=== PATIENT | male | born 1935 | race Caucasian/White ===

== ENCOUNTER 2023-10-02 12:31 | Inpatient (IN) ==
--- NOTE | 2023-10-02 13:04 | Emergency Department Note ---
Impression & Plan Acute respiratory failure with hypoxia, Atrial fibrillation with rapid ventricular response, Acute exacerbation of CHF (congestive heart failure), Elevated brain natriuretic peptide (BNP) level, Atrial fibrillation, new onset ED Provider Note NAME: GALDINO ELMORE AGE: 88 SEX: M ARRIVES VIA: Ambulance INFORMANT: Patient ED PROVIDER(S): Aamir Franz MD CHIEF COMPLAINT: Shortness of breath. PLAN: Disposition: Admit MEDICAL DECISION MAKING: The patient is a pleasant 88 gentleman who presents to the emergency department via EMS from [facility] urgent care for symptoms shortness of breath with new onset atrial fibrillation with RVR in the 130s-150s. Patient ports he has had ongoing cough and congestion over the past couple weeks which has been productive. He has any fevers. He feels short of breath. He denies nausea, vomiting or diarrhea. The patient and his at bedside deny any recent falls. On my evaluation the patient is ill-appearing with labored breathing with wheezes and rhonchi of bilateral lung stewart with O2 saturation down to 88% on room air with respiratory rate in the upper 20s and heart rate ranging from the 110s-130s in atrial fibrillation with RVR. He appears hypervolemic with 1+ bilateral lower extremity pitting edema. He has mild anasarca. EKG demonstrates atrial fibrillation with RVR without overt ST elevation or depression. I did perform a limited bedside cardiac ultrasound which demonstrates suspected mild LV systolic dysfunction with apical hypokinesis/?Takotsubo. Diffuse B-lines of bilateral lung stewart present on ultrasound suggestive of pulmonary edema. I did review the patient's critical illness with the patient and his at the bedside. We discussed the patient's CODE STATUS and he does agree that he would not want CPR if his heart were to stop and would not want to be placed on a breathing machine. Given the patient's work of breathing with new onset atrial fibrillation and CHF with pulmonary edema patient was ordered for BiPAP. Given component of bronchospasm to exam he was ordered for Solu-Medrol and Xopenex neb x 1. Patient's respiratory status was significantly improved subsequently. WBC, hemoglobin and platelets within normal limits. VBG with pCO2 of 56 and pH of 7.35 consistent with component of bronchospasm on exam but no significant hypercapnia. Chemistry without metabolic acidosis. Electrolytes without significant abnormality. LFTs without significant abnormality. High- sensitivity troponin 10.5, within normal limits. BNP is elevated at 672 without prior for comparison but consistent with the patient's atrial fibrillation with RVR and suspicion for component of new CHF. Procalcitonin was undetectable. UA without convincing evidence of infection. Respiratory BioFire was negative. 20 mg of IV Lasix ordered for initiation of diuresis. Case was discussed Anthony Armendariz PAC, with Dr. Zaki Cruz hospitalist who will evaluate the patient for admission. Given the patient's new onset atrial fibrillation and [id number] score we agreed to proceed with initiation of anticoagulation with heparin drip without bolus. Initially, 5 mg of IV Lopressor administered for rate control. Further management per admitting team. Triage Nursing notes reviewed and agree them. Prior/external medical records reviewed Vital Signs: reviewed Differential diagnosis: Reactive airway disease, pneumonia, pneumothorax, COPD, CHF, infections, cardiac ischemia, pulmonary embolism, musculoskeletal, gastrointestinal, as well as other pathologies. ER treatment provided: See below. Diagnostics interpreted by me: ECG: Atrial fibrillation with RVR, 122 bpm, no ectopy, no overt ST elevation or depression, QTc 424, QRS 102. Cardiac Monitoring: An order for continuous cardiac monitoring was placed and demonstrated Atrial fibrillation with RVR, 122 bpm, no ectopy. Laboratory studies: See below Imaging studies: See below Consultation(s): Anthony Armendariz PAC, with Dr. Zaki Cruz hospitalist HPI: The patient is a pleasant 88 gentleman who presents to the emergency department via EMS from [facility] urgent care for symptoms shortness of breath with new onset atrial fibrillation with RVR in the 130s-150s. Patient ports he has had ongoing cough and congestion over the past couple weeks which has been productive. He has any fevers. He feels short of breath. He denies nausea, vomiting or diarrhea. The patient and his at bedside deny any recent falls. ROS: See above HPI for pertinent positives & negatives. A total of 10 systems reviewed and were otherwise negative. VITALS:See Below PHYSICAL EXAMINATION: GENERAL: Awake, alert, ill-appearing, moderate respiratory distress. HENT: Normocephalic, atraumatic. Oropharynx unremarkable. EYES: Normal conjunctiva. Sclera non-icteric. NECK: Supple. No nuchal rigidity. FROM. No JVD. RESPIRATORY: Labored breathing with wheezes and rhonchi of bilateral lung stewart CARDIAC: Tachycardic rate, irregular rhythm. Extremities warm and well perfused. Pulses equal. ABDOMEN: Soft, non-distended. No tenderness to palpation. No rebound or guarding. No masses. RECTAL: Deferred. MUSCULOSKELETAL: Chest examination reveals no tenderness. The back is symmetrical on inspection without obvious abnormality. There is no CVA tenderness to palpation. No joint edema. LOWER EXTREMITIES: Calves are equal size bilaterally and non-tender. 1+ BLE edema. No discoloration. NEURO: A&O x 4 at this time. No focal sensory or motor deficits noted. SKIN: No rash or jaundice noted. ED COURSE: Critical Care: I have personally spent greater than 65 minutes of critical care time in the direct management of this patient. This includes bedside care, interpretation of diagnostic studies, and testing, discussion with consultants, patient, and family members, and other required patient management activities. This 65 minutes is in excess of all separately billable procedures. Aamir Franz MD Past Med/Surg History Medical History Mitral valve insufficiency GERD (gastroesophageal reflux disease) Surgical History Hx of colonoscopy Hx of cataract extraction Family History Mother Cancer Sister Cancer Father Heart disease Social History Smoking Status: Never smoker Do You Dip or Chew Tobacco: No; Hx Alcohol Use: Yes Hx Substance Use: No Preferred Language: Danish Communication Ability: Effective Reserves Clerk Required: No Beliefs That Will Affect Care: None Current Living Situation: Spouse Other Information That Helps Us Care for You: No Feels Safe at Home: Yes Safety Concerns: Feels Safe At This Time Assistive Devices: Glasses Allergies Allergies Allergy/AdvReac Type Severity Reaction Status Date / Time No Known Allergies Allergy Unverified 10/02/23 13:10 Home Meds Home Medications Medication Instructions Recorded Confirmed aspirin 81 mg tablet,delayed 81 mg PO DAILY 10/02/23 10/02/23 release docusate sodium 100 mg capsule 100 mg PO DAILY 10/02/23 10/02/23 (Dulcolax Stool Softener (docusate)) Results & Data (ED) Vital Signs Vital Signs - 24 hr 10/02/23 12:42 10/02/23 12:44 10/02/23 12:45 Pulse Rate 127 H 118 H 119 H Pulse Rate [Right Finger] Pulse Rate from SpO2 Sensor 116 H Respiratory Rate 28 H 22 Respiratory Effort / Characteristics Spontaneous SOB on Exertion Respiratory Depth Normal Respiratory Pattern Blood Pressure 116/94 Blood Pressure Mean 101 Pulse Oximetry 93 91 Oxygen Delivery Method Room Air Fraction of Inspired Oxygen Sepsis Recent Fever Within 48 Hours No Sepsis New/Unexplained Change in Mental Status No Sepsis Action Taken by Nursing Physician Notified 10/02/23 12:48 10/02/23 12:48 10/02/23 12:53 Pulse Rate Pulse Rate [Right Finger] Pulse Rate from SpO2 Sensor Respiratory Rate Respiratory Effort / Characteristics Respiratory Depth Shallow Respiratory Pattern Rapid/Shallow Blood Pressure Blood Pressure Mean Pulse Oximetry 93 88 L Oxygen Delivery Method Room Air Room Air Fraction of Inspired Oxygen Sepsis Recent Fever Within 48 Hours Sepsis New/Unexplained Change in Mental Status Sepsis Action Taken by Nursing 10/02/23 13:00 10/02/23 13:05 10/02/23 13:06 Pulse Rate 128 H 123 H Pulse Rate [Right Finger] 123 H Pulse Rate from SpO2 Sensor 129 H Respiratory Rate 19 28 H 28 H Respiratory Effort / Characteristics Spontaneous Spontaneous Respiratory Depth Normal Respiratory Pattern Tachypnea Blood Pressure Blood Pressure Mean Pulse Oximetry 93 94 94 Oxygen Delivery Method BiPAP Fraction of Inspired Oxygen 30 30 Sepsis Recent Fever Within 48 Hours Sepsis New/Unexplained Change in Mental Status Sepsis Action Taken by Nursing 10/02/23 13:30 Pulse Rate 134 H Pulse Rate [Right Finger] Pulse Rate from SpO2 Sensor 137 H Respiratory Rate 18 Respiratory Effort / Characteristics Respiratory Depth Respiratory Pattern Blood Pressure Blood Pressure Mean Pulse Oximetry 96 Oxygen Delivery Method BiPAP Fraction of Inspired Oxygen Sepsis Recent Fever Within 48 Hours Sepsis New/Unexplained Change in Mental Status Sepsis Action Taken by Nursing Laboratory Data Attestation: I reviewed the patient's lab results. 10/02/23 12:45 10/02/23 12:45 Lab Results 10/02/23 10/02/23 10/02/23 Range/Units 12:45 13:00 13:09 WBC 8.77 (4.8-10.8) K/ul RBC 4.12 L (4.70-6.10) M/uL Hgb 14.4 (14.0-18.0) g/dl POC Hgb 13.9 L (14.0-18.0) g/dl Hct 40.3 L (42.0-52.0) % POC Hct 41 L (42-52) % MCV 97.8 (80.0-100.0) fL MCH 35.0 H (25.0-34.0) pg MCHC 35.7 (32.0-36.0) g/dL RDW Std Deviation 51.8 H (36.4-46.3) fL RDW Coeff of Gabbi 15.2 H (11.5-14.5) % Plt Count 278 (130-400) K/uL MPV 11.2 (9.4-12.4) fL Immature Gran % (Auto) 2.3 % Neut % (Auto) 76.7 % Lymph % (Auto) 11.9 % Zavala % (Auto) 7.4 % Eos % (Auto) 0.9 % Baso % (Auto) 0.8 % Neut # (Auto) 6.73 H (1.40-6.50) K/uL Lymph # (Auto) 1.04 L (1.20-3.40) K/uL Zavala # (Auto) 0.65 H (0.11-0.59) K/uL Eos # (Auto) 0.08 (0.00-0.50) K/uL Baso # (Auto) 0.07 (0.00-0.20) K/uL Immature Gran # (Auto) 0.20 (0.01-0.20) K/uL PT 12.9 H (9.0-12.0) Seconds INR 1.2 H (0.9-1.1) VBG pH 7.35 L (7.36-7.41) VBG pCO2 56 H (38-50) mmHg VBG pO2 22 mmHg VBG HCO3 31 mmol/L VBG O2 Saturation < 60.0 % VBG Base Excess 3.8 mEq/L POC Sodium 141 (135-144) mmol/L Sodium 140 (136-145) mmol/L POC Potassium 4.4 (3.3-5.0) mmol/L Potassium 4.7 (3.5-5.1) mmol/L POC Chloride 103 (101-112) mmol/L Chloride 104 (98-107) mmol/L Carbon Dioxide 31 (21-32) mmol/L POC Total CO2 28 (24-31) mmol/L Anion Gap 5 (3-11) POC Anion Gap 16.0 (16-25) mmol/L POC BUN 32 H (7-18) mg/dl BUN 35 H (6-23) mg/dl Creatinine 1.06 (0.6-1.4) mg/dl POC Creatinine 1.0 (0.6-1.3) mg/dl Est Cr Clr Drug Dosing 51.2 ml/min Est GFR ( Amer) 71.8 ml/min Est GFR (Non-Af Amer) 61.9 ml/min BUN/Creatinine Ratio 33.0 H (10-20) Glucose 131 H (70-99(Fasting)) mg/dl POC Glucose (other) 130 H (70-99) mg/dl Lactate 1.5 (0.4-2.0) mmol/L Calcium 9.4 (8.6-10.3) mg/dl POC Ioniz Calcium Lizzy 1.16 (1.12-1.32) mmol/l Magnesium 2.1 (1.7-2.4) mg/dl Total Bilirubin 1.1 H (0.2-1.0) mg/dl Direct Bilirubin 0.3 H (0-0.2) mg/dl AST 15 (13-39) U/L ALT 19 (7-52) U/L Alkaline Phosphatase 101 (34-104) U/L Troponin I High Sens 10.5 (0-20) pg/ml B-Natriuretic Peptide 672 H (0-100) pg/ml Total Protein 7.1 (6.0-8.3) gm/dl Albumin 4.1 (3.4-5.0) gm/dl Lipase 10 L (11-82) U/L Procalcitonin < 0.05 (0-0.5) ng/ml Urine Color Urine Appearance (Clear) Urine pH (4.5-7.5) Ur Specific [place] (1.000-1.030) Urine Protein (Negative) Urine Glucose (UA) (Negative) Urine Ketones (Negative) Urine Blood (Negative) Urine Nitrite (Negative) Urine Bilirubin (Negative) Urine Urobilinogen (Negative) Ur Leukocyte Esterase (Negative) Urine WBC (Auto) (0-5) /hpf Urine RBC (Auto) (0-4) /hpf U Hyaline Cast (Auto) (0-5) /lpf U Epithel Cells (Auto) (0-5) /lpf Urine Bacteria (Auto) (Negative) Adenovirus (PCR) Not Detected (NotDetected) B. pertussis DNA (PCR) Not Detected (NotDetected) B.parapertussis DNA PCR Not Detected (NotDetected) C. pneumoniae DNA (PCR) Not Detected (NotDetected) Coronavirus OC43 (PCR) Not Detected (NotDetected) Coronavirus HKU1 (PCR) Not Detected (NotDetected) Coronavirus 229E (PCR) Not Detected (NotDetected) SARS-CoV-2 (PCR) Not Detected (NotDetected) Coronavirus NL63 (PCR) Not Detected (NotDetected) Human Metapneumovir PCR Not Detected (NotDetected) Influenza Type A (PCR) Not Detected (NotDetected) Influenza Type B (PCR) Not Detected (NotDetected) M. pneumoniae (PCR) Not Detected (NotDetected) Parainfluenza 1 (PCR) Not Detected (NotDetected) Parainfluenza 2 (PCR) Not Detected (NotDetected) Parainfluenza 3 (PCR) Not Detected (NotDetected) Parainfluenza 4 (PCR) Not Detected (NotDetected) RSV (PCR) Not Detected (NotDetected) Entero/Rhino (PCR) Not Detected (NotDetected) 10/02/23 Range/Units 13:25 WBC (4.8-10.8) K/ul RBC (4.70-6.10) M/uL Hgb (14.0-18.0) g/dl POC Hgb (14.0-18.0) g/dl Hct (42.0-52.0) % POC Hct (42-52) % MCV (80.0-100.0) fL MCH (25.0-34.0) pg MCHC (32.0-36.0) g/dL RDW Std Deviation (36.4-46.3) fL RDW Coeff of Gabbi (11.5-14.5) % Plt Count (130-400) K/uL MPV (9.4-12.4) fL Immature Gran % (Auto) % Neut % (Auto) % Lymph % (Auto) % Zavala % (Auto) % Eos % (Auto) % Baso % (Auto) % Neut # (Auto) (1.40-6.50) K/uL Lymph # (Auto) (1.20-3.40) K/uL Zavala # (Auto) (0.11-0.59) K/uL Eos # (Auto) (0.00-0.50) K/uL Baso # (Auto) (0.00-0.20) K/uL Immature Gran # (Auto) (0.01-0.20) K/uL PT (9.0-12.0) Seconds INR (0.9-1.1) VBG pH (7.36-7.41) VBG pCO2 (38-50) mmHg VBG pO2 mmHg VBG HCO3 mmol/L VBG O2 Saturation % VBG Base Excess mEq/L POC Sodium (135-144) mmol/L Sodium (136-145) mmol/L POC Potassium (3.3-5.0) mmol/L Potassium (3.5-5.1) mmol/L POC Chloride (101-112) mmol/L Chloride (98-107) mmol/L Carbon Dioxide (21-32) mmol/L POC Total CO2 (24-31) mmol/L Anion Gap (3-11) POC Anion Gap (16-25) mmol/L POC BUN (7-18) mg/dl BUN (6-23) mg/dl Creatinine (0.6-1.4) mg/dl POC Creatinine (0.6-1.3) mg/dl Est Cr Clr Drug Dosing ml/min Est GFR ( Amer) ml/min Est GFR (Non-Af Amer) ml/min BUN/Creatinine Ratio (10-20) Glucose (70-99(Fasting)) mg/dl POC Glucose (other) (70-99) mg/dl Lactate (0.4-2.0) mmol/L Calcium (8.6-10.3) mg/dl POC Ioniz Calcium Lizzy (1.12-1.32) mmol/l Magnesium (1.7-2.4) mg/dl Total Bilirubin (0.2-1.0) mg/dl Direct Bilirubin (0-0.2) mg/dl AST (13-39) U/L ALT (7-52) U/L Alkaline Phosphatase (34-104) U/L Troponin I High Sens (0-20) pg/ml B-Natriuretic Peptide (0-100) pg/ml Total Protein (6.0-8.3) gm/dl Albumin (3.4-5.0) gm/dl Lipase (11-82) U/L Procalcitonin (0-0.5) ng/ml Urine Color Dark Yellow Urine Appearance Clear (Clear) Urine pH 5.0 (4.5-7.5) Ur Specific [place] 1.026 (1.000-1.030) Urine Protein Trace H (Negative) Urine Glucose (UA) Negative (Negative) Urine Ketones Trace H (Negative) Urine Blood Negative (Negative) Urine Nitrite Negative (Negative) Urine Bilirubin 1+ H (Negative) Urine Urobilinogen Negative (Negative) Ur Leukocyte Esterase Negative (Negative) Urine WBC (Auto) 1-5 (0-5) /hpf Urine RBC (Auto) 0-4 (0-4) /hpf U Hyaline Cast (Auto) 1-5 (0-5) /lpf U Epithel Cells (Auto) 10-20 H (0-5) /lpf Urine Bacteria (Auto) Negative (Negative) Adenovirus (PCR) (NotDetected) B. pertussis DNA (PCR) (NotDetected) B.parapertussis DNA PCR (NotDetected) C. pneumoniae DNA (PCR) (NotDetected) Coronavirus OC43 (PCR) (NotDetected) Coronavirus HKU1 (PCR) (NotDetected) Coronavirus 229E (PCR) (NotDetected) SARS-CoV-2 (PCR) (NotDetected) Coronavirus NL63 (PCR) (NotDetected) Human Metapneumovir PCR (NotDetected) Influenza Type A (PCR) (NotDetected) Influenza Type B (PCR) (NotDetected) M. pneumoniae (PCR) (NotDetected) Parainfluenza 1 (PCR) (NotDetected) Parainfluenza 2 (PCR) (NotDetected) Parainfluenza 3 (PCR) (NotDetected) Parainfluenza 4 (PCR) (NotDetected) RSV (PCR) (NotDetected) Entero/Rhino (PCR) (NotDetected) Administered Medications Heparin Sodium/Dextrose (Heparin Sodium/Dextrose) 25,000 units in 500 mls @ 28 mls/hr IV .[id number] DORIAN; Protocol Stop: 11/01/23 14:29 Last Titration: 10/02/23 18:52 Dose: 1,400 units/hr, 28 mls/hr Documented By: ADI Co-signed By: CAROLINE Admin: 10/02/23 14:32 Dose: 1,400 units/hr, 28 mls/hr Documented By: ABIMAEL Co-signed By: HEIDY Discontinued Medications Furosemide (Furosemide Inj 20 Mg/2 Ml Vial) 20 mg IV ONE ONE Stop: 10/02/23 13:46 Last Admin: 10/02/23 13:57 Dose: 20 mg Documented By: LARRY Co-signed By: HEIDY Heparin Sodium/Dextrose (Heparin Iv Adult Wt-Based Standard *No* Initial Bolus Protocol) 1 each IV ONE STA; Protocol Stop: 10/02/23 14:10 Last Admin: 10/02/23 14:33 Dose: 1 each Documented By: ABIMAEL Levalbuterol HCl (Levalbuterol Hcl 0.63 Mg/3 Ml Neb) 0.63 mg NEB NOW STA; Protocol Stop: 10/02/23 12:41 Last Admin: 10/02/23 13:05 Dose: 0.63 mg Documented By: HAKEEM Methylprednisolone (Methylprednisolone 125 Mg/2 Ml Vial) 125 mg IV NOW STA Stop: 10/02/23 12:41 Last Admin: 10/02/23 13:09 Dose: 125 mg Documented By: BRANDIE Metoprolol Tartrate (Metoprolol Tartrate 1 Mg/Ml Vial) 5 mg IV NOW STA Stop: 10/02/23 14:10 Last Admin: 10/02/23 14:33 Dose: 5 mg Documented By: ABIMAEL Metoprolol Tartrate (Metoprolol Tartrate 25 Mg Tab) 12.5 mg PO BID [facility] Stop: 11/01/23 14:59 Last Admin: 10/02/23 17:29 Dose: 12.5 mg Documented By: ASHLEY Imaging Data Radiologist's Impression: Chest X-Ray 10/02/23 12:37 XR chest 1V portable HISTORY: Sepsis COMPARISON: None. FINDINGS: No pneumothorax. The heart is enlarged. Trace bilateral pleural fusions and bibasilar linear densities. There is diffuse interstitial/vascular thickening consistent with mild congestive change. Calcifications within the aortic knob. No acute fractures identified. IMPRESSION: 1. Cardiomegaly with mild congestive change and trace bilateral pleural effusions. 2. Bibasilar linear densities are nonspecific but may represent atelectasis. A pneumonia could also have a similar appearance in the appropriate clinical setting. ACT 112: Negative or not required by law. Electronically signed by: Alon Shaikh M.D. 10/02/2023 1:23 PM Discharge Plan Visit Data Chief Complaint: Shortness of Breath/Dyspnea Stated Complaint: SOB ED Provider: Aamir Franz Discharge Problem: Acute respiratory failure with hypoxia, Atrial fibrillation with rapid ventricular response, Acute exacerbation of CHF (congestive heart failure), Elevated brain natriuretic peptide (BNP) level, Atrial fibrillation, new onset Patient Disposition: Admitted As Inpatient Discharge Instructions Interventions: ED Discharge Assessment Last Done: 10/02/23 17:55 Discharge Problem: Acute exacerbation of CHF (congestive heart failure) Qualifiers: Heart failure type: unspecified Qualified Code(s): I50.9 - Heart failure, unspecified
[2023-10-02] MEDS: LEVALBUTEROL HCL 0.63 MG/3 ML NEB NEB STA (13:05)
[2023-10-02] MEDS: methylPREDNISolone 125 MG/2 ML VIAL IV STA (13:09)
[2023-10-02 13:11] LABS: Base Excess VBG 3.8 mEq/L; HCO3 VBG 31 mmol/L; Oxygen Saturation VBG < 60.0 %; PCO2 VBG 56 mmHg (38-50); PO2 VBG 22 mmHg; pH VBG 7.35 (7.36-7.41)
[2023-10-02 13:22] LABS: iSTAT Hemoglobin 13.9 g/dl (14.0-18.0); iSTAT Ionized Calcium 1.16 mmol/l (1.12-1.32); iSTAT Potassium 4.4 mmol/L (3.3-5.0)
--- NOTE | 2023-10-02 13:24 | XRay Report ---
XR chest 1V portable HISTORY: Sepsis COMPARISON: None. FINDINGS: No pneumothorax. The heart is enlarged. Trace bilateral pleural fusions and bibasilar linea r densities. There is diffuse interstitial/vascular thickening consistent with mild congestive change . Calcifications within the aortic knob. No acute fractures identified. IMPRESSION: 1. Cardiomegaly with mild congestive change and trace bilateral pleural effusions. 2. Bibasilar linear densities are nonspecific but may represent atelectasis. A pneumonia could also h ave a similar appearance in the appropriate clinical setting. ACT 112: Negative or not required by law. Electronically signed by: Alon Shaikh M.D. 10/02/2023 1:23 PM
[2023-10-02 13:35] LABS: Albumin Level 4.1 gm/dl (3.4-5.0); Bilirubin Direct 0.3 mg/dl (0-0.2); Bilirubin,Total 1.1 mg/dl (0.2-1.0); Calcium 9.4 mg/dl (8.6-10.3); Creatinine Clr Calc Pharmacy 51.2 ml/min; Est GFR (African American) 71.8 ml/min; Est GFR (Non-African American) 61.9 ml/min; Magnesium 2.1 mg/dl (1.7-2.4); Potassium 4.7 mmol/L (3.5-5.1); Total Protein 7.1 gm/dl (6.0-8.3)
[2023-10-02 13:38] LABS: Basophils # (auto) 0.07 K/uL (0.00-0.20); Basophils % (auto) 0.8 %; Eosinophils # (auto) 0.08 K/uL (0.00-0.50); Eosinophils % (auto) 0.9 %; Hematocrit (blood only) 40.3 % (42.0-52.0); Hemoglobin 14.4 g/dl (14.0-18.0); Immature Granulocytes % (auto) 2.3 %; Lymphocytes # (auto) 1.04 K/uL (1.20-3.40); Lymphocytes % (auto) 11.9 %; Mean Corpuscular Hgb Conc 35.7 g/dL (32.0-36.0); Mean Corpuscular Volume 97.8 fL (80.0-100.0); Mean Platelet Volume 11.2 fL (9.4-12.4); Monocytes # (auto) 0.65 K/uL (0.11-0.59); Monocytes % (auto) 7.4 %; Neutrophils # (auto) 6.73 K/uL (1.40-6.50); Neutrophils % (auto) 76.7 %; Platelet Count 278 K/uL (130-400); RDW Coefficient of Variation 15.2 % (11.5-14.5); RDW Standard Deviation 51.8 fL (36.4-46.3); Red Blood Count 4.12 M/uL (4.70-6.10); White Blood Count 8.77 K/ul (4.8-10.8)
[2023-10-02 13:41] LABS: Troponin I High Sensitivity 10.5 pg/ml (0-20)
[2023-10-02 13:47] LABS: INR 1.2 (0.9-1.1); Prothrombin Time 12.9 Seconds (9.0-12.0)
[2023-10-02 13:54] LABS: Appearance Urine Clear (Clear); Bacteria Urine Automated Negative (Negative); Blood Urine Negative (Negative); Color Urine Dark Yellow; Glucose Urine UA Negative (Negative); Ketones Urine Trace (Negative); Leukocyte Esterase Urine Negative (Negative); Nitrite Urine Negative (Negative); Protein Urine Trace (Negative); RBC Urine Automated 0-4 /hpf (0-4); Specific Gravity Urine 1.026 (1.000-1.030); Urobilinogen Urine Negative (Negative)
[2023-10-02 13:55] LABS: Bilirubin Urine 1+ (Negative)
[2023-10-02] MEDS: FUROSEMIDE INJ 20 MG/2 ML VIAL IV ONE (13:57)
[2023-10-02 14:00] LABS: Adenovirus PCR Not Detected (NotDetected); Bordetella parapertussis PCR Not Detected (NotDetected); Bordetella pertussis PCR Not Detected (NotDetected); Chlamydia pneumoniae PCR Not Detected (NotDetected); Coronavirus 229E PCR Not Detected (NotDetected); Coronavirus CoV-2 (COVID19)PCR Not Detected (NotDetected); Coronavirus HKU1 PCR Not Detected (NotDetected); Coronavirus NL63 PCR Not Detected (NotDetected); Coronavirus OC43PCR Not Detected (NotDetected); Human Metapneumovirus PCR Not Detected (NotDetected); Influenza A PCR Not Detected (NotDetected); Influenza B PCR Not Detected (NotDetected); Mycoplasma pneumoniae PCR Not Detected (NotDetected); Parainfluenza Virus 1 PCR Not Detected (NotDetected); Parainfluenza Virus 2 PCR Not Detected (NotDetected); Parainfluenza Virus 3 PCR Not Detected (NotDetected); Parainfluenza Virus 4 PCR Not Detected (NotDetected); Respiratory Syncytial VirusPCR Not Detected (NotDetected); Rhinovirus/Enterovirus PCR Not Detected (NotDetected)
--- NOTE | 2023-10-02 14:11 | History & Physical Report ---
Date of Service October 02, 2023 Assessment & Plan (1) Acute respiratory failure with hypoxia: (2) Atrial fibrillation with rapid ventricular response: (3) Acute exacerbation of CHF (congestive heart failure): (4) GERD (gastroesophageal reflux disease): Plan: - Admit to PCU - Cardiology consulted for acute new onset CHF exacerbation with fluid overload, atrial fibrillation with RVR with HR in 130s, acute hypoxic resp failure with no previous O2 needs, likely exacerbated by viral illness which started a few weeks ago. - Pt on 3 L via NC s/p nebulizer tx and BIPAP for short time frame, wet cough, respiratory status significantly improved. VBG showing pH of 7.35, P CO2 56. - Lasix 20 mg IV given, vera cath inserted for diuresis, continue lasix IV pending urine outs - Obtain 2d echo - EKG reviewed personally with afib rvr with hr in 140s - Metoprolol 5 mg IV x 1 now - improved HR to high 90s-105, will start metoprolol 12.5 mg PO BID with first dose now - BNP is 672, inital troponin negative - Started on heparin gtt without bolus for CHADs Vasc score of 2 - Will start on dulcolax and miralax for hx of constipation, hx of hemorrhoid last summer and remote hx of c.diff - Pt initially received solumedrol 125 mg IV x 1, however no hx of smoking, negative RVP, no need to continue for now - will continue home baby aspirin DVT ppx: teds, scds, heparin gtt Lines: 2 PIV FEN/GI: HH diet, fluid restriction 1500 ml CODE: DNR/DNI Dispo: From home, likely to remain in the hospital x 1-2 days A total of 80 minutes were spent with greater than 50% of that time face to face with the patient, personally reviewing all current laboratories, imaging studies, past medication reconciliation, outpatient chart review, and discussion with specialists to collaborate care for the patient with attending. Please see attending documentation for corrections and/or additions. History of Present Illness Chief Complaint: Shortness of breath Primary Care Provider: Brett Agustin, This is an 88-year-old male with PMHx of GERD, history of basal cell carcinoma of scalp/skin of neck, mitral valve regurgitation, history of colonic polyp removal, presents to the hospital with acute onset of shortness of breath. He was sent over from urgent care visit to facility because of O2 sats reading in the high 80s low 90s.. Patient is found to be in what appears to be new onset heart failure and atrial fibrillation with heart rate of 120-130s upon presentation. He notes that he has had viral symptoms for a few weeks. Here his BNP is 672, heart rate in the 130s, BP is stable at 116/94, he was placed on DuoNeb treatment and BiPAP and his respiratory status significantly improved. VBG showing pH of 7.35, P CO2 56. The patient is present at bedside. Pt states that on Sep 17 pt went to a nurse visit for a cough, was given mucinex. He was working with a nurse and got a cough medication Desolin every 12 hrs. Pt still with a nonproductive cough. He has had dizziness, nausea and sometimes disoriented. Pt concerned that he wasn't breathing well, not getting enough O2. She has attempted to get in contact with provider since last due to his decline, but today was instructed to go to urgent care clinic. They referred him here. Pt notes he has never had heart issues before, denies swelling in the legs, but notes there is some puffiness compared to normal. He admits to increased shortness of breath on exertion, no orthopnea. He has never required previous hospitalization. notes that he has never experienced intermittent memory issues or timeframes of delirium prior to having these viral symptoms and issues he is currently experiencing. Allergies Allergy/AdvReac Type Severity Reaction Status Date / Time No Known Allergies Allergy Unverified 10/02/23 13:10 Home Medications Medication Instructions Recorded Confirmed Type aspirin 81 mg tablet,delayed 81 mg PO DAILY 10/02/23 10/02/23 History release docusate sodium 100 mg capsule 100 mg PO DAILY 10/02/23 10/02/23 History (Dulcolax Stool Softener (docusate)) Past Med/Surg History Medical History (Updated 10/02/23 @ 14:20 by Jessi Olivarez PA-C) GERD (gastroesophageal reflux disease) Surgical History (Updated 10/02/23 @ 14:17 by Jessi Olivarez PA-C) Hx of colonoscopy Hx of cataract extraction Family History (Updated 10/02/23 @ 14:18 by Jessi Olivarez PA-C) Mother Cancer Sister Cancer Father Heart disease Social History (Updated 10/02/23 @ 14:43 by Jessi Olivarez PA-C) Smoking Status: Never smoker Do You Dip or Chew Tobacco: No; Hx Alcohol Use: No Hx Substance Use: No Feels Safe at Home: Yes Review of Systems Review of Systems: Constitutional: No fever, sweats or chills Eyes: No diplopia, no worsening or blurred vision ENT: normal hearing, no trouble swallowing Respiratory: + nonproductive cough, no sputum, +dyspnea on exertion Cardiovascular: No chest pain, tightness or palpitations, denies orthopnea Abdomen: No pain, nausea, vomiting, diarrhea or constipation Musculoskeletal: No joint pain, calf pain, + lower extremity swelling Neurologic: No weakness, numbness/tingling, or balance problems Psychiatric: No anxiety or depression Skin: No rash or itch Physical Exam Physical Exam: General: awake, alert, no apparent distress, elderly white male Head: Normocephalic, atraumatic ENT: PERRL, EOMI, no pharyngeal exudate, mucous membranes moist Chest: Wet breath sounds, on 3 L via NC, wet cough is nonproductive Cardiac:+ atrial fibrillation with RVR, no murmur, no JVD, normal peripheral pulses, good capillary refill Abdominal: NABS x 4 quadrants, soft, nondistended, nontender to palpation, no rebound or guarding Extremities: Normal inspection, 2+ peripheral edema up to knees, dull erythema BLE, no signs of acute skin infection, calfs nontender to palpation Psych: Normal mood and affect Neuro: AAO x 3, strength intact bilaterally and rated 5/5, no motor deficits, speech is clear, no peripheral sensory deficits Results & Data Results & Data Vital Signs (Past 12 Hours) Vital Signs Pulse Pulse Resp BP Pulse Ox O2 Del Method FiO2 10/02/23 13:30 134 H 18 96 BiPAP 10/02/23 13:06 123 H 28 H 94 BiPAP 30 10/02/23 13:05 123 H 28 H 94 30 10/02/23 13:00 128 H 19 93 10/02/23 12:53 88 L Room Air 10/02/23 12:48 93 Room Air 10/02/23 12:45 119 H 02/06/24 12:44 118 H 22 91 10/02/23 12:42 127 H 28 H 116/94 93 Room Air Laboratory Results 10/02/23 12:54 Aerobic Blood Culture - Pending Blood Anaerobic Blood Culture - Pending 10/02/23 12:45 Aerobic Blood Culture - Pending Blood Anaerobic Blood Culture - Pending 10/02/23 10/02/23 10/02/23 13:25 13:09 13:00 WBC RBC Hgb POC Hgb 13.9 L Hct POC Hct 41 L MCV MCH MCHC RDW Std Deviation RDW Coeff of Gabbi Plt Count MPV Immature Gran % (Auto) Neut % (Auto) Lymph % (Auto) [place] % (Auto) Eos % (Auto) Baso % (Auto) Neut # (Auto) Lymph # (Auto) [place] # (Auto) Eos # (Auto) Baso # (Auto) Immature Gran # (Auto) PT INR VBG pH 7.35 L VBG pCO2 56 H VBG pO2 22 VBG HCO3 31 VBG O2 Saturation < 60.0 VBG Base Excess 3.8 POC Sodium 141 Sodium POC Potassium 4.4 Potassium POC Chloride 103 Chloride Carbon Dioxide POC Total CO2 28 Anion Gap POC Anion Gap 16.0 POC BUN 32 H BUN Creatinine POC Creatinine 1.0 Est Cr Clr Drug Dosing Est GFR ( Amer) Est GFR (Non-Af Amer) BUN/Creatinine Ratio Glucose POC Glucose (other) 130 H Lactate 1.5 Calcium POC Ioniz Calcium Lizzy 1.16 Magnesium Total Bilirubin Direct Bilirubin AST ALT Alkaline Phosphatase Troponin I High Sens B-Natriuretic Peptide Total Protein Albumin Lipase Procalcitonin Urine Color Dark Yellow Urine Appearance Clear Urine pH 5.0 Ur Specific [place] 1.026 Urine Protein Trace H Urine Glucose (UA) Negative Urine Ketones Trace H Urine Blood Negative Urine Nitrite Negative Urine Bilirubin 1+ H Urine Urobilinogen Negative Ur Leukocyte Esterase Negative Urine WBC (Auto) 1-5 Urine RBC (Auto) 0-4 U Hyaline Cast (Auto) 1-5 U Epithel Cells (Auto) 10-20 H Urine Bacteria (Auto) Negative Adenovirus (PCR) B. pertussis DNA (PCR) B.parapertussis DNA PCR C. pneumoniae DNA (PCR) Coronavirus OC43 (PCR) Coronavirus HKU1 (PCR) Coronavirus 229E (PCR) SARS-CoV-2 (PCR) Coronavirus NL63 (PCR) Human Metapneumovir PCR Influenza Type A (PCR) Influenza Type B (PCR) M. pneumoniae (PCR) Parainfluenza 1 (PCR) Parainfluenza 2 (PCR) Parainfluenza 3 (PCR) Parainfluenza 4 (PCR) RSV (PCR) Entero/Rhino (PCR) 10/02/23 12:45 WBC 8.77 RBC 4.12 L Hgb 14.4 POC Hgb Hct 40.3 L POC Hct MCV 97.8 MCH 35.0 H MCHC 35.7 RDW Std Deviation 51.8 H RDW Coeff of Gabbi 15.2 H Plt Count 278 MPV 11.2 Immature Gran % (Auto) 2.3 Neut % (Auto) 76.7 Lymph % (Auto) 11.9 [place] % (Auto) 7.4 Eos % (Auto) 0.9 Baso % (Auto) 0.8 Neut # (Auto) 6.73 H Lymph # (Auto) 1.04 L [place] # (Auto) 0.65 H Eos # (Auto) 0.08 Baso # (Auto) 0.07 Immature Gran # (Auto) 0.20 PT 12.9 H INR 1.2 H VBG pH VBG pCO2 VBG pO2 VBG HCO3 VBG O2 Saturation VBG Base Excess POC Sodium Sodium 140 POC Potassium Potassium 4.7 POC Chloride Chloride 104 Carbon Dioxide 31 POC Total CO2 Anion Gap 5 POC Anion Gap POC BUN BUN 35 H Creatinine 1.06 POC Creatinine Est Cr Clr Drug Dosing 51.2 Est GFR ( Amer) 71.8 Est GFR (Non-Af Amer) 61.9 BUN/Creatinine Ratio 33.0 H Glucose 131 H POC Glucose (other) Lactate Calcium 9.4 POC Ioniz Calcium Lizzy Magnesium 2.1 Total Bilirubin 1.1 H Direct Bilirubin 0.3 H AST 15 ALT 19 Alkaline Phosphatase 101 Troponin I High Sens 10.5 B-Natriuretic Peptide 672 H Total Protein 7.1 Albumin 4.1 Lipase 10 L Procalcitonin < 0.05 Urine Color Urine Appearance Urine pH Ur Specific [place] Urine Protein Urine Glucose (UA) Urine Ketones Urine Blood Urine Nitrite Urine Bilirubin Urine Urobilinogen Ur Leukocyte Esterase Urine WBC (Auto) Urine RBC (Auto) U Hyaline Cast (Auto) U Epithel Cells (Auto) Urine Bacteria (Auto) Adenovirus (PCR) Not Detected B. pertussis DNA (PCR) Not Detected B.parapertussis DNA PCR Not Detected C. pneumoniae DNA (PCR) Not Detected Coronavirus OC43 (PCR) Not Detected Coronavirus HKU1 (PCR) Not Detected Coronavirus 229E (PCR) Not Detected SARS-CoV-2 (PCR) Not Detected Coronavirus NL63 (PCR) Not Detected Human Metapneumovir PCR Not Detected Influenza Type A (PCR) Not Detected Influenza Type B (PCR) Not Detected M. pneumoniae (PCR) Not Detected Parainfluenza 1 (PCR) Not Detected Parainfluenza 2 (PCR) Not Detected Parainfluenza 3 (PCR) Not Detected Parainfluenza 4 (PCR) Not Detected RSV (PCR) Not Detected Entero/Rhino (PCR) Not Detected Diagnostic Findings Chest X-Ray 10/02/23 12:37 XR chest 1V portable HISTORY: Sepsis COMPARISON: None. FINDINGS: No pneumothorax. The heart is enlarged. Trace bilateral pleural fusions and bibasilar linear densities. There is diffuse interstitial/vascular thickening consistent with mild congestive change. Calcifications within the aortic knob. No acute fractures identified. IMPRESSION: 1. Cardiomegaly with mild congestive change and trace bilateral pleural effusions. 2. Bibasilar linear densities are nonspecific but may represent atelectasis. A pneumonia could also have a similar appearance in the appropriate clinical setting. ACT 112: Negative or not required by law. Electronically signed by: Alon Shaikh M.D. 10/02/2023 1:23 PM ECG Additional Comments: Atrial fibrillation with RVR Code Status & VTE Plan Code Status DNR/DNI - discussed with pt and at bedside Supervising Physician Co-Signing Physician Notes I have seen and discussed the case with the collaborating RACHELL. I agree with the above H&P. I have reviewed and confirmed the patients medical history, the findings on physical examination, and the patients diagnosis and treatment plan with Sher LOVETT and agree with the information documented. In short, Mr. Lopez is an 88 year old gentleman with history of mitral insufficiency, GERD, and constipation who is being admitted for management for a fib. He presented to [facility] on 10/02 with respiratory distress after attempting to manage cold like symptoms for over a week. Patient attempted over the counter medications with no success. CXR found to be congested c/w pulmonary edema. EKG a fib with RVR. s/p 20 lasix, 5mg metoprolol IV with good response. Physical exam with diffuse crackles/rhonchorous breath sounds, rapid rate and irregularly irregular CV exam, BLE 2+ up to knee. Vera placed 10/02 #New onset Atrial fibrillation with RVR #New onset heart failure likely iso recent viral illness -ECHO ordered -Furosemide IV -Start metoprolol 12.5mg q6h -Cards consult Rest of plan as above I have reviewed the advanced practitioner's documentation, and I agree with, and take responsibility for the plan of care
[2023-10-02] MEDS: HEPARIN SODIUM/DEXTROSE 25,000 UNITS/500 ML BAG IV SCH (14:32)
[2023-10-02] MEDS: METOPROLOL TARTRATE 1 MG/ML VIAL IV STA (14:33)
[2023-10-02] MEDS: Heparin IV Adult Wt-Based Standard *NO* INITIAL Bolus Protocol IV STA (14:33)
--- NOTE | 2023-10-02 14:37 | Electrocardiogram Report ---
Test Reason : Blood Pressure : / mmHG Vent. Rate : 122 BPM Atrial Rate : 000 BPM P-R Int : 000 ms QRS Dur : 102 ms QT Int : 298 ms P-R-T Axes : 000 -20 032 degrees QTc Int : 424 ms Atrial fibrillation with rapid ventricular response Abnormal ECG No previous ECGs available Confirmed by Tee Light ([id number]) on 10/02/2023 2:37:24 PM Referred By: REFERRED SELF Confirmed By:Tee Light
[2023-10-02] MEDS: METOPROLOL TARTRATE 25 MG TAB PO SCH ×2 (17:29→19:51)
[2023-10-02] MEDS ORDERED: ONDANSETRON INJ 2 MG/ML 2 ML VIAL IV PRN (18:16)
[2023-10-02] MEDS ORDERED: ACETAMINOPHEN 325 MG TAB PO PRN (18:16)
[2023-10-02] MEDS ORDERED: LEVALBUTEROL 1.25MG/0.5ML NEB NEB PRN (18:35)
[2023-10-02] MEDS ORDERED: LEVALBUTEROL 1.25MG/0.5ML NEB NEB SCH (18:45)
[2023-10-02] MEDS: LEVALBUTEROL 1.25MG/0.5ML NEB NEB SCH (19:44)
[2023-10-02] MEDS: bisacodyL 5 MG TABEC PO SCH (19:50)
[2023-10-02] MEDS: FAMOTIDINE 10 MG TABLET PO ONE (19:50)
[2023-10-02 20:50] LABS: ANTI-Xa, UFH(UnfractionatedHep 0.57 IU/ml (0.3-0.7)
--- OUTSIDE RECORDS SUMMARY | 2023-10-02 21:56 | External Medical Summary | Summary of Care ---
Author Name Unknown Organization [facility] Address [address] [place] [address] Phone [phone] Care Team Providers Care Supervisory It Specialist Name Role Phone Vamsi Brett Luna DO Primary Care Provider Reason for Visit * Reason Onset Date Comments Advice 06/18/2023 Encounter Details Date Type Department Care Team (Late st Contact Info) Description 06/18/2023 Telephone Family Practice [facility] [address] [place] [address] Aziza Silvestre CRNP [address] [place] [address] Advice Allergies No known active allergiesdocumented as of this encounter (statuses as of 09/17/2023) Medications Medication Sig Dispensed Refills Start Date End Date Status ASPIRIN 81 MG PO TABS 0 Act gala Docusate Sodium 50 MG Oral Capsule (Colace)Indications:Cons tipation, unspecified constipation type Take by mouth 2 times a day. 0 Active documented as of this encounter (statuses as of 09/17/2023) Active Problems Problem Noted Date Diagnosed Date Rectal pain 05/23/2023 Fall 05/23/2023 C. difficile colitis 05/09/2023 Hemorrhoids, external without complications 04/27 Acute diarrhea 05/04/2023 Mild dehydration 05/04/2023 Gastroesophageal reflux disease 03/09/2020 Obesity, Class I, BMI 30.0-34.9 (see actual BMI) 03/09/2020 Family history of colon cancer 07/01/2012 Overview: father 2+ mitral insufficiency 06/06/2010 ADVANCE DIRECTIVE INFORMATION 06/05/2007 Overview: Information offered-patient declined. 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 documented as of this encounter (statuses as of 09/17/2023) Resolved Problems Problem Noted Date Diagnosed Date Resolved Date Prediabetes 03/03/2019 06/08/2022 Overview: Per Prediabetes protocol documented as of this encounter (statuses as of 09/17/2023) Immunizations Name Administration Dates Next Due COVID-19 mRNA, LNP-s, No Pre serve, 2-Dose Series (Peek Kids) 06/01/2021,11/23/2020,10/28/2020 COVID-19, LNP-s, No Preserve , Joey-sucrose, Ages 12+ (Pfizer) 12/08/2021 COVID-19, MRNA-LNP, 23-24, P F, 30 MCG/0.3 mL, 12 YRS AND ABOVE, IM (PFIZER-Comirnaty) 06/18/2023 Covid-19, Mrna, Lnp-s, Pf, B ivalent, 30 Mcg, IM, 12 yrs and above (Pfizer) 05/22/2022 Pneumococcal Conjugate Vacc, 13 Valent (Prevnar) 08/28/2014 Pneumococcal Polysaccharide PPV23 (Pneumovax) 09/27/1999 Season Influenza, Quad, PF, Adjuvanted, 65+ Yrs, IM (FLUAD) 06/11/2020 Seasonal Influenza, PF, 6 M & above, IM , (FluLaval or Fluzone) 05/28/2021,05/17/2018 Seasonal Influenza, Quadriva lent Hd (Fluzone Hd) 05/23/2023,05/04/2022 Seasonal Influenza, Quadriva lent, No Preserve, IM 05/11/2017,08/31/2016,06/10/2015 Seasonal Influenza, Split, I IV3, With Preserve, Inj 06/26/2014,07/03/2013,07/01/2012,06/30,06/28/2010,04/29/2009,06/19/2008 ,06/05/2007,07/05/2006 TDAP (age 10 and older)(Boostrix) 05/04/2022,12/2011 Varicella Zoster Vaccine (Adult) 07/03/2013 Zoster Vaccine Recombinant (Shingrix) 05/29/2019 ,02/18/2019,12/16/2018 documented as of this encounter Social History Tobacco Use Types Packs/Day Years Used Date Smoking Tobacco: Never Smokeless Tobacco: Never Alcohol Use Standard Drinks/Week Comments Yes 0 (1 standard drink = 0.6 oz pur e alcohol) occ social PHQ-2 Answer Date Recorded PHQ Adult Total Score 0 09/17/2023 Hunger Vital Sign Answer Date Recorded Within the past 12 months, y ou worried that your food would run out before you got the money to buy more. Never true 09/17/19 24 Within the past 12 months, t he food you bought just didn't last and you didn't have money to get more. Never true 09/17/2023 Sex and Gender Information Value Date Recorded Sex Assigned at Male 03/09/2020 1:22 PM EDT Gender Identity Male 03/09/2020 1:22 PM EDT Sexual Orientation Straight 03/09/2020 1: 22 PM EDT Job Start Date Occupation Industry Not on file Not on file Not on file documented as of this encounter Miscellaneous Notes * Telephone Encounter - Brittny Agustin OSA - 06/27/2023 8:57 AM EDT I called and talked to , she was upset that she called 06-18 and never got a call back for anything till 06-25 when I cleft a VM for an appt. She states they figured everything out and no longer needs our help and he's going better but was upset on the time frame it took to get a call back for anything FYI * Telephone Encounter - Brittny Agustin OSA - 06/25/2023 8:00 AM EDT LM for pt/ to call back to offer an appt with any provider * Telephone Encounter - Aziza Silvestre CRNP - 06/22/2023 3:56 PM EDT Please schedule appt in person to re evaluate patient. * Telephone Encounter - Carly Camarillo OSA - 06/18/2023 9:19 AM EDT Patient's states patient fell @ 3 wks ago. Aziza suggested if he is not improving to call. declined appointment. Pt is still having pain in the leg when he walks. calling to speak with Aziza HONEYCUTT documented in this encounter Plan of Treatment Upcoming Encounters Date Type Department Care Team (Late st Contact Info) Description 02/06/2024 8:00 AM EDT Office Visit Family Practice [facility] [address] [place] [address] Brett Agustin, [address] [place] [id number] Health Maintenance Due Date Last Done Comments Depression Screening 09/17/2024 09/17/2023 DTaP,Tdap,and Td Vaccines (3 - Td or Tdap) 05/04/2032 05/04/2022, 07/01/2012, 05/08/2003 Pneumococcal Vaccine: 65+ Years Completed 08/28/2014, 05/08/2003, 09/27/1999 Zoster Vaccines Completed 05/29/2019, 01/26, 12/16/2018, Additional history exists Influenza Vaccine (FLU shot) Completed , 05/04/2022, 05/28/2021, Additional history exists COVID-19 Vaccine Completed 06/18/2023, , 12/08/2021, Additional history exists GARDASIL-HPV IMMUNIZATION SERIES Aged Out No longer eligible based on patient's age to complete this topic Hepatitis B Aged Out No longer eligi ble based on patient's age to complete this topic MENINGOCOCCAL (MENACTRA/MENVEO) Aged Out No longer eligible based on patient's age to complete this topic documented as of this encounter Medical Devices Not on filedocumented as of this encounter Care Teams Supervisory It Specialist Relationship Specialty Start Date End Date Brett Agustin DO [address] [place] [id number] PCP - General Family Medicine 03/09/20 documented as of this encounter
--- OUTSIDE RECORDS SUMMARY | 2023-10-02 21:56 | External Medical Summary | Summary of Care ---
Author Name Unknown Organization [facility] Address [address] [place] [address] Phone [phone] Care Team Providers Care Childcare Worker Name Role Phone Vamsi Brett Luna DO Primary Care Provider Reason for Visit * Reason Onset Date Comments Adult Annual Wellness Visit, Subsequent Visit Encounter Details Date Type Department Care Team (Late st Contact Info) Description 09/17/2023 11:00 AM EST Nurse Only Ancillary [facility] [address] [place] [address] [facility] Annual Wellness [facility] [address] [place] [address] Adult Annual Wellness Visit, Subsequent Visit Allergies No known active allergiesdocumented as of [...] mRNA, LNP-s, No Pre serve, 2-Dose Series ([employer]) 06/01/2021,11/23/2020,10/28/2020 COVID-19, LNP-s, No Preserve , Joey-sucrose, Ages 12+ (Pfizer) 12/08/2021 COVID-19, MRNA-LNP, 23-24, P F, 30 MCG/0.3 mL, 12 YRS AND ABOVE, IM (Xcerion-Comirnat) 06/18/2023 Covid-19, Mrna, Lnp-s, Pf, B ivalent, 30 Mcg, IM, 12 yrs and above (Pfizer) 05/22/2022 Pneumococcal Conjugate Vacc, 13 Valent (Prevnar) 08/28/2014 Pneumococcal Polysaccharide PPV23 (Pneumovax) 09/27/1999 RSV Vac., Recomb, Adjuvant, PF,0.5 Ml (Arexvy) 07/18/2023 Season Influenza, Quad, PF, Adjuvanted, 65+ Yrs, [...] Date Recorded PHQ Adult Total Score 0 07/25/2022 Hunger Vital Sign Answer Date Recorded Worried About Running Out of Food in the Last Ye ar Never true 03/09/2020 Ran Out of Food in the Last Year Never true 03/09/2020 Sex and Gender Information Value Date Recorded Sex Assigned at Male 03/09/2020 1:22 PM EDT Gender Identity Male 03/09/2020 1:22 PM EDT Sexual Orientation Straight 03/09/2020 1: 22 PM EDT Job Start Date Occupation Industry Not on file Not on file Not on file documented as of this encounter Last Filed Vital Signs Vital Sign Reading Time Taken Comments Blood Pressure 118/70 09/17/2023 10:39 AM EST Pulse 76 09/17/2023 10:39 AM EST Temperature 35.6 C (96 F) 09/17/2023 10: 39 AM EST Respiratory Rate - - Oxygen Saturation - - Inhaled Oxygen Concentration - - Weight 82.5 kg (181 lb 14.4 oz) 024 10:39 AM EST Height 160 cm (5' 3") 09/17/2023 10:39 AM EST Body Mass Index 32.22 09/17/2023 10:39 AM EST documented in this encounter Patient Instructions * Patient Instructions* Mirlande Lovelace RN - 09/17/2023 10:34 AM EST Hi Mr. Lopez, As your primary care physician, I know that regular visits with my patients who have several chronic conditions can go a long way in helping you stay healthy. Many times, the clinic team and I are in touch with you and/or other care team members between office visits to adjust medications, discuss any changes in your health, and review our care plan to make sure it is still meeting your needs. I am dedicated to helping you take a more active role in your overall care. It is important that there are resources available to you, so I created a personalized plan of care with a Health Calendar for you, which is included on the next page of this letter. Below is a list that summarizes your electronic health record: Health Maintenance Due: Health Maintenance Due Topic Date Due Influenza Vaccine (FLU shot) (1) 04/27/2023 Depression Screening 07/25/2023 Current Medication List: (as of Visit date not found (in office), Visit date not found (telemedicine) ) Current Outpatient Medications Medication Sig Dispense Refill ASPIRIN 81 MG PO TABS Docusate Sodium 50 MG Oral Capsule (Colace) Take by mouth 2 times a day. (Patient not taking: Reported on 05/23/2023) COVID-19 mRNA Vaccine 12 years and above [employer] 30 MCG/0.3 ML IM SUSP Inject into a large muscle as directed 0.3 mL 0 No current facility-administered medications for this visit. Current List of Allergies: (as of Visit date not found (in office), Visit date not found (telemedicine) ) Review of patient's allergies indicates: No Known Allergies Most Recent Lab Results: Results for orders placed or performed in visit on 05/04/23 CLOSTRIDIUM DIFFICILE, PCR Result Value Ref Range Stool Consistency Semi-liquid Clostridium difficile Result (A) Negative Positive for C. difficile toxin B gene DNA by PCR (Amplified Probe). Presumptive negative for C. difficile 027-[id number] strain by PCR (Amplified Probe). RESPIRATORY PATHOGEN PANEL, PCR Result Value Ref Range Adenovirus by PCR Negative Negative Coronavirus 229E by PCR Negative Negative Coronavirus HKU1 by PCR Negative Negative Coronavirus NL63 by PCR Negative Negative Coronavirus OC43 by PCR Negative Negative Coronavirus SARS-CoV-2 by PCR Negative Negative Human Metapneumovirus by PCR Negative Negative Rhinovirus/Enterovirus by PCR Negative Negative Influenza A Virus by PCR Negative Negative Influenza B Virus by PCR Negative Negative Parainfluenza Virus 1 by PCR Negative Negative Parainfluenza Virus 2 by PCR Negative Negative Parainfluenza Virus 3 by PCR Negative Negative Parainfluenza Virus 4 by PCR Negative Negative Respiratory Syncytial Virus by PCR Negative Negative Bordetella pertussis by PCR Negative Negative Chlamydia pneumoniae by PCR Negative Negative Mycoplasma pneumoniae by PCR Negative Negative Bordetella parapertussis by PCR Negative Negative GASTROINTESTINAL PATHOGEN PANEL PCR Result Value Ref Range Campylobacter group by PCR Negative Negative Salmonella species by PCR Negative Negative Shigella species by PCR Negative Negative Vibrio group by PCR Negative Negative Yersinia enterocolitica by PCR Negative Negative Shiga Toxin 1 Gene by PCR Negative Negative Shiga Toxin 2 Gene by PCR Negative Negative Norovirus by PCR Negative Negative Rotavirus by PCR Negative Negative GASTROINTESTINAL PATHOGEN PANEL CULTURE Result Value Ref Range Culture Growth No Aeromonas species or Plesiomonas species isolated. Sincerely, Brett Agustin, DO 09/17/2023 [facility] Calendar (as of Visit date not found (in office), Visit date not found (telemedicine) ) Care needs Care needs Last completed Due next Flu vaccine (recommended) (1) 05/04/2022 04/27/2023 Diphtheria, tetanus & pertussis vaccines (3 - Td or Tdap) 05/04/2022 05/04/2032 As you look over the recommended services, be sure to check with your insurance company to determine what's covered. [employer] is a great tool that helps you review your medical record online, including test results, doctor notes and your health summary. You can also schedule appointments with me and other members of your care team, request prescription refills and ask for advice related to your medical conditions at [email or web address]. Patient Instructions - Fall Prevention (This education is for all patients over 65 regardless of symptoms) Remember to take your current medications as prescribed. In order to prevent falls, you are encouraged to: Exercise Utilize assistive/adaptive devices Avoid multifocal lenses when walking Avoid hazards in home Maintain a regular toileting schedule Any questions please contact our office. Preventing Falls in the Home (This education is for all patients over 65 regardless of symptoms) As you get older, falls are more likely. Thats because your reaction time slows. Your muscles and joints may also get stiffer, making them less flexible. Illness, medications, and vision changes can also affect your balance. A fall could leave you unable to live on your own. To make your home safer, follow these tips: Floors Put nonskid pads under area rugs Remove throw rugs Replace worn floor coverings Tack carpets firmly to each step on carpeted stairs. Put nonskid strips on the edges of uncarpeted stairs Keep floors and stairs free of clutter and cords Arrange furniture so there are clear pathways Clean up any spills right away Bathrooms Install grab bars in the tub or shower Apply nonskid strips or put a nonskid rubber mat in the tub or shower Sit on a bath chair to bathe Use bathmats with nonskid backing Lighting Keep a flashlight in each room Put a nightlight along the pathway between the bedroom and the bathroom Suze Patient Education Copyright 2008 - 2010 [employer] except where otherwise noted documented in this encounter Progress Notes * Mirlande Lovelace RN - 09/17/2023 10:34 AM EST Adult Annual Wellness Visit: Phu Lopez is a 87 year old male who presents for an Adult Annual Wellness Visit. Depression Screening: Did the patient complete the screening questionnaire for Depression? Yes Is the patient's total score for Depression 15 or greater? No, no further intervention needed, unless requested by patient. Did the patient answer positively to the suicide question? No, no further intervention needed, unless requested by patient. In general, compared to other people your age, what would you say that your health is? Excellent Ht Readings from Last 1 Encounters: 09/17/23 1.6 m (5' 3") Wt Readings from Last 1 Encounters: 09/17/23 82.5 kg (181 lb 14.4 oz) Body Mass Index: BMI Greater than 30 Body mass index is 32.22 kg/m. 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 heart failure Eye Problems Grandmother (Paternal) Blind Cancer Sister leukemia age 32 Diabetes None Thyroid Disorder None Stroke None Eye Problems None patient denies HX AMD, glaucoma, retinal detachment Has patient ever had cancer? No Social History Tobacco Use Smoking status: Never Smokeless tobacco: Never Substance Use Topics Alcohol use: Yes Comment: occ social Vaping/E-Cigarette Use Vaping/E-Cigarette Use Never User Vaping/E-Cigarette Substances Vaping/E-Cigarette Devices Tobacco/Alcohol screening completed today? Yes Hospital Care: Admissions (within the last year): Not Applicable ER within 30 days: No Does the patient have an Advance Directives/Living Will? Yes Last Physical Exam: Last physical exam: 04/2023 Does patient see primary provider regularly? Yes Does patient see other providers? Yes, Specialist Patient Care Team updated? Yes Review of patient's allergies indicates: No Known Allergies Immunization History Administered Date(s) Administered COVID-19 mRNA, LNP-s, No Preserve, 2-Dose Series ([employer]) 10/28/2020, 11/23/2020, 06/01/2021 COVID-19, LNP-s, No Preserve, Joey-sucrose, Ages 12+ (Pfizer) 12/08/2021 COVID-19, MRNA-LNP, 23-24, PF, 30 MCG/0.3 mL, 12 YRS AND ABOVE, IM (PFIZER- Comirnaty) 06/18/2023 Covid-19, Mrna, Lnp-s, Pf, Bivalent, 30 Mcg, IM, 12 yrs and above (Pfizer) 05/22/2022 Pneumococcal Conjugate Vacc, 13 Valent (Prevnar) 08/28/2014 Pneumococcal Polysaccharide PPV23 (Pneumovax) 09/27/1999, 05/08/2003 RSV Vac., Recomb, Adjuvant, PF,0.5 Ml (Arexvy) 07/18/2023 Season Influenza, Quad, PF, Adjuvanted, 65+ Yrs, IM (FLUAD) 06/11/2020 Seasonal Influenza, PF, 6 M & above, IM , (FluLaval or Fluzone) 05/17/2018, 05/28/2021 Seasonal Influenza, Quadrivalent Hd (Fluzone Hd) 05/04/2022, 05/23/2023 Seasonal Influenza, Quadrivalent, No Preserve, IM 06/10/2015, 08/31/2016, 05/11/2017 Seasonal Influenza, Split, IIV3, With Preserve, Inj 07/05/2006, 06/05/2007, 06/19/2008, 04/29/2009,06/28/2010, 06/30/2011, 07/01/2012, 07/03/2013, 06/26/2014 TD - Tetanus/Diptheria (ADULT) 05/08/2003 TDAP (age 10 and older)(Boostrix) 07/01/2012, 05/04/2022 Varicella Zoster Vaccine (Adult) 07/03/2013 Zoster Vaccine Recombinant (Shingrix) 12/16/2018, 02/18/2019, 05/29/2019 Current Outpatient Medications Medication Sig Dispense Refill ASPIRIN 81 MG PO TABS Docusate Sodium 50 MG Oral Capsule (Colace) Take by mouth 2 times a day. No current facility-administered medications for this visit. Patient Active Problem List Diagnosis Code ADVANCE DIRECTIVE INFORMATION Impotence of organic origin N52.9 2+ mitral insufficiency I05.9 Family history of colon cancer Z80.0 Gastroesophageal reflux disease K21.9 Obesity, Class I, BMI 30.0-34.9 (see actual BMI) E66.9 Acute diarrhea R19.7 Mild dehydration E86.0 C. difficile colitis A04.72 Hemorrhoids, external without complications K64.4 Rectal pain K62.89 Fall W19.XXXA Medication Compliance: Patient is able to obtain all of his medications? Yes Patient takes medications as prescribed? Yes Patient manages own medications: Yes Patient uses a pill box? No Dental Exam: Yes: Every Year Eye Screening: Yes: Every 6 months Are you having trouble with hearing? Yes Do you use an assistive device to help your hearing? Yes Exercise Screening: daily exercise walking their collie Nutrition Assessment: Eats a balanced diet and Eats three meals a day Pain Screening: Are you having any pain? No Sleep Screening Tool 'STOP': Do you snore? No Do you feel fatigued during the day? No Do you wake up feeling like you haven't slept? No Have you been told you stop breathing at night? No Do you gasp for air or choke while sleeping? No Have you been told you have Sleep Apnea? No Do you have high blood pressure or are on medication(s) to control high blood pressure? No SCORE: If you check YES to two or more questions, make a referral for Obstructive Sleep Apnea Patient and Caregiver Support System: Patient lives with a spouse Means of Transportation: Drives. Concerns identified are: having trouble discerning when the car has stopped. He has turned over driving to his except in rare situations Patient lives in Two Story - How many stairs: approx 25 to the 2nd floor and basement with railings Community Resources: Not Applicable Functional Status and ADL Skills: Has patient ever had an amputation? No Functional Assessment: 100- Normal, no complaints, no evidence of disease Ambulation: Patient ambulates without assistive device. Independent Dressing: Gets clothes and dresses without any assistance: Independent Able to move freely in chair or bed including turning over: Independent Repositioning (bed or chair): Not applicable Transfers: Independent Toileting: Goes to bathroom, uses toilet, arranges clothes and returns without any assistance: Independent Toileting: continent of bladder and continent of bowel Feeding: Self Bathing: Self; walk in shower Requires none assistance with ADLs. Instrumental ADL's: Shopping: Independent Housekeeping: Independent Handling Finances: Independent DME Vendor Name: Not Applicable Fall Risk Assessment: Can the patient demonstrate that he can stand from a sitting position? Yes Has the patient had a fall within the last 6 months? Yes Does the patient have a problem with his gait or balance? Yes Does the patient take 4 or more prescription medicines? No Does the patient use sedatives or narcotics? No Fall Risk Factors Present: History of falls within the past 6 months Yes Cause of fall: Patient tripped and fell. Balance or gait disturbances Older than age 70 Qhu-Sa-nrr-Go Test: Time began at 1030. Patient stood from sitting position and walked approximately 10 feet, returned and sat down. Total time for ynw-hm-iiq-go test was 10 seconds. Leb-Uw-zxq-Go Test completed? Yes Gender Specific Preventative Plan: Health Maintenance Topic Date Due Depression Screening 09/17/2024 DTaP,Tdap,and Td Vaccines (3 - Td or Tdap) 05/04/2032 Influenza Vaccine (FLU shot) Completed Zoster Vaccines Completed Pneumococcal Vaccine: 65+ Years Completed COVID-19 Vaccine Completed Hepatitis B Aged Out MENINGOCOCCAL (MENACTRA/MENVEO) Aged Out GARDASIL-HPV IMMUNIZATION SERIES Aged Out Follow Up/ Referrals/Handouts: No further action needed Routine general medical examination at a health care facility (Primary) Risk and functional assessment AWV completed today Gastroesophageal reflux disease, unspecified whether esophagitis present -continue following with pcp Fall Fall precautions at home discussed. Pt has a Collie who is very active and sometimes gets underfootcausing falls 2+ mitral insufficiency -continue following with pcp Follow Up: Return in 1 year (on 09/17/2024) for 12 month Subsequent Adult Wellness Visit. | For: 12 month Subsequent Adult Wellness Visit | Check-out note: 12 month Subsequent Adult Wellness Visit Would patient like to schedule next AWV visit? Yes Mirlande Lovelace RN AD8 Dementia Screening Interview Person answering questions: patient Remember, "Yes, a change" indicates that there has been a change in the last several years caused by cognitive (thinking and memory) problems 1. Problems with judgement (eg: problems making decisions, bad financial decisions, problems with thinking). No (0) 2. Less interest in hobbies/activities. No (0) 3. Repeats the same things over and over (questions, stories, or statements). No (0) 4. Trouble learning how to use a tool, appliance, or gadget (eg: VCR, computer, microwave, remote control). No (0) 5. Forgets correct month or year. No (0) 6. Trouble handling complicated financial affairs (eg: balancing checkbook, income taxes, paying bills). No (0) 7. Trouble remembering appointments. No (0) 8. Daily problems with thinking and/or memory. No (0) TOTAL AD8: 0 - AD8 Dementia Screening Score The final score is a sum of the number items marked "Yes, A Change". 0 - 1: Normal cognition; 2 or greater: Cognitive impairments is likely to be present - further testing requiredFall Risk Plan of Care Documentation: - Current medications reconciled Patient encouraged to: - Exercise - Provide education materials for Core strengthening - Utilize assistive/adaptive devices - Provide education materials - Avoid multifocal lenses when walking - Avoid hazards in home - Provide education materials - Maintain a regular toileting schedule Mirlande Lovelace, RN 09/17/2023 documented in this encounter Plan of Treatment Upcoming Encounters Date Type Department Care Team (Late st Contact Info) Description 02/06/2024 8:00 AM EDT Office Visit [facility] [address] [place] [address] Brett Agustin, [address] [place] [address] Health Maintenance Due Date Last Done Comments [...] Not on filedocumented as of this encounter Visit Diagnoses Diagnosis Routine general medical examination at a health care facility- Primary Risk and functional assessment Screening for unspecified condition Gastroesophageal reflux disease, unspecified whether esophagitis present Fall Unspecified fall 2+ mitral insufficiency Mitral valve disorders documented in this encounter Care Teams Childcare Worker Relationship Specialty Start Date End Date Brett Agustin DO [address] [place] [address] PCP - General Family Medicine 03/09/20 documented as of this encounter
--- OUTSIDE RECORDS SUMMARY | 2023-10-02 21:56 | External Medical Summary | Summary of Care ---
Author Name Unknown Organization [facility] Address [address] [place] [address] Phone [phone] Care Team Providers Care C 40A Crew Chief Name Role Phone Brett Agustin DO Primary Care Provider Reason for Visit * Reason Onset Date Comments Advice 09/17/2023 Encounter Details Date Type Department Care Team (Late st Contact Info) Description 09/17/2023 Telephone Family Practice [facility] [address] [place] [id number] Brett Agustin DO [address] [place] [address] Advice Allergies No known active allergiesdocumented as of this encounter (statuses as of 09/19/2023) Medications Medication Sig Dispensed Refills Start Date End Date Status ASPIRIN 81 MG PO TABS 0 Act gala Docusate Sodium 50 MG Oral Capsule (Colace)Indications:Cons tipation, unspecified constipation type Take by mouth 2 times a day. 0 Active documented as of this encounter (statuses as of 09/19/2023) Active Problems Problem Noted Date Diagnosed Date [...] as of this encounter (statuses as of 09/19/2023) Resolved Problems Problem Noted Date Diagnosed Date Resolved Date Prediabetes 03/03/2019 06/08/2022 Overview: Per Prediabetes protocol documented as of this encounter (statuses as of 09/19/2023) Immunizations Name Administration Dates Next Due COVID-19 mRNA, LNP-s, No Pre serve, 2-Dose Series ([employer]) 06/01/2021,11/23/2020,10/28/2020 COVID-19, LNP-s, No Preserve , Joey-sucrose, [...] encounter Miscellaneous Notes * Telephone Encounter - Ny Urbano LPN - 09/19/2023 8:10 AM EST Called and spoke with patient. Notified of below. Advised to call the office if symptoms worsen or change. * Telephone Encounter - Brett Agustin DO - 09/17/2023 3:11 PM EST Agree with not driving Likely age related changes to balance And equilibrium * Telephone Encounter - Mirlande Lovelace RN - 09/17/2023 10:55 AM EST Provider to address: pt in for his AWV today. Reports recently he feels when riding in the car thatwhen it stops he feels like it is still moving. He is unsure if it is what he is seeing or if he still feels like his body is moving with the car. He had his last vision check a few months ago and reports it went well. This started after his last vision check. He has turned the majority of the driving over to his . Reason for Call: Advice Contact: In Clinic Contact Type: Advice Outcome: please see above Face to face time spent with Patient (minutes): 10 Total Time including non face to face (minutes): 10 documented in this encounter Plan of Treatment Upcoming Encounters Date Type Department Care Team (Late st Contact Info) Description 02/06/2024 8:00 AM EDT Office Visit Family [facility] [address] [place] [address] Brett Agustin, [address] [place] [address] Health Maintenance Due Date Last Done Comments [...] filedocumented as of this encounter Care Teams C 40A Crew Chief Relationship Specialty Start Date End Date Brett Agustin DO [address] [place] [address] PCP - General Family Medicine 03/09/20 documented as of this encounter
--- OUTSIDE RECORDS SUMMARY | 2023-10-02 21:57 | External Medical Summary ---
Author Name Unknown Address Unknown Organization [id number][place] [place] [address] [place] [id number] Laboratory Report Ordering Provider Test Date Status JOHN HOGAN 05/04/2023 10:56:46 Final Observation Date Value Abnormality Reference (Units) Status Bacteria identified in Specimen by Culture 05/04/2023 10:56:46 No Aeromonas species or Plesiomonas species isolated. Final Test: Gastrointestinal Patho gen Panel Culture
Specimen Source: Stool
Specimen Type: Stool
Specimen Date: 05/04/2023 10:56 AM
Result Date: 05/07/2023 10:43 AM
Result Status: Final result
Resulting Lab: [facility] [place]
[address]
[place] [id number]

CULTURE

No Aeromonas species or Plesiomonas species isolated.

null Performing Location [facility] [place] [address] [place] [id number]
--- OUTSIDE RECORDS SUMMARY | 2023-10-02 21:57 | External Medical Summary | Summary of Care ---
Author Name Unknown Organization [facility] Address [address] [place] [address] Phone [phone] Care Team Providers Care Beamster Name Role Phone Vamsi Brett Luna DO Primary Care Provider Reason for Visit * Reason Comments Acute Patient presents in office today for a re-check regarding his C.DIFF Encounter Details Date Type Department Care Team Description 05/09/2023 Office Visit Family Practice [facility] [address] [facility] [place] [address] Aziza Silvestre CRNP [address] [facility] [address] Bleeding external hemorrhoids*; C. difficile colitis Allergies No known active allergiesdocumented as of this encounter (statuses as of 05/09/2023) Medications Medication Sig Dispensed Refills Start Date End Date Status ASPIRIN 81 MG PO TABS 0 Active ibuprofen (MOTRIN) 800 MG TabletIndications: Wrist sprain, right, initial encounter Take 1 Tab by mouth 3 times a day. with food for pain 30 Tab 1 10/30/2018 Active Docusate Sodium 50 MG Oral Capsule (Colace)Indication s:Constipation, unspecified constipation type Take by mouth 2 times a day. 0 Active Hydrocortisone (Perianal) 2.5 % External Cream (Anusol-HC) Administer into the rectum 3 times a day. 28 g 1 05/09/2023 Active Dificid 200 MG Oral Tablet (Fidaxomicin) Take 1 Tablet by mouth in the morning and 1 Tablet before bedtime. 20 Tablet 0 05/09/2023 Active Dificid 200 MG Oral Tablet (Fidaxomicin) Take 1 Tablet by mouth in the morning and 1 Tablet before bedtime. Do all this for 10 days. 20 Tablet 0 05/04/2023 Discontinue d(Refill) documented as of this encounter (statuses as of 05/09/2023) Active Problems Problem Noted Date C. difficile colitis 05/09/2023 Hemorrhoids, external without complicati ons 05/09/2023 Acute diarrhea 05/04/2023 Mild dehydration 05/04/2023 Gastroesophageal reflux disease 03/09/20 20 Obesity, Class I, BMI 30.0-34.9 (see act ual BMI) 03/09/2020 Family history of colon cancer 2 Overview: father 2+ mitral insufficiency 06/06/2010 ADVANCE DIRECTIVE INFORMATION 06/05/2007 Overview: Information offered-patient declined. 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 documented as of this encounter (statuses as of 05/09/2023) Resolved Problems Problem Noted Date Resolved Date Prediabetes 03/03/2019 06/08/2022 Overview: Per Prediabetes protocol documented as of this encounter (statuses as of 05/09/2023) Immunizations Name Administration Dates Next Due COVID-19 mRNA, LNP-s, No Pre serve, 2-Dose Series (Move Loot) 06/01/2021,11/23/2020,10/28/2020 COVID-19, LNP-s, No Preserve , Joey-sucrose, Ages 12+ (Pfizer) 12/08/2021 Covid-19, Mrna, Lnp-s, Pf, B ivalent, 30 Mcg, IM, 12 yrs and above (Pfizer) 05/22/2022 Pneumococcal Conjugate Vacc, 13 Valent (Prevnar) 08/28/2014 Pneumococcal Polysaccharide PPV23 (Pneumovax) 09/27/1999 Season Influenza, Quad, PF, Adjuvanted, 65+ Yrs, IM (FLUAD) 06/11/2020 Seasonal Influenza, PF, 6 mo ns & Above, IM , (Flulaval) 05/28/2021,05/17/2018 Seasonal Influenza, Quadriva lent Hd (Fluzone Hd) 05/04/2022 Seasonal Influenza, Quadriva lent, No Preserve, IM [...] 0.6 oz pur e alcohol) occ social Food Insecurity Answer Date Recorded Within the past 12 months, y ou worried that your food would run out before you got money to buy more. Never true 03/09/2020 Within the past 12 months, t he food you bought just didn't last and you didn't have money to get more. Never true 03/09/2020 Sex Assigned at Date Recorded Male 03/09/2020 1:22 PM E DT Job Start Date Occupation Industry Not on file Not on file Not on file documented as of this encounter Last Filed Vital Signs Vital Sign Reading Time Taken Comments Blood Pressure 120/70 05/09/2023 3:17 PM EDT Pulse 63 05/09/2023 3:17 PM EDT Temperature - - Respiratory Rate 20 05/09/2023 3:17 PM EDT Oxygen Saturation 96% 05/09/2023 3:17 PM EDT Inhaled Oxygen Concentration - - Weight 77.1 kg (169 lb 14.4 oz) 05/09/2023 3:17 PM EDT Height 160 cm (5' 3") 05/09/2023 3:17 PM EDT Body Mass Index 30.1 05/09/2023 3:17 PM EDT documented in this encounter Progress Notes * YINKA Krause - 05/09/2023 3:30 PM EDT Images from the original note were not included. Follow up Family Medicine Visit CC: Chief Complaint Patient presents with Acute Patient presents in office today for a re-check regarding his C.DIFF History of Present Illness: Phu Lopez is a 87 year old male presenting for follow up of C diff with his today. He is having significantly less diarrhea. He is having 4-5 times of fecal incontience. Diarrhea stopped on 05/05/2023. He has mild gas pain. Denies nausea Reports blood with hemorrhoids. He is having rectal pain and itching. Denies fever or abdominal pain Social History Socioeconomic History Marital status: Spouse name: Not on file Number of children: Not on file Years of education: Not on file Highest education level: Not on file Occupational History Not on file Tobacco Use Smoking status: Never Smokeless tobacco: Never Vaping Use Vaping Use: Never used Substance and Sexual Activity Alcohol use: Yes Comment: occ social Drug use: No Sexual activity: Yes Partners: Female Other Topics Concern Not on file Social History Narrative Not on file Social Determinants of Health Financial Resource Strain: Not on file Food Insecurity: Not on file Transportation Needs: Not on file Physical Activity: Not on file Stress: Not on file Social Connections: Not on file Intimate Partner Violence: Not on file Housing Stability: Not on file PMH: Past Medical History: Diagnosis Date Basal cell [...] REMOVE CATARACT, INSERT LENS PROSTH 1995 [facility], [place] Outpatient Medications Marked as Taking for the 05/09/23 encounter (Office Visit) with YINKA Krause Medication Sig Dificid 200 MG Oral Tablet (Fidaxomicin) Take 1 Tablet by mouth in the morning and 1 Tablet before bedtime. Do all this for 10 days. Docusate Sodium 50 MG Oral Capsule (Colace) Take by mouth 2 times a day. ibuprofen (MOTRIN) 800 MG Tablet Take 1 Tab by mouth 3 times a day. with food for pain ASPIRIN 81 MG PO TABS Review of patient's allergies indicates: No Known Allergies Most Recent Immunizations Administered Date(s) Administered COVID-19 mRNA, LNP-s, No Preserve, 2-Dose Series (Move [employer]oot) 06/01/2021 COVID-19, LNP-s, No Preserve, Joey-sucrose, Ages 12+ (Move Loot) 12/08/2021 Covid-19, Mrna, Lnp-s, Pf, Bivalent, 30 Mcg, IM, 12 yrs and above (Pfizer) 05/22/2022 Pneumococcal Conjugate Vacc, 13 Valent (Prevnar) 08/28/2014 Pneumococcal Polysaccharide PPV23 (Pneumovax) 05/08/2003 Season Influenza, Quad, PF, Adjuvanted, 65+ Yrs, IM (FLUAD) 06/11/2020 Seasonal Influenza, PF, 6 mons & Above, IM , (Flulaval) 05/28/2021 Seasonal Influenza, Quadrivalent Hd (Fluzone Hd) 05/04/2022 Seasonal Influenza, Quadrivalent, No Preserve, IM 05/11/2017 Seasonal Influenza, Split, IIV3, With Preserve, Inj 06/26/2014 TD - Tetanus/Diptheria (ADULT) 05/08/2003 TDAP (age 10 and older)(Boostrix) 05/04/2022 Varicella Zoster Vaccine (Adult) 07/03/2013 Zoster Vaccine Recombinant (Shingrix) 05/29/2019 Review of Systems: Review of Systems Constitutional: Positive for fatigue. Negative for chills, diaphoresis and fever. Respiratory: Negative for shortness of breath. Cardiovascular: Negative for chest pain. Gastrointestinal: Positive for anal bleeding, diarrhea and rectal pain. Negative for abdominal pain. Physical Exam: BP 120/70 | Pulse 63 | Resp 20 | Ht 1.6 m (5' 3") | Wt 77.1 kg (169 lb 14.4 oz) | SpO2 96% | BMI 30.10 kg/m | BSA 1.85 m Physical Exam Exam conducted with a glass furnace operator present. HENT: Head: Normocephalic. Cardiovascular: Rate and Rhythm: Normal rate and regular rhythm. Pulmonary: Effort: Pulmonary effort is normal. Breath sounds: Normal breath sounds. Abdominal: General: Bowel sounds are normal. Palpations: Abdomen is soft. Tenderness: There is no abdominal tenderness. Genitourinary: Rectum: External hemorrhoid present. Comments: Erythematous, hemorrhoid- bleeding , tender. Cleansed with warm water. Applied a and d ointment with gauze Neurological: Mental Status: He is alert. Assessment and Plan: 1. Bleeding external hemorrhoids Secondary to excoriation from frequent c diff diarrhea Cleansed with warm water A and D ointment applied Recommend sitz bath tid Add topical hydrocortisone cream with A and D. 2. C. difficile colitis Improving diarrhea Still with some fecal incontinence Continue dificid for 10 days. I have advised the patient to call our office incase of any worsening or new symptoms. I spent a total of 40-54 minutes (exact time 40 mins) on the date of service in preparation, delivery, and documentation of the care provided to Phu Lopez excluding any time spent in the performance of separately billed services. Linda, TERRENCE, YINKA [facility] Medicine documented in this encounter Nursing Notes * NESTOR Lobo - 05/09/2023 3:16 PM EDT The patient has been properly identified by confirmation of name and date of . Chief Complaint Patient presents with Acute Patient presents in office today for a re-check regarding his C.DIFF documented in this encounter Plan of Treatment Upcoming Encounters Date Type Specialty Care Team Description 05/23/2023 Office Visit Family Aziza Prado CRNP [address] [place] [address] 02/06/2024 Office Visit Family Brett Hatfield DO [address] [place] [address] Health Maintenance Due Date Last Done Comments Influenza Vaccine (FLU shot) (#1) 2023 05/04/2022, 05/28/2021, 06/11/2020, Additional history exists Depression Screening 07/25/2023 07/25/2022 DTaP,Tdap,and Td Vaccines (3 - Td or Tdap) 05/04/2032 05/04/2022, 07/01/2012, 05/08/2003 Pneumococcal Vaccine: 65+ Years Completed 08/28/2014, 05/08/2003, 09/27/1999 Zoster Vaccines Completed 05/29/2019, 01/26, 12/16/2018, Additional history exists COVID-19 Vaccine Completed 05/22/2022, , 06/01/2021, Additional history exists GARDASIL-HPV IMMUNIZATION SERIES Aged [...] as of this encounter Visit Diagnoses Diagnosis Bleeding external hemorrhoids- Primary External hemorrhoids with other complication C. difficile colitis Intestinal infection due to clostridium difficile documented in this encounter Additional Health Concerns Infection Onset Date Last Indicated Resolved Time C. difficile 05/04/2023 05/04/2023 documented as of this encounter Care Teams Beamster Relationship Specialty Start Date End Date Brett Agustin DO [address] [place] [address] PCP - General Family Medicine 03/09/20 documented as of this encounter
--- OUTSIDE RECORDS SUMMARY | 2023-10-02 21:57 | External Medical Summary | Summary of Care ---
Author Name Unknown Organization [facility] Address [address] [place] [address] Phone [phone] Care Team Providers Care Business Education Teacher Name Role Phone Vamsi Brett Luna DO Primary Care Provider Reason for Visit * Reason Onset Date Comments Advice 05/04/2023 Update 05/04/2023 Encounter Details Date Type Department Care Team Description 05/04/2023 Telephone Family Practice [facility] [address] [place] [address] Aziza Silvestre CRNP [address] [place] [address] Advice; Update Allergies No known active allergiesdocumented as of this encounter (statuses as of 05/08/2023) Medications Medication Sig Dispensed Refills Start Date End Date Status ASPIRIN 81 MG PO TABS daily 0 Active ibuprofen (MOTRIN) 800 MG TabletIndications:W rist sprain, right, initial encounter Take 1 Tab by mouth 3 times a day. with food for pain 30 Tab 1 10/30/2018 Active Additional Information Patient not taking.Reported on 05/04/2023 Docusate Sodium 50 MG Oral Capsule (Colace)Indications :Constipation, unspecified constipation type Take by mouth 2 times a day . 0 Active Dificid 200 MG Oral Tablet (Fidaxomicin) Take 1 Tablet by mouth in the morning and 1 Tablet before bedtime. Do all this for 10 days. 20 Tablet 0 05/04/2023 05/14/2023 Active documented as of this encounter (statuses as of 05/08/2023) Active Problems Problem Noted Date Acute diarrhea 05/04/2023 Mild dehydration 05/04/2023 Gastroesophageal reflux disease 03/09/20 20 Obesity, Class I, BMI 30.0-34.9 (see act ual BMI) 03/09/2020 Family history of colon cancer 2 Overview: father 2+ mitral insufficiency 06/06/2010 ADVANCE DIRECTIVE INFORMATION 06/05/2007 Overview: Information offered-patient declined. 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 documented as of this encounter (statuses as of 05/08/2023) Resolved Problems Problem Noted Date Resolved Date Prediabetes 03/03/2019 06/08/2022 Overview: Per Prediabetes protocol documented as of this encounter (statuses as of 05/08/2023) Immunizations Name Administration Dates Next Due COVID-19 mRNA, LNP-s, No Pre serve, 2-Dose Series (Chrysallis) 06/01/2021,11/23/2020,10/28/2020 COVID-19, LNP-s, No Preserve , Joey-sucrose, Ages 12+ (Pfizer) 12/08/2021 Covid-19, Mrna, Lnp-s, Pf, B ivalent, 30 Mcg, IM, 12 yrs and above (Pfizer) 05/22/2022 Pneumococcal Conjugate Vacc, 13 Valent (Prevnar) 08/28/2014 Pneumococcal Polysaccharide PPV23 (Pneumovax) 05/08/2003,09/27/1999 Season Influenza, Quad, PF, Adjuvanted, 65+ Yrs, IM (FLUAD) 06/11/2020 Seasonal Influenza, PF, 6 mo ns & Above, IM , (Flulaval) 05/28/2021,05/17/2018 Seasonal Influenza, Quadriva lent Hd (Fluzone Hd) 05/04/2022 Seasonal Influenza, Quadriva lent, No Preserve, IM 05/11/2017,08/31/2016,06/10/2015 Seasonal Influenza, Split, I IV3, With Preserve, Inj 06/26/2014,07/03/2013,07/01/2012,06/30,06/28/2010,04/29/2009,06/19/2008 ,06/05/2007,07/05/2006 TD - Tetanus/Diptheria (ADULT) 05/08/2003 TDAP (age 10 and older)(Boostrix) 05/04/2022,12/2011 Varicella [...] Notes * Telephone Encounter - Brittny Agustin - 05/08/2023 10:17 AM EDT Appt scheduled with * Telephone Encounter - YINKA Krause - 05/08/2023 10:12 AM EDT Schedule in person visit- no phone appts available TERRENCE Mckeon, YINKA [facility] * Telephone Encounter - MARANDA Arriaza - 05/08/2023 9:51 AM EDT Patients is calling saying her is still having some . She says his diarrhea is gettingbetter but he still is having issues with mucus, She wanted him to be seen today and declined an opening for tomorrow. She wanted a phone appt which I explained we no longer do. She got angry she could have a phone appt today. Please advise * Telephone Encounter - NESTOR Lobo ASSIST - 05/04/2023 2:19 PM EDT Patients spouse made aware * Telephone Encounter - YINKA Krause - 05/04/2023 2:03 PM EDT Please notify patient and his - he is positive for C diff. Recommend start of dificid to treat. Viral testing was negative for covid or flu. Take with food. Follow instructions we discussed earlier. Linda, TERRENCE, YINKA [facility] documented in this encounter Plan of Treatment Upcoming Encounters Date Type Specialty Care Team Description 05/09/2023 Office Visit Family Aziza Prado CRNP [address] [place] [address] 02/06/2024 Office Visit Family Medicine Brett Agustin, [address] [place] [address] Health Maintenance Due Date Last Done Comments [...] Not on filedocumented as of this encounter Additional Health Concerns Infection Onset Date Last Indicated Resolved Time C. difficile Rule-Out 05/04/2023 05/04/20232022 1:38 PM EDT Gastrointestinal Rule-Out 05/04/2023 05/04/2023 9:52 AM EDT Respiratory Rule-Out 05/04/2023 05/04/2023 023 1:41 PM EDT C. difficile 05/04/2023 05/04/2023 documented as of this encounter Care Teams Business Education Teacher Relationship Specialty Start Date End Date Brett Agustin DO [address] [place] [address] PCP - General Family Medicine 03/09/20 documented as of this encounter
--- OUTSIDE RECORDS SUMMARY | 2023-10-02 21:57 | External Medical Summary | Summary of Care ---
Author Name Unknown Organization [facility] Address [address] [place] [address] Phone [phone] Care Team Providers Care Mailroom Clerk Name Role Phone Agustin Brett Luna DO Primary Care Provider Reason for Visit * Reason Comments Outpatient Testing Encounter Details Date Type Department Care Team Description 05/04/2023 Laboratory Laboratory, [facility] [address] [place] [address] [facility] [address] [place] [address] Arrived Allergies No known active allergiesdocumented as of this encounter (statuses as of 05/04/2023) Medications Medication Sig Dispensed Refills Start Date End Date Status ASPIRIN 81 MG PO TABS daily 0 Act gala ibuprofen (MOTRIN) 800 MG TabletIndications:Wri st sprain, right, initial encounter Take 1 Tab by mouth 3 times a day. with food for pain 30 Tab 1 10/30/2018 Active Additional Information Patient not taking.Reported on 05/04/2023 Docusate Sodium 50 MG Oral Capsule (Colace)Indications:C onstipation, unspecified constipation type Take by mouth 2 times a day . 0 Active documented as of this encounter (statuses as of 05/04/2023) Active Problems Problem Noted Date Acute diarrhea 05/04/2023 Mild dehydration 05/04/2023 Gastroesophageal reflux disease 03/09/20 20 Obesity, Class I, BMI 30.0-34.9 (see act ual BMI) 03/09/2020 Family history of colon cancer 2 Overview: father 2+ mitral insufficiency 06/06/2010 ADVANCE DIRECTIVE INFORMATION 06/05/2007 Overview: Information offered-patient declined. 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 documented as of this encounter (statuses as of 05/04/2023) Resolved Problems Problem Noted Date Resolved Date Prediabetes 03/03/2019 06/08/2022 Overview: Per Prediabetes protocol documented as of this encounter (statuses as of 05/04/2023) Immunizations Name Administration Dates Next Due COVID-19 mRNA, LNP-s, No Pre serve, 2-Dose Series (Pfizer) 06/01/2021,11/23/2020,10/28/2020 COVID-19, LNP-s, No Preserve , Joey-sucrose, [...] on file documented as of this encounter Plan of Treatment Upcoming Encounters Date Type Specialty Care Team Description 02/06/2024 Office Visit Family Medicine Brett Agustin, [address] [place] [address] Health Maintenance Due Date Last Done Comments [...] Indicated Resolved Time C. difficile Rule-Out 05/04/2023 05/04/2023 Gastrointestinal Rule-Out 05/04/2023 05/04/2023 Respiratory Rule-Out 05/04/2023 05/04/2023 documented as of this encounter Care Teams Mailroom Clerk Relationship Specialty Start Date End Date Brett Agustin DO [address] [place] [address] PCP - General Family Medicine 03/09/20 documented as of this encounter
--- OUTSIDE RECORDS SUMMARY | 2023-10-02 21:57 | External Medical Summary ---
Author Name Unknown Address Unknown Organization [id number]:[facility]ORY [facility] [place] - [address] [facility] [address] Laboratory Report Ordering Provider Test Date Status JOHN HOGAN 05/04/2023 10:56:46 Final Observation Date Value Abnormality Reference (Units ) Status Campylobacter sp DNA.diarrheagenic [Presence] in Stool by JADON with probe detection 05/04/2023 10:56:46 Negative Negative Final Salmonella sp rpoD gene [Presence] in Stool by JADON with probe detection 05/04/2023 10:56:46 Negative Negative Final Shigella species+EIEC invasion plasmid antigen H ipaH gene [Presence] in Stool by JADON with probe detection 05/04/2023 10:56:46 Negative Negative Final Vibrio sp DNA [Identifier] in Specimen by JADON with probe detection 05/04/2023 10:56:46 Negative Negative Final Yersinia enterocolitica recN gene [Presence] in Stool by JADON with probe detection 05/04/2023 10:56:46 Negative Negative Final Escherichia coli Stx1 toxin stx1 gene [Presence] in Stool by JADON with probe detection 05/04/2023 10:56:46 Negative Negative Final Escherichia coli Stx2 toxin stx2 gene [Presence] in Stool by JADON with probe detection 05/04/2023 10:56:46 Negative Negative Final Norovirus genogroups I and II RNA panel - Stool by JADON with probe detection 05/04/2023 10:56:46 Negative Negative Final Rotavirus A RNA [Presence] in Stool by JADON with probe detection 05/04/2023 10:56:46 Negative Negative Final Performing Location [facility] [place] - [address] [facility] [address]
--- OUTSIDE RECORDS SUMMARY | 2023-10-02 21:57 | External Medical Summary | Summary of Care ---
Author Name Unknown Organization [facility] Address [address] [place] [address] Phone [phone] Care Team Providers Care Hydrate Thickener Operator Name Role Phone Vamsi Brett Luna DO Primary Care Provider Reason for Visit * Reason Onset Date Comments Advice 05/04/2023 Update 05/04/2023 Encounter Details Date Type Department Care Team Description 05/04/2023 Telephone Family Practice [facility] [address] [place] [address] Aziza Silvestre CRNP [address] [place] [address] Advice; Update Allergies No known active allergiesdocumented [...] mRNA, LNP-s, No Pre serve, 2-Dose Series ([employer] [facility]) 06/01/2021,11/23/2020,10/28/2020 COVID-19, LNP-s, No Preserve , Joey-sucrose, [...] no phone appts available TERRENCE Mckeon, YINKA [facility] * Telephone Encounter - MARANDA Arriaza - [...] instructions we discussed earlier. Linda, TERRENCE, YINKA [facility] documented in this encounter Plan of Treatment Upcoming Encounters Date Type Specialty Care Team Description 05/09/2023 Office Visit Family Aziza Prado CRNP [address] [place] [address] 02/06/2024 Office Visit Family Medicine Brett Agustin, [address] [place] [address] Health Maintenance Due Date Last Done Comments [...] documented as of this encounter Care Teams Hydrate Thickener Operator Relationship Specialty Start Date End Date Brett Agustin DO [address] [place] [address] PCP - General Family Medicine 03/09/20 documented as of this encounter
--- OUTSIDE RECORDS SUMMARY | 2023-10-02 21:57 | External Medical Summary | Summary of Care ---
Author Name Unknown Organization [facility] Address [address] [place] [address] Phone [phone] Care Team Providers Care Real Estate Job Titles Name Role Phone Vamsi Brett Luna DO Primary Care Provider Reason for Visit * Reason Comments Follow Up Patient presents in office today for a 2 week follow-up visit -- feels a lot better. Encounter Details Date Type Department Care Team Description 05/23/2023 Office Visit Family Practice [facility] [address] [place] [address] Aziza Silvestre CRNP [address] [place] [address] Fall, initial encounter*; C. difficile colitis; Acute pain of right knee; Hemorrhoids, external without complications; Need for influenza vaccination Allergies No known active allergiesdocumented as of this encounter (statuses as of 05/23/2023) Medications Medication Sig Dispensed Refills Start Date End Date Status ASPIRIN 81 MG PO TABS 0 Active Docusate Sodium 50 MG Oral Capsule (Colace)Indication s:Constipation, unspecified constipation type Take by mouth 2 times a day. 0 Active ibuprofen (MOTRIN) 800 MG TabletIndications: Wrist sprain, right, initial encounter Take 1 Tab by mouth 3 times a day. with food for pain 30 Tab 1 10/30/2018 3 Discontinued Hydrocortisone (Perianal) 2.5 % External Cream (Anusol-HC) Administer into the rectum 3 times a day. 28 g 1 05/09/2023 3 Discontinued Dificid 200 MG Oral Tablet (Fidaxomicin) Take 1 Tablet by mouth in the morning and 1 Tablet before bedtime. 20 Tablet 0 05/09/2023 3 Discontinued documented as of this encounter (statuses as of 05/23/2023) Active Problems Problem Noted Date Rectal pain 05/23/2023 Fall 05/23/2023 C. [...] as of this encounter (statuses as of 05/23/2023) Resolved Problems Problem Noted Date Resolved Date Prediabetes 03/03/2019 06/08/2022 Overview: Per Prediabetes protocol documented as of this encounter (statuses as of 05/23/2023) Immunizations Name Administration Dates Next Due COVID-19 mRNA, LNP-s, No Pre serve, 2-Dose Series ([employer]) 06/01/2021,11/23/2020,10/28/2020 COVID-19, LNP-s, No Preserve , Joey-sucrose, [...] Sign Reading Time Taken Comments Blood Pressure 120/72 05/23/2023 2:48 PM EDT Pulse 76 05/23/2023 2:48 PM EDT Temperature - - Respiratory Rate 18 05/23/2023 2:48 PM EDT Oxygen Saturation 98% 05/23/2023 2:48 PM EDT Inhaled Oxygen Concentration - - Weight 76.9 kg (169 lb 9.6 oz) 05/23/2023 2:48 P M EDT Height 160 cm (5' 3") 05/23/2023 2:48 PM EDT Body Mass Index 30.04 05/23/2023 2:48 PM EDT documented in this encounter Progress Notes * Aziza Odalis Rhed, OFFICE MANAGER EXECUTIVE ASSISTANT - 05/23/2023 2:58 PM EDT Follow up Family Medicine Visit CC: Chief Complaint Patient presents with Follow Up Patient presents in office today for a 2 week follow-up visit -- feels a lot better. History of Present Illness: Phu Lopez is a 87 year old male presenting today for follow up c diff colitis. He no longer has diarrhea and abdominal pain. Denies fever. Rectal pain is improved. Denies new rectal bleeding. Fell on loose carpet on 05/12/2023. Impact to right upper leg. Feels ok now. Initially painful in knee but now resolved. Social History Socioeconomic History Marital status: Spouse [...] REMOVE CATARACT, INSERT LENS PROSTH 1995 [place], [place] Outpatient Medications Marked as Taking for the 05/23/23 encounter (Office Visit) with YINKA Krause Medication Sig Hydrocortisone (Perianal) 2.5 % External Cream (Anusol-HC) Administer into the rectum 3 times a day. ibuprofen (MOTRIN) 800 MG Tablet Take 1 Tab by mouth 3 times a day. with food for pain ASPIRIN 81 MG PO TABS Review of patient's allergies indicates: No Known Allergies Most Recent Immunizations Administered Date(s) Administered COVID-19 mRNA, LNP-s, No Preserve, 2-Dose Series (Pfizer) 06/01/2021 COVID-19, LNP-s, No Preserve, Joey-sucrose, Ages 12+ (Pfizer) 12/08/2021 Covid-19, Mrna, Lnp-s, Pf, Bivalent, 30 [...] Review of Systems: Review of Systems Constitutional: Negative for fatigue and fever. Respiratory: Negative for shortness of breath. Cardiovascular: Negative for chest pain. Gastrointestinal: Positive for rectal pain. Negative for abdominal pain, blood in stool, diarrhea, nausea and vomiting. Resolved rectal pain and hemorrhoid Musculoskeletal: Positive for arthralgias. Neurological: Negative for dizziness. Psychiatric/Behavioral: Negative for sleep disturbance. Physical Exam: BP 120/72 | Pulse 76 | Resp 18 | Ht 1.6 m (5' 3") | Wt 76.9 kg (169 lb 9.6 oz) | SpO2 98% | BMI 30.04 kg/m | BSA 1.85 m Physical Exam HENT: Head: Normocephalic. Cardiovascular: Rate and Rhythm: Normal rate. Pulmonary: Effort: Pulmonary effort is normal. Breath sounds: Normal breath sounds. Musculoskeletal: Right knee: No swelling or erythema. Normal range of motion. Neurological: General: No focal deficit present. Mental Status: He is alert and oriented to person, place, and time. Psychiatric: Mood and Affect: Mood normal. Behavior: Behavior normal. Thought Content: Thought content normal. Judgment: Judgment normal. Assessment and Plan: 1. Fall, initial encounter S/p fall where he slid off of rug on stairs Hit right upper leg but feels ok now 2. C. difficile colitis Resolved S/p dificid 3. Acute pain of right knee S/p fall Almost resolved Hold on x ray for now 4. Hemorrhoids, external without complications resolving 5. Need for influenza vaccination - INFLUENZA VACC, QUAD, HIGH DOSE (FLUZONE HD) I have advised the patient to call our office incase of any worsening or new symptoms. I spent a total of 40 min on the date of service in preparation, delivery, and documentation of thecare provided to Phu Lopez excluding any time spent in the performance of separately billed services. TERRENCE Mckeon, YINKA [facility] documented in this encounter Nursing Notes * NESTOR Lobo - 05/23/2023 2:47 PM EDT The patient has been properly identified by confirmation of name and date of . Chief Complaint Patient presents with Follow Up Patient presents in office today for a 2 week follow-up visit -- feels a lot better. documented in this encounter Plan of Treatment Upcoming Encounters Date Type Specialty Care Team Description 02/06/2024 Office Visit Family Medicine Brett Agustin DO [address] [place] [address] Health Maintenance Due Date Last Done Comments [...] as of this encounter Visit Diagnoses Diagnosis Fall, initial encounter- Primary C. difficile colitis Intestinal infection due to clostridium difficile Acute pain of right knee Hemorrhoids, external without complications External hemorrhoids without mention of complication Need for influenza vaccination Need for prophylactic vaccination and inoculation against influenza documented in this encounter Additional Health Concerns Infection Onset Date Last Indicated Resolved Time C. difficile 05/04/2023 05/04/2023 documented as of this encounter Care Teams Real Estate Job Titles Relationship Specialty Start Date End Date Brett Agustin, [address] [place] [address] PCP - General Family Medicine 03/09/20 documented as of this encounter
--- OUTSIDE RECORDS SUMMARY | 2023-10-02 21:57 | External Medical Summary | Summary of Care ---
Author Name Unknown Organization [facility] Address [address] [place] [address] Phone [phone] Care Team Providers Care Station Repairer Name Role Phone Vamsi Brett Adhikarijatinder DO Primary Care Provider Reason for Visit * Reason Comments Acute Encounter Details Date Type Department Care Team Description 04/07/2023 Office Visit Family Practice [facility] [address] [place] [address] Ty Leone MD [address] [place] [address] Pain in gums*; Swelling of gums Allergies No known active allergiesdocumented as of this encounter (statuses as of 04/07/2023) Medications Medication Sig Dispensed Refills Start Date End Date Status ASPIRIN 81 MG PO TABS daily 0 Active ibuprofen (MOTRIN) 800 MG TabletIndications:Wr ist sprain, right, initial encounter Take 1 Tab by mouth 3 times a day. with food for pain 30 Tab 1 10/30/2018 Active Docusate Sodium 50 MG Oral Capsule (Colace)Indications: Constipation, unspecified constipation type Take by mouth 2 times a day . 0 Active Clindamycin HCl 300 MG Oral Capsule Take 1 Capsule by mouth in the morning and 1 Capsule in the evening. Do all this for 7 days. 14 Capsule 0 04/07/2023 04/14/2023 Active documented as of this encounter (statuses as of 04/07/2023) Active Problems Problem Noted Date Gastroesophageal reflux disease 03/09/20 20 Obesity, Class I, BMI 30.0-34.9 (see act ual BMI) 03/09/2020 Family history of colon cancer 2 Overview: father 2+ mitral insufficiency 06/06/2010 ADVANCE DIRECTIVE INFORMATION 06/05/2007 Overview: Information offered-patient declined. 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 documented as of this encounter (statuses as of 04/07/2023) Resolved Problems Problem Noted Date Resolved Date Prediabetes 03/03/2019 06/08/2022 Overview: Per Prediabetes protocol documented as of this encounter (statuses as of 04/07/2023) Immunizations Name Administration Dates Next Due COVID-19 mRNA, LNP-s, No Pre serve, 2-Dose Series ([employer]) 06/01/2021,11/23/2020,10/28/2020 COVID-19, LNP-s, No Preserve , Joey-sucrose, Ages 12+ (Pfizer) 12/08/2021 Covid-19, Mrna, Lnp-s, Pf, B ivalent, 30 Mcg, IM, 12 yrs and above (Pfizer) 05/22/2022 Pneumococcal Conjugate Vacc, 13 Valent (Prevnar) 08/28/2014 Pneumococcal Polysaccharide PPV23 (Pneumovax) 09/27/1999 Seasonal Influenza, Quadriva lent Hd (Fluzone Hd) 05/04/2022 Seasonal Influenza, Quadriva lent, No Preserve, 6 Mons & Above, IM 05/28/2021,05/17/2018 Seasonal Influenza, Quadriva lent, No Preserve, Adjuvanted, 65+ Yrs, IM 06/11/2020 Seasonal Influenza, Quadriva lent, No Preserve, IM 05/11/2017,08/31/2016,06/10/2015 Seasonal Influenza, Split, I IV3, With Preserve, Inj 06/26/2014,07/03/2013,07/01/2012,06/30,06/28/2010,04/29/2009,06/19/2008 ,06/05/2007,07/05/2006 TDAP (age 10 and older)(Boostrix) 05/04/2022,12/2011 Varicella Zoster Vaccine (Adult) 07/03/2013 Zoster Vaccine Recombinant (Shingrix) 05/29/2019 ,02/18/2019,12/16/2018 documented as of this encounter Social History Tobacco Use Types Packs/Day Years Used Date Smoking Tobacco: Never Smokeless Tobacco: Never Tobacco Cessation:Counseling Given: Yes Alcohol Use Standard Drinks/Week Comments Yes 0 [...] Sign Reading Time Taken Comments Blood Pressure 118/60 04/07/2023 11:08 AM EDT Pulse 88 04/07/2023 11:08 AM EDT Temperature 36.4 C (97.5 F) 04/07/2023 1 1:08 AM EDT Respiratory Rate 14 04/07/2023 11:0 8 AM EDT Oxygen Saturation 96% 04/07/2023 11: 08 AM EDT Inhaled Oxygen Concentration - - Weight 78.4 kg (172 lb 12.8 oz) 023 11:08 AM EDT Height 160 cm (5' 3") 04/07/2023 11:08 AM EDT Body Mass Index 30.61 04/07/2023 11:08 AM EDT documented in this encounter Progress Notes * Ty Leone MD - 04/07/2023 11:37 AM EDT Images from the original note were not included. Subjective Phu Lopez is a 87 year old male. Chief Complaint Patient presents with Acute HPI: here for acute lower gum pain swelling , which started on jabari, until fri Showing small infection lesion on front lower gum No teeth pain and currently swelling pain is better too Had 6 mo routine dental check up a few month ago No known DM Normal kidney fx PMH: Patient Active Problem List Diagnosis Code ADVANCE DIRECTIVE INFORMATION Impotence of organic origin N52.9 2+ mitral insufficiency I05.9 Family history of colon cancer Z80.0 Gastroesophageal reflux disease K21.9 Obesity, Class I, BMI 30.0-34.9 (see actual BMI) E66.9 Current Outpatient Medications Medication Sig Dispense Refill ASPIRIN 81 MG PO TABS daily ibuprofen (MOTRIN) 800 MG Tablet Take 1 Tab by mouth 3 times a day. with food for pain 30 Tab 1 Docusate Sodium 50 MG Oral Capsule (Colace) Take by mouth 2 times a day . Clindamycin HCl 300 MG Oral Capsule Take 1 Capsule by mouth in the morning and 1 Capsule in theevening. Do all this for 7 days. 14 Capsule 0 No current facility-administered medications for this visit. Past Medical History: Diagnosis Date Basal cell [...] Y/O REMOVE CATARACT, INSERT LENS PROSTH 1996 , [place] Review of patient's allergies indicates: No Known Allergies Family History Problem Relation Age of Onset Cancer Mother liver Heart Disorder Father ? heart failure Eye Problems Grandmother (Paternal) Blind Cancer Sister leukemia age 32 Diabetes None Thyroid Disorder None Stroke None Eye Problems None patient denies HX AMD, glaucoma, retinal detachment Family Status Relation Status Mo (Not Specified) Fa (Not Specified) PGMA (Not Specified) Sis (Not Specified) NONE (Not Specified) NONE (Not Specified) NONE (Not Specified) NONE (Not Specified) Social History Socioeconomic History Marital status: Spouse [...] on file Housing Stability: Not on file Review of Systems Constitutional: Negative for activity change, appetite change, chills, diaphoresis, fatigue, fever and unexpected weight change. HENT: Positive for dental problem (lower gum pain swelling ). Negative for sore throat, trouble swallowing and voice change. Respiratory: Negative. Cardiovascular: Negative. Psychiatric/Behavioral: Negative for agitation and behavioral problems. Objective BP 118/60 | Pulse 88 | Temp 36.4 C (97.5 F) (Tympanic) | Resp 14 | Ht 1.6 m (5' 3") | Wt 78.4 kg (172 lb 12.8 oz) | SpO2 96% | BMI 30.61 kg/m | BSA 1.87 m Physical Exam Constitutional: General: He is not in acute distress. Appearance: Normal appearance. He is not ill-appearing, toxic-appearing or diaphoretic. HENT: Head: Normocephalic and atraumatic. Mouth/Throat: Neurological: General: No focal deficit present. Mental Status: He is alert and oriented to person, place, and time. ASSESSMENT/PLAN: Pain in gums (Primary) Swelling of gums Other orders - Clindamycin HCl 300 MG Oral Capsule; Take 1 Capsule by mouth in the morning and 1 Capsule in the evening. Do all this for 7 days. Clindamycin 7 days And f/u with dentist Ty Leone MD documented in this encounter Nursing Notes * Evette Rodriguez LPN - 04/07/2023 11:07 AM EDT States pm into Sunday he has had some swelling in his lower lip Took advil on or Sunday? documented in this encounter Plan of Treatment Upcoming Encounters Date Type Specialty Care Team Description 02/06/2024 Office Visit Family Medicine Brett Agustin DO [address] [place] [address] Health Maintenance Due Date Last Done Comments Influenza Vaccine (FLU shot) (#1) 2023 05/04/2022, 05/28/2021, 06/11/2020, Additional history exists Depression Screening, Annual for Pts 12 and Over 07/25/2023 07/25/2022 DTaP,Tdap,and Td Vaccines (3 - [...] as of this encounter Visit Diagnoses Diagnosis Pain in gums- Primary Unspecified gingival and periodontal disease Swelling of gums Swelling, mass, or lump in head and neck documented in this encounter Care Teams Station Repairer Relationship Specialty Start Date End Date Brett Agustin DO [address] [place] [address] PCP - General Family Medicine 03/09/20 documented as of this encounter
--- OUTSIDE RECORDS SUMMARY | 2023-10-02 21:57 | External Medical Summary ---
Author Name Unknown Address Unknown Organization [id number]:[facility] [place] [address] [facility] [address] Laboratory Report Ordering Provider Test Date Status JOHN HOGAN 05/04/2023 08:47:07 Final Observation Date Value Abnormality Reference (Units ) Status Adenovirus DNA [Presence] in Nasopharynx by JADON with non-probe detection 05/04/2023 08:47:07 Negative Negative Final Human coronavirus 229E RNA [Presence] in Nasopharynx by JADON with non-probe detection 05/04/2023 08:47:07 Negative Negative Final Human coronavirus HKU1 RNA [Presence] in Nasopharynx by JADON with non-probe detection 05/04/2023 08:47:07 Negative Negative Final Human coronavirus NL63 RNA [Presence] in Nasopharynx by JADON with non-probe detection 05/04/2023 08:47:07 Negative Negative Final Human coronavirus OC43 RNA [Presence] in Nasopharynx by JADON with non-probe detection 05/04/2023 08:47:07 Negative Negative Final SARS-CoV-2 (COVID-19) RNA [Presence] in Nasopharynx by JADON with non-probe detection 05/04/2023 08:47:07 Negative Negative Final Human metapneumovirus RNA [Presence] in Nasopharynx by JADON with non-probe detection 05/04/2023 08:47:07 Negative Negative Final Rhinovirus+Enterovirus RNA [Presence] in Nasopharynx by JADON with non-probe detection 05/04/2023 08:47:07 Negative Negative Final Influenza virus A RNA [Presence] in Nasopharynx by JADON with non-probe detection 05/04/2023 08:47:07 Negative Negative Final Influenza virus B RNA [Presence] in Nasopharynx by JADON with non-probe detection 05/04/2023 08:47:07 Negative Negative Final Parainfluenza virus 1 RNA [Presence] in Nasopharynx by JADON with non-probe detection 05/04/2023 08:47:07 Negative Negative Final Parainfluenza virus 2 RNA [Presence] in Nasopharynx by JADON with non-probe detection 05/04/2023 08:47:07 Negative Negative Final Parainfluenza virus 3 RNA [Presence] in Nasopharynx by JADON with non-probe detection 05/04/2023 08:47:07 Negative Negative Final Parainfluenza virus 4 RNA [Presence] in Nasopharynx by JADON with non-probe detection 05/04/2023 08:47:07 Negative Negative Final Respiratory syncytial virus RNA [Presence] in Nasopharynx by JADON with non-probe detection 05/04/2023 08:47:07 Negative Negative Final Bordetella pertussis.pertussis toxin promoter region [Presence] in Nasopharynx by JADON with non-probe detection 05/04/2023 08:47:07 Negative Negative Final Chlamydophila pneumoniae DNA [Presence] in Nasopharynx by JADON with non-probe detection 05/04/2023 08:47:07 Negative Negative Final Mycoplasma pneumoniae DNA [Presence] in Nasopharynx by JADON with non-probe detection 05/04/2023 08:47:07 Negative Negative Final Bordetella parapertussis [id number] DNA [Presence] in Nasopharynx by JADON with non-probe detection 05/04/2023 08:47:07 Negative Negative Final
The primers that detect Rhinovirus may cross react with some Enterorviruses. The validation of bronchial specimens, tracheal aspirates, and throats for this assay was developed and performance characteristics determined by [employer]. The validation of alternate specimen types has not been cleared or approved by the U.S. Food and Drug Administration (FDA). It has been determined that such clearance or approval is not necessary. Per[place] Location [facility] [place] [facility] [address] [address]
--- OUTSIDE RECORDS SUMMARY | 2023-10-02 21:57 | External Medical Summary | Summary of Care ---
Author Name Unknown Organization [facility] Address [address] [place] [address] Phone [phone] Care Team Providers Care Career Development Director Name Role Phone Amirah Agutsintriston Adhikarijatinder Primary Care Provider Encounter Details Date Type Department Care Team Description 05/28/2023 Orders Only Outcomes Research Department [address] [place] [address] Isaura Puri CHRA [facility] Other*[id number] Allergies No known active allergiesdocumented as of this encounter (statuses as of 05/28/2023) Medications Medication Sig Dispensed Refills Start Date End Date Status ASPIRIN 81 MG PO TABS 0 Act gala Docusate Sodium 50 MG Oral Capsule (Colace)Indications:Cons tipation, unspecified constipation type Take by mouth 2 times a day. 0 Active documented as of this encounter (statuses as of 05/28/2023) Active Problems Problem Noted Date Rectal pain [...] as of this encounter (statuses as of 05/28/2023) Resolved Problems Problem Noted Date Resolved Date Prediabetes 03/03/2019 06/08/2022 Overview: Per Prediabetes protocol documented as of this encounter (statuses as of 05/28/2023) Immunizations Name Administration Dates Next Due COVID-19 mRNA, LNP-s, No Pre serve, 2-Dose Series ([employer]) 06/01/2021,11/23/2020,10/28/2020 COVID-19, LNP-s, No Preserve , Joey-sucrose, Ages 12+ (Pfizer) 12/08/2021 Covid-19, Mrna, Lnp-s, Pf, B ivalent, 30 Mcg, IM, 12 yrs and above (Pfizer) 05/22/2022 Pneumococcal Conjugate Vacc, 13 Valent (Prevnar) 08/28/2014 Pneumococcal Polysaccharide PPV23 (Pneumovax) 09/27/1999 SEASONAL INFLUENZA, PF, 6 M & Above, IM , (FLULAVAL or FLUZONE) 05/28/2021,05/17/2018 Season Influenza, Quad, PF, Adjuvanted, 65+ Yrs, IM (FLUAD) 06/11/2020 Seasonal Influenza, Quadriva lent Hd (Fluzone Hd) [...] Brett Agustin, [address] [place] [address] Scheduled Orders Name Type Priority Associated Diagnoses Orde r Schedule MYCODE SUBSEQUENT ADULT Lab Routine [facility] Other*[id number] Every 6 Months for 2 Occurrences starting 05/28/2023 until 06/16/2024 Health Maintenance Due Date Last Done Comments [...] as of this encounter Visit Diagnoses Diagnosis [facility] Other*[id number] documented in this encounter Additional Health Concerns Infection Onset Date Last Indicated Resolved Time C. difficile 05/04/2023 05/04/2023 documented as of this encounter Care Teams Career Development Director Relationship Specialty Start Date End Date Brett Agustin DO [address] [place] [address] PCP - General Family Medicine 03/09/20 documented as of this encounter
--- OUTSIDE RECORDS SUMMARY | 2023-10-02 21:57 | External Medical Summary | Summary of Care ---
Author Name Unknown Organization [facility] Address [address] [place] [address] Phone [phone] Care Team Providers Care Attending Urologist Name Role Phone Brett Agustin DO Primary Care Provider Reason for Visit * Reason Onset Date Comments Appointment 05/03/2023 Encounter Details Date Type Department Care Team Description 05/03/2023 Telephone Family Practice [facility] [address] [place] [address] Brett Agustin DO [address] [place] [address] Appointment Allergies No known active allergiesdocumented as of this encounter (statuses as of 05/03/2023) Medications Medication Sig Dispensed Refills Start Date End Date Status ASPIRIN 81 MG PO TABS daily 0 Act gala ibuprofen (MOTRIN) 800 MG TabletIndications:Wrist sprain, right, initial encounter Take 1 Tab by mouth 3 times a day. with food for pain 30 Tab 1 10/30/2018 Active Docusate Sodium 50 MG Oral Capsule (Colace)Indications:Cons tipation, unspecified constipation type Take by mouth 2 times a day . 0 Active documented as of this encounter (statuses as of 05/03/2023) Active Problems Problem Noted Date Gastroesophageal reflux disease 03/09/20 20 Obesity, Class I, BMI 30.0-34.9 (see act ual BMI) 03/09/2020 Family history of colon cancer 2 Overview: father 2+ mitral insufficiency 06/06/2010 ADVANCE DIRECTIVE INFORMATION 06/05/2007 Overview: Information offered-patient declined. 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 Agustin. She has no further questions and will package pick up stool container today. * Telephone Encounter - Brett Agustin DO - 05/03/2023 10:07 AM EDT Immodium is a good medicine, we don't have anything better prescription Yes work on hydration over every thing else Advise c-diff testing (order placed) and f/u in clinic as scheduled Or ER if patient is worsening * Telephone Encounter - Jonathan Ramírez RN - 05/03/2023 9:55 AM EDT Called and spoke with patient's spouse Robert and informed her of Brittny's previous message. Sheverbalized understanding. She said she went to [facility] and got Immodium and gave the patient a dose. She is asking if there would be a better medication for diarrhea that the doctor could give him? Please advise. She said she also bought diapers because every time the patient moves he has diarrhea. She said thediarrhea started yesterday morning. She states patient is not eating much, and is trying to get himto drink. She said she is going to try to give him bananas and rice. She said she is going to try to give him tea, asking if there is anything else she should try to get him to drink? Please advise. She said she has been cleaning up diarrhea all morning and has not had time to get him anything to drink. Advised Luciaarely to take the patient to the ER for possible dehydration. She verbalized understanding and declined. She said she does not think this is an emergency situation. I then advised that she can take him to urgent care to be seen today. She verbalized understanding and declined urgent care as well. * Telephone Encounter - Brittny Agustin - 05/03/2023 9:38 AM EDT Nothing open today, please advise to pt/EC * Telephone Encounter - MARANDA Romo - 05/03/2023 8:24 AM EDT Patient needs to get an appointment for patient today. He has had diarrhea (uncontrolled) yesterday. She is really needs help. Please contact patient . Scheduled an appointment of tomorrow but she said she can't wait that long. MARANDA Romo documented in this encounter Plan of Treatment Upcoming Encounters Date Type Specialty Care Team Description 05/04/2023 Office Visit Family Medicine Aziza Silvestre CRNP [address] [place] [address] 02/06/2024 Office Visit Family Medicine Brett Agustin DO [address] [place] [address] Scheduled Orders Name Type Priority Associated Diagnoses Orde r Schedule CLOSTRIDIUM DIFFICILE, PCR Lab Routine Diarrhea of infectious origin Expected: 05/03/2023 (Approximate), Expires: 05/02/2024 Health Maintenance Due Date Last Done Comments [...] as of this encounter Visit Diagnoses Diagnosis Diarrhea of infectious origin- Primary Diarrhea of presumed infectious origin documented in this encounter Care Teams Attending Urologist Relationship Specialty Start Date End Date Brett Agustin DO [address] [place] [address] PCP - General Family Medicine 03/09/20 documented as of this encounter
--- OUTSIDE RECORDS SUMMARY | 2023-10-02 21:57 | External Medical Summary ---
Author Name Unknown Address Unknown Organization K01:[facility] [place] - [address] [facility] [address] Laboratory Report Ordering Provider Test Date Status JOHN HOGAN 05/04/2023 09:21:52 Final Observation Date Value Abnormality Reference (Units) Status Source 05/04/2023 09:21:52 Semi-liquid Final Clostridioides difficile toxin and BI-[id number] strain DNA panel - Stool by JADON with probe detection 05/04/2023 09:21:52 Positive for C. difficile toxin B gene DNA by PCR (Amplified Probe). Presumptive negative for C. difficile 027-NAP1-B1 strain by PCR (Amplified Probe). Abnormal Negative Final Performing Location LABORATORY [facility] - [address] [facility] [address]
--- OUTSIDE RECORDS SUMMARY | 2023-10-02 21:57 | External Medical Summary | Summary of Care ---
Author Name Unknown Organization [facility] Address [address] [place] [address] Phone [phone] Care Team Providers Care Personnel Training Officer Name Role Phone Brett Agustin DO Primary Care Provider Reason for Referral * Evaluate & Treat - Unlimited Visits (Within 30 days (routine)) - Authorized Specialty Diagnoses / Procedures Referred By Lindsey quezada Referred To Contact Podiatry Diagnoses Encounter for nail care Brett Agustin DO [address] [place] [address] Referral ID Status Reason Start Date Expiration Date Visits Requested Visits Authorized [id number] Authorized Specialty Services Required 09/17/2023 999 999 Question Answer Referral Priority Within 30 days (routine) Where should this appointment be scheduled? [facility] Which condition are you referring this patient for? Nail trimming Medicare Patient? Yes Can Patient perform routine footcare without assistance? No Does patient have a chronic condition? No Encounter Details Date Type Department Care Team (Late st Contact Info) Description 09/17/2023 Orders Only Family Practice [facility] [address] [place] [address] Brett Agustin DO [address] [place] [address] Encounter for nail care* Allergies No known active allergiesdocumented as of [...] mRNA, LNP-s, No Pre serve, 2-Dose Series (XIPWIRE) 06/01/2021,11/23/2020,10/28/2020 COVID-19, LNP-s, No Preserve , Joey-sucrose, Ages 12+ (Pfizer) 12/08/2021 COVID-19, MRNA-LNP, 23-24, P F, 30 MCG/0.3 mL, 12 YRS AND ABOVE, IM (Unomy-Comirnat) 06/18/2023 Covid-19, Mrna, Lnp-s, Pf, B ivalent, 30 Mcg, IM, 12 yrs and above (XIPWIRE) 05/22/2022 Pneumococcal Conjugate Vacc, 13 Valent (Prevnar) [...] 09/17/2023 11:00 AM EST Nurse Only Ancillary [facility] [address] [address] [address] [facility], Nurse Annual Wellness [facility] [address] [place] [address] Adult Annual Wellness Visit, Subsequent Visit 02/06/2024 8:00 AM EDT Office Visit Family Practice [facility] [address] [place] [address] Brett Agustin DO [address] [place] [address] Scheduled Referrals Name Type Priority Associated Diagnoses Orde r Schedule PODIATRY REFERRAL OP Referral Within 30 days (routine) Encounter for nail care Ordered: 09/17/2023 Health Maintenance Due Date Last Done Comments [...] and functional assessment Screening for unspecified condition Encounter for nail care- Primary documented in this encounter Care Teams Personnel Training Officer Relationship Specialty Start Date End Date Brett Agustin DO [address] [place] [address] PCP - General Family Medicine 03/09/20 documented as of this encounter
--- OUTSIDE RECORDS SUMMARY | 2023-10-02 21:57 | External Medical Summary | Summary of Care ---
Author Name Unknown Organization [facility] Address [address] [place] [address] Phone [phone] Care Team Providers Care Manufacturing Weaver Name Role Phone Vamsi Brett Luna DO Primary Care Provider Reason for Visit * Reason Comments Acute Patient presents in office today for ongoing complaints of diarrhea ongoing the past 2 days. Encounter Details Date Type Department Care Team Description 05/04/2023 Office Visit [facility] [address] [facility] [place] [address] [facility] [address] Mild dehydration*; Acute diarrhea Allergies No known active allergiesdocumented as of [...] mRNA, LNP-s, No Pre serve, 2-Dose Series (Trochet) 06/01/2021,11/23/2020,10/28/2020 COVID-19, LNP-s, No Preserve , Joey-sucrose, [...] Sign Reading Time Taken Comments Blood Pressure 122/66 05/04/2023 8:24 AM EDT Pulse 74 05/04/2023 8:24 AM EDT Temperature 36.4 C (97.5 F) 05/04/2023 8:24 AM ED T Respiratory Rate 20 05/04/2023 8:24 AM EDT Oxygen Saturation - - Inhaled Oxygen Concentration - - Weight 75.3 kg (166 lb) 05/04/2023 8:24 AM EDT Height 160 cm (5' 3") 05/04/2023 8:24 AM EDT Body Mass Index 29.41 05/04/2023 8:24 AM EDT documented in this encounter Progress Notes * YINKA Krause - 05/04/2023 8:25 AM EDT Acute Family Medicine Visit CC: Chief Complaint Patient presents with Acute Patient presents in office today for ongoing complaints of diarrhea ongoing the past 2 days. History of Present Illness: Phu Lopez is a 87 year old male presenting today with complaitns of diarrhea x 2 days. He ishaving explosive diarrhea, watery at least 4 times daily. He has no abdominal pain, nausea or vomiting. Denies fever or URI symptoms. He is tolerating fluids. Minimal food intake. Took clindamycin in March for gum infection. Finished on 04/17/2023. Social History Socioeconomic History Marital status: Spouse [...] REMOVE CATARACT, INSERT LENS PROSTH 1996 [place], [place] No outpatient medications have been marked as taking for the 05/04/23 encounter (Office Visit) with YINKA Krause. Review of patient's allergies indicates: No Known [...] Systems: Review of Systems Constitutional: Negative for chills and fever. Respiratory: Negative for shortness of breath. Cardiovascular: Negative for chest pain. Gastrointestinal: Positive for diarrhea. Negative for abdominal pain, nausea and vomiting. Neurological: Positive for dizziness and light-headedness. Negative for syncope. Psychiatric/Behavioral: Negative for sleep disturbance. Physical Exam: Filed Vitals: 05/04/23 0824 BP: 122/66 Pulse: 74 Resp: 20 Temp: 36.4 C (97.5 F) Weight: 75.3 kg (166 lb) Height: 1.6 m (5' 3") Physical Exam Vitals and nursing note reviewed. Constitutional: Appearance: Normal appearance. HENT: Head: Normocephalic. Eyes: Pupils: Pupils are equal, round, and reactive to light. Cardiovascular: Rate and Rhythm: Normal rate and regular rhythm. Pulmonary: Effort: Pulmonary effort is normal. Breath sounds: Normal breath sounds. Abdominal: General: Bowel sounds are normal. Palpations: Abdomen is soft. There is no mass. Tenderness: There is no abdominal tenderness. Musculoskeletal: General: Normal range of motion. Cervical back: Normal range of motion. Skin: General: Skin is warm and dry. Neurological: General: No focal deficit present. Mental Status: He is alert and oriented to person, place, and time. Psychiatric: Mood and Affect: Mood normal. Behavior: Behavior normal. Thought Content: Thought content normal. Judgment: Judgment normal. Assessment and Plan: 1. Mild dehydration No tachycardia, mild lightheadedness with movement. Increase fluids and can add zero sugar gatorade Reviewed signs and symptoms to watch for Low threshold to go to ED- patient's agrees 2. Acute diarrhea Suspected infectious etiology S/p clindamycin Do not take immodium at this time - CLOSTRIDIUM DIFFICILE, PCR - GASTROINTESTINAL PATHOGEN PANEL, STOOL I have advised the patient to call our office incase of any worsening or new symptoms. I spent a total of 40-54 minutes (exact time 40 mins) on the date of service in preparation, delivery, and documentation of the care provided to Phu Lopez excluding any time spent in the performance of separately billed services. Linda, MSN, TRANSIT PLANNING MANAGER [facility] documented in this encounter Nursing Notes * NESTOR Lobo - 05/04/2023 8:23 AM EDT The patient has been properly identified by confirmation of name and date of . Chief Complaint Patient presents with Acute Patient presents in office today for ongoing complaints of diarrhea ongoing the past 2 days. documented in this encounter Plan of Treatment Upcoming Encounters Date Type Specialty Care Team Description 02/06/2024 Office Visit Family Medicine Brett Agustin, [address] [place] [address] Pending Results Name Type Priority Associated Diagnoses Date /Time CLOSTRIDIUM DIFFICILE, PCR Lab STAT Acute diarrhea 05/04/2023 9:21 AM EDT RESPIRATORY PATHOGEN PANEL, PCR Lab Routine Acute diarrhea 05/04/2023 8:47 AM EDT Scheduled Orders Name Type Priority Associated Diagnoses Orde r Schedule GASTROINTESTINAL PATHOGEN PANEL, STOOL Lab STAT Acute diarrhea Ordered: 05/04/2023 RESPIRATORY PATHOGEN PANEL, PCR Lab Routine Acute diarrhea Expected: 05/04/2023 (Approximate), Expires: 05/03/2024 Health Maintenance Due Date Last Done Comments [...] as of this encounter Visit Diagnoses Diagnosis Mild dehydration- Primary Dehydration Acute diarrhea Diarrhea documented in this encounter Additional Health Concerns Infection Onset Date Last Indicated Resolved Time C. difficile Rule-Out 05/04/2023 05/04/2023 Gastrointestinal Rule-Out 05/04/2023 05/04/2023 Respiratory Rule-Out 05/04/2023 05/04/2023 documented as of this encounter Care Teams Manufacturing Weaver Relationship Specialty Start Date End Date Brett Agustin DO [address] [place] [address] PCP - General Family Medicine 03/09/20 documented as of this encounter
--- OUTSIDE RECORDS SUMMARY | 2023-10-02 21:57 | External Medical Summary | Summary of Care ---
Author Name Unknown Organization [facility] Address [address] [place] [address] Phone [phone] Care Team Providers Care Fitting Room Attendant Name Role Phone Agustin Brett Luna DO Primary Care Provider Reason for Visit * Reason Onset Date Comments Appointment 05/23/2023 Encounter Details Date Type Department Care Team Description 05/23/2023 Telephone Family Practice [facility] [address] [place] [address] Aziza Silvestre CRNP [address] [facility] [address] Appointment Allergies No known active allergiesdocumented as [...] encounter Miscellaneous Notes * Telephone Encounter - NESTOR Lobo - 05/23/2023 4:37 PM EDT Attempted to reach patient via home phone #. Left detailed message. Patient walked out without flu shot at today's appointment. If he would like one please assist withscheduling a nurse visit at his convenience, or he may go to a local pharmacy to have done if easier for him. documented in this encounter Plan of Treatment Upcoming Encounters Date Type Specialty Care Team Description 02/06/2024 Office Visit Family Medicine Brett Agustin, DO [address] [place] [address] Health Maintenance Due Date Last Done Comments [...] documented as of this encounter Care Teams Fitting Room Attendant Relationship Specialty Start Date End Date Brett Agustin DO [address] [place] [address] PCP - General Family Medicine 03/09/20 documented as of this encounter
--- OUTSIDE RECORDS SUMMARY | 2023-10-03 06:44 | External Medical Summary | Summary of Care ---
Author Name Unknown Organization [facility] Address [address] [place] [address] Phone [phone] Care Team Providers Care Alarm Field Technician Name Role Phone Brett Agustin DO Primary Care Provider Reason for Visit * Reason Onset Date Comments Advice 09/27/2023 Encounter Details Date Type Department Care Team (Late st Contact Info) Description 09/27/2023 Telephone Family Practice [facility] [address] [place] [address] Brett Agustin DO [address] [place] [address] Advice Allergies No known active allergiesdocumented as of this encounter (statuses as of 10/02/2023) Medications Medication Sig Dispensed Refills Start Date End Date Status ASPIRIN 81 MG PO TABS 0 Act gala Docusate Sodium 50 MG Oral Capsule (Colace)Indications:Cons tipation, unspecified constipation type Take by mouth 2 times a day. 0 Active documented as of this encounter (statuses as of 10/02/2023) Active Problems Problem Noted Date Diagnosed Date [...] as of this encounter (statuses as of 10/02/2023) Resolved Problems Problem Noted Date Diagnosed Date Resolved Date Prediabetes 03/03/2019 06/08/2022 Overview: Per Prediabetes protocol documented as of this encounter (statuses as of 10/02/2023) Immunizations Name Administration Dates Next Due COVID-19 mRNA, LNP-s, No Pre serve, 2-Dose Series (SageCloud) 06/01/2021,11/23/2020,10/28/2020 COVID-19, LNP-s, No Preserve , Joey-sucrose, [...] encounter Miscellaneous Notes * Telephone Encounter - Natalie Barr LPN - 10/02/2023 11:02 AM EST Called and spoke with pts who is agreeable to CC for evaluation. "States they will head there right now" Aware of message below * Telephone Encounter - Brett Agustin DO - 10/02/2023 10:44 AM EST Obviously very sorry that the triage took this long But at this point with him improving would advise continuing Conservative management - ok to take OTC mucinex if needed To help clear mucous - otherwise obviously we need an evaluation In person which would mean CC vs acute apt * Telephone Encounter - Ny Urbano LPN - 10/02/2023 9:32 AM EST Called patients to check on patient. was very angry that she has not gotten a response yet. I apologized and explained the turn around time for calls. Advised that if it is an emergency, the ER is always open. yelled and stated "Im not taking him to the ER its full of RSV. This is just ridiculous". I apologized again. I repeatedly asked how patient was feeling currently. She did state patient "seems better". He is "having trouble breathing"-reports breathing is shallow. Patient is awake and alert and talking. I explained that if patient is short of breath, he needed to go to the ER for evaluation. stated no "he's better then . I couldn't get anyone on the phone. ,The pharmacist wouldn't give me advise on cold medicine. What am I supposed to do if I need help". I advised again, ER for emergencies and Urgent care. stated "I didn't think of taking him to urgent care". I asked if they had a pulse oximeter to check patients oxygen level. stated "No we don't. Thank you for the call". disconnected the call at this time. was extremely hard to talk to. Continued to talk over staff and raise her voice. Please advise-nothing acute open today or tomorrow. Should patient go to UC or ER?? * Telephone Encounter - Yaneli Galdamez OSA - 10/01/2023 9:27 AM EST Pt calling back in still waiting a call back [facility] call back number [phone] * Telephone Encounter - Kati Chapman OSA - 09/28/2023 7:56 AM EST Patient calling in to check on the status of previous message. Patient Called within 48 hour timeframe. Reminded patient of 48 hour turn-around time. * Telephone Encounter - Gary Greco OSA - 09/27/2023 2:49 PM EST Pt calling stating pt still has nausea, coughing with mucus, and fatigue for the past week. Pt has no fever. Pt is not eating much. Pt has had these symptoms for the past week. Pt was advised to take Delsym by triage nurse on 09/23. Pt's asking if something else can be prescribed. Pt uses [facility] in [place]. Please advise pts at [phone]. documented in this encounter Plan of Treatment Upcoming Encounters Date Type Department Care Team (Late st Contact Info) Description 10/02/2023 11:50 AM EST Convenient Care Visit [facility] [address] [place] [address] Natalie Andres PA-C [address] [facility] [place] [address] 02/06/2024 8:00 AM EDT Office Visit Family Practice [facility] [address] [address] Brett Agustin DO [address] [place] [address] Health Maintenance Due Date Last Done Comments [...] filedocumented as of this encounter Care Teams Alarm Field Technician Relationship Specialty Start Date End Date Brett Agustin DO [address] [place] [address] PCP - General Family Medicine 03/09/20 documented as of this encounter
--- OUTSIDE RECORDS SUMMARY | 2023-10-03 06:44 | External Medical Summary | Summary of Care ---
Author Name Unknown Organization [facility] Address [address] [place] [address] Phone [phone] Care Team Providers Care Windows Server Architect Name Role Phone Vamsi Brett Luna DO Primary Care Provider Reason for Visit * Reason Comments Congestion Sinus Problem Cough Short of Breath Encounter Details Date Type Department Care Team (Latest Contact Info) Description 10/02/2023 11:50 AM [facility] Convenient Care Visit [facility] [address] [place] [address] Natalie Andres PA-C [address] [place] [address] SOB (shortness of breath)*; Upper respiratory tract infection, unspecified type; Altered mental status, unspecified altered mental status type Allergies No known active allergiesdocumented as of [...] mRNA, LNP-s, No Pre serve, 2-Dose Series (APX) 06/01/2021,11/23/2020,10/28/2020 COVID-19, LNP-s, No Preserve , Joey-sucrose, Ages 12+ (Pfizer) 12/08/2021 COVID-19, MRNA-LNP, 23-24, P F, 30 MCG/0.3 mL, 12 YRS AND ABOVE, IM ([facility] 06/18/2023 Covid-19, Mrna, Lnp-s, Pf, B ivalent, 30 Mcg, IM, 12 yrs and above (APX) 05/22/2022 Pneumococcal Conjugate Vacc, 13 Valent (Prevnar) [...] Never Smokeless Tobacco: Never Tobacco Cessation:Counseling Given: No Alcohol Use Standard Drinks/Week Comments Yes 0 [...] Sign Reading Time Taken Comments Blood Pressure 154/108 10/02/2023 11:37 AM EST Pulse 135 10/02/2023 11:37 AM EST Temperature 35.7 C (96.3 F) 10/02/2023 11:[address] Respiratory Rate 20 10/02/2023 11:37 AM EST Oxygen Saturation 93% 10/02/2023 11:37 AM EST Inhaled Oxygen Concentration - - Weight 80.7 kg (178 lb) 10/02/2023 11:37 AM EST Height - - Body Mass Index 31.53 09/17/2023 10:39 AM EST documented in this encounter Progress Notes * Natalie Andres PA-C - 10/02/2023 11:52 AM EST Phu Lopez is a 88 year old male. who presents with upper/lower respiratory symptoms for 16 day(s) Patient was accompanied by Spouse. HPI Signs and Symptoms include: congestion, cough, sob, change in mental status, wheezing Severity of Symptoms: Moderate Timing (how often does it occur): Constant Modifying Factors (what was done since onset of symptoms): sahil kathleen Patient came to clinic in acute respiratory distress. Patient was brought back for acute vitals. Patient's HR found to be irregular. Spouse notes worsening SOB with illness. Also notes that patient has had episodes of confusion and loss of orientation to place and time. She notes that he has no history of arrythmia or afib, and has never needed O2. No MARANDA. Constitutional: + fevers, chills, sweats, fatigue Recent illnesses in household: no ROS All others negative other than those noted in HPI HISTORY Patient Active Problem List Diagnosis Code ADVANCE DIRECTIVE INFORMATION Impotence of organic origin N52.9 2+ mitral insufficiency I05.9 Family history of colon cancer Z80.0 Gastroesophageal reflux disease K21.9 Obesity, Class I, BMI 30.0-34.9 (see actual BMI) E66.9 Acute diarrhea R19.7 Mild dehydration E86.0 C. difficile colitis A04.72 Hemorrhoids, external without complications K64.4 Rectal pain K62.89 Fall W19.XXXA Current Outpatient Medications Medication Sig Dispense Refill [...] REMOVE CATARACT, INSERT LENS PROSTH 1996 , [place] Review of patient's allergies indicates: No Known [...] Resource Strain: Not on file Food Insecurity: No Food Insecurity (09/17/2023) Hunger Vital Sign Worried About Running Out of Food in the Last Year: Never true Ran Out of Food in the Last Year: Never true Transportation Needs: Not on file Physical Activity: Not on file Stress: Not on file Social Connections: Not on file Intimate Partner Violence: Not on file Housing Stability: Not on file OBJECTIVE BP 154/108 | Pulse 135 | Temp 35.7 C (96.3 F) (Tympanic) | Resp 20 | Wt 80.7 kg (178 lb) | [id number]% | BMI 31.53 kg/m | BSA 1.89 m Physical Exam: General Appearance: awake, alert, in acute distress. Left side of face with mouth droop but patientsymmetrical when smiles. also notes that patient's face looks normal for him. HEENT: perrl and eomi Tm right: clear, normal light reflex, no erythema Tm left: clear, normal light reflex, no erythema oral pharynx clear, mucus membranes moist + red and irritated pharynx no sinus tenderness or facial pain to percussion + turbinate engorgement and discharge Neck: normal, supple, + adenopathy Respiratory: + rhonchi, + wheezes and + left base crackles Heart: tachycardia with irregular pulse, no murmurs , no rubs and no gallops Skin: skin color, texture, turgor are normal, no rashes or significant lesions ASSESSMENT AND PLAN SOB (shortness of breath) (Primary) - EKG; Future; Expected date: 10/02/2023 - EKG Upper respiratory tract infection, unspecified type - EKG; Future; Expected date: 10/02/2023 - EKG Altered mental status, unspecified altered mental status type Patient was given 2L of O2 and found improved to 100% SpO2. Patient was able to get seated EKG which showed atrial fibrillation with RVR. Due to new Afib and change in mental status and current respiratory distress, it was determined that patient required a higher level of care. EMS was contacted and patient went out via ambulance. ED triage nurse contacted and patient presented for continuity of care. Care instructions given. Additional instructions per patient instructions attached. Patient agrees with the plan and demonstrates verbal understanding. Patient stable at the time of discharge. Patient goals for plan of care were discussed. Natalie Andres PA-C [address] [address] documented in this encounter Nursing Notes * Christiane Berry PBT - 10/02/2023 11:38 AM EST Phu Lopez is a 88 year old male who presents to walk-in clinic today complaining of Chief Complaint Patient presents with Congestion Sinus Problem Cough Short of Breath Main Symptoms:Increased SOB, non productive cough, wheezing. Cause: Unknown How long: Onset 09/17/23 Tried: Delsym, no relief Mucinex, no relief Pt accompanied by: Self/Spouse documented in this encounter Plan of Treatment Upcoming Encounters Date Type Department Care Team (Late st Contact Info) Description 02/06/2024 8:00 AM EDT Office Visit [facility] [address] [place] [id number] Brett Agustin DO [address] [place] [address] Scheduled Orders Name Type Priority Associated Diagnoses Orde r Schedule EKG EKG Routine SOB (shortness of breath) Upper respiratory tract infection, unspecified type Expected: 10/02/2023, Expires: 10/30/2024 Health Maintenance Due Date Last Done Comments [...] as of this encounter Visit Diagnoses Diagnosis SOB (shortness of breath)- Primary Shortness of breath Upper respiratory tract infection, unspecified type Altered mental status, unspecified altered mental status type documented in this encounter Care Teams Windows Server Architect Relationship Specialty Start Date End Date Brett Agustin DO [address] [place] [address] PCP - General Family Medicine 03/09/20 documented as of this encounter"
[2023-10-03 07:19] LABS: Hematocrit (blood only) 37.5 % (42.0-52.0); Hemoglobin 12.7 g/dl (14.0-18.0); Mean Corpuscular Hemoglobin 32.6 pg (25.0-34.0); Mean Corpuscular Hgb Conc 33.9 g/dL (32.0-36.0); Mean Corpuscular Volume 96.4 fL (80.0-100.0); Mean Platelet Volume 11.6 fL (9.4-12.4); Platelet Count 226 K/uL (130-400); RDW Standard Deviation 51.5 fL (36.4-46.3); Red Blood Count 3.89 M/uL (4.70-6.10); White Blood Count 7.03 K/ul (4.8-10.8)
[2023-10-03 07:39] LABS: BUN Creatinine Ratio 35.6 (10-20); Calcium 8.6 mg/dl (8.6-10.3); Creatinine Clr Calc Pharmacy 46.6 ml/min; Est GFR (African American) 73.4 ml/min; Est GFR (Non-African American) 63.4 ml/min; Magnesium 2.1 mg/dl (1.7-2.4); Potassium 4.6 mmol/L (3.5-5.1)
[2023-10-03 07:54] LABS: ANTI-Xa, UFH(UnfractionatedHep 1.02 IU/ml (0.3-0.7)
[2023-10-03] MEDS: POLYETHYLENE (MIRALAX) 17 GM PACK PO SCH (08:08)
[2023-10-03] MEDS: FUROSEMIDE INJ 20 MG/2 ML VIAL IV SCH (08:08)
--- NOTE | 2023-10-03 12:41 | Cardiology Consultation ---
Date of Consultation October 03, 2023 Assessment & Plan (1) Acute respiratory failure with hypoxia: (2) Atrial fibrillation with rapid ventricular response: (3) Acute heart failure with reduced ejection fraction and diastolic dysfunction: Plan Patient admitted for signs/symptoms of possible respiratory virus x2 weeks with cough/SOB, however viral panel has been negative. Symptoms now associated with SOB, edema and small b/l pleural effusions, suggesting symptoms are likely due to acute CHF exacerbation. Echo completed since admission with moderately reduced LVEF at 35-40%. EKG without ischemic changes. HS troponin negative. Likely old MA based on echo findings. Medical management recommended. No symptoms to suggest angina. Continue ASA. Continue low dose furosemide 20 mg IV BP hypotensive and limiting guideline directed medications for CHF. Continue low dose beta marilee as BP allow. Monitor I+O's Daily weight, standing scale. In regards to afib RVR, patient started on metoprolol 12.5 mg q 6 hours, however dose has been held multiple times due to hypotension. Give digoxin 125 mcg x1 dose IV now Monitor on telemetry. continue metoprolol tartrate 12.5 mg q 6 with holding parameters. Continue IV heparin for now. Stroke risks discussed with patient/ - [id number] score of 3 (age, CHF) and may benefit from custodial anticoagulation. No history of frequent falls, typically fairly active. No history of anemia or bleeding. Will follow. Case discussed with Dr. Up I spent a total of 60 minutes on the date of service in preparation, delivery, and documentation of the care provided to this patient, excluding any time spent in the performance of separately billed services. Marion Sky PA-C Department of Cardiology, [facility] This chart was completed in part utilizing Speech Voice Recognition Software. Grammatical errors, random word insertions, pronoun errors, and incomplete sentences are an occasional consequence of this system due to software limitations, ambient noise, and hardware issues. Any formal questions or concerns about the content, text, or information contained within the body of this dictation should be directly addressed to the provider for clarification. Supervising Physician Co-Signing Physician Notes Attending attestation: Case reviewed with the advanced practitioner. I have personally performed a history and physical examination on the patient. I have reviewed the advanced practitioner's documentation on the date of service referenced in note, and I agree with, and take responsibility for the plan of care. Subjective: Patient without acute symptoms at the time my assessment. Rate controlled atrial fibrillation present. Exam: Cardiovascular: Irregular rhythm, II/ systolic murmur, 12+ lower extremity ed carl Data: EKG performed 10/02/2023 and interpret independently: Atrial fibrillation with rapid ventricular sponsor at 122 bpm, poor R wave progression noted in the precordial leads Impression/ Plan: Atrial fibrillation with rapid ventricular response Acute heart failure with reduced ejection fraction Hypotension in the setting of chronically low blood pressure * Echocardiogram suggests possible age-indeterminate inferoseptal, inferior MA that has taken place since the prior study performed in 2016 * Plan for initiation of digoxin for additional heart rate control * Continue low-dose metoprolol with holds as necessary for hypotension, change dose to metoprolol tartrate 12.5 mg twice daily with hold for heart rate less than 60 systolic blood pressure less than 100 mmHg * Continue unfractioned heparin, at present I am not convinced he has a candidate for chronic anticoagulation. * Conservative management for presumed underlying coronary heart disease I spent a total of 20 minutes coordinating, documenting, and providing care for this patient excluding time spent in the performance of separately billed services or time spent by another provider. Dong Up, History of Present Illness Reason for Consultation: Atrial fibrillation, new onset Requesting Physician: Ms. Sher PA-C Attending Physician: Dr. Up History of Present Illness Patient is an 88 year old male with no significant past medical history, who takes no prescription medications, only ASA 81mg daily. Over the last 2 weeks patient developed worsening cough, SOB, LE edema. He contacted PCP/nursing staff for advice and was told supportive care and use Mucinex and Delsym. Yesterday due to persistent cough, SOB, he went to urgent care clinic. He was found to have afib RVR and symptoms suggesting acute CHF exacerbation with LE edema, cough, SOB. on arrival to ER, EKG demonstrated afib RVR. Started on low dose metoprolol tartrate 12.5 mg q 6 but patient has only had two doses given hypotension with systolic blood pressure in the 90's. He was also started on IV furosemide 20 mg daily. He was started on IV heparin for stroke prophylaxis. Since admission good urine output with IV lasix. at bedside. Patient reports feeling better since admission. Still with cough, but improving. Edema improving. No dizziness. Historically patient does have low BP. No chest pain. reports he looks much better than yesterday. Allergies Allergy/AdvReac Type Severity Reaction Status Date / Time No Known Allergies Allergy Unverified 10/02/23 13:10 Home Medications Medication Instructions Recorded Confirmed Type aspirin 81 mg tablet,delayed 81 mg PO DAILY 10/02/23 10/02/23 History release docusate sodium 100 mg capsule 100 mg PO DAILY 10/02/23 10/02/23 History (Dulcolax Stool Softener (docusate)) Patient History Medical History Mitral valve insufficiency GERD (gastroesophageal reflux disease) Surgical History Hx of colonoscopy Hx of cataract extraction Family History Mother Cancer Sister Cancer Father Heart disease Social History Smoking Status: Never smoker Do You Dip or Chew Tobacco: No; Hx Alcohol Use: Yes Hx Substance Use: No Preferred Language: Malian Communication Ability: Effective Overhead Cleaner Maintainer Required: No Beliefs That Will Affect Care: None Current Living Situation: Spouse Other Information That Helps Us Care for You: No Feels Safe at Home: Yes Safety Concerns: Feels Safe At This Time Assistive Devices: None Review of Systems Review of Systems: All systems reviewed & are unremarkable except as noted in HPI & below Physical Exam Constitutional: WD/WN, vitals as above + ill appearing; no acute distress Respiratory: no respiratory distress and no labored breathing Auscultation: + crackles and + rhonchi Cardiovascular: Rate/Rhythm: + tachycardic and + irregularly irregular Vessels: + JVD Extremities: + edema (1-2+ b/l) Gastrointestinal (Abdomen): normal bowel sounds, soft, nontender, no hepatosplenomegaly Neurologic: PERRL, EOMI, accommodation nl, no face palsy, no dysarthria Results & Data Vital Signs (Past 12 Hours) Vital Signs Temp Pulse Pulse Resp BP Pulse Ox O2 Del Method 10/03/23 11:31 36.4 C L 96 H 18 91/59 L 98 Room Air 10/03/23 08:04 36.3 C L 98 H 112 H 20 108/64 98 Nasal Cannula 10/03/23 08:00 Room Air 10/03/23 04:00 36.8 C 104 H 16 92/71 L 90 Nasal Cannula O2 Flow Rate 10/03/23 11:31 10/03/23 08:04 2 10/03/23 08:00 10/03/23 04:00 2 Laboratory Results Cardiac Enzymes 10/02/23 Range/Units 12:45 AST 15 (13-39) U/L Troponin I High Sens 10.5 (0-20) pg/ml B-Natriuretic Peptide 672 H (0-100) pg/ml Coagulation 10/02/23 Range/Units 12:45 PT 12.9 H (9.0-12.0) Seconds B-Natriuretic Peptide 672 H (0-100) pg/ml CBC 10/02/23 10/03/23 Range/Units 12:45 06:35 WBC 8.77 7.03 (4.8-10.8) K/ul RBC 4.12 L 3.89 L (4.70-6.10) M/uL Hgb 14.4 12.7 L (14.0-18.0) g/dl Hct 40.3 L 37.5 L (42.0-52.0) % Plt Count 278 226 (130-400) K/uL Neut # (Auto) 6.73 H (1.40-6.50) K/uL Lymph # (Auto) 1.04 L (1.20-3.40) K/uL [place] # (Auto) 0.65 H (0.11-0.59) K/uL Eos # (Auto) 0.08 (0.00-0.50) K/uL Baso # (Auto) 0.07 (0.00-0.20) K/uL Comprehensive Metabolic Panel 10/02/23 10/03/23 Range/Units 12:45 06:35 Sodium 140 139 (136-145) mmol/L Potassium 4.7 4.6 (3.5-5.1) mmol/L Chloride 104 104 (98-107) mmol/L Carbon Dioxide 31 29 (21-32) mmol/L BUN 35 H 37 H (6-23) mg/dl Creatinine 1.06 1.04 (0.6-1.4) mg/dl Glucose 131 H 159 H (70-99(Fasting)) mg/dl Calcium 9.4 8.6 (8.6-10.3) mg/dl Direct Bilirubin 0.3 H (0-0.2) mg/dl AST 15 (13-39) U/L ALT 19 (7-52) U/L Alkaline Phosphatase 101 (34-104) U/L Total Protein 7.1 (6.0-8.3) gm/dl Albumin 4.1 (3.4-5.0) gm/dl Intake and Output 10/02/23 10/03/23 10/03/23 22:59 06:59 14:59 Intake Total 121.333 / 121.333 366.701 / 366.701 Output Total 1000 / 1100 Balance 121.333 / -978.667 -1000 / -978.667 366.701 / 366.701 Intake: IV 121.333 / 121.333 366.701 / 366.701 Heparin Sodium/Dextrose 25,000 121.333 / 121.333 366.701 / 366.701 units In 500 ml @ 1,400 UNITS/ HR 28 mls/hr IV .[id number] [facility] Rx #:[id number] Output: Urine Amount (Catheter) 1000 / 1100 Tapia/Indwelling 1000 / 1100 Other: Weight 79.4 kg 78.4 kg Weight Measurement Method Built in [facility] Diagnostic Findings Telemetry reviewed: Atrial fibrillation with rates ranging 110-120's echocardiogram completed and reviewed: Afib with mildly elevated rates mild concentric LVH Moderate diffuse LV hypokinesis with more focal hypokinesis to akinesis encompassing the septal and inferior wallace. LV systolic function is moderately reduced with ejection fraction 35-40%. Aortic valve sclerosis moderate without significant aortic valvular stenosis. Moderate MR. Compared with prior outpatient study in 2016, there has been interval decline in LV systolic function. EKG reviewed from 10/02/23; Atrial fibrillation with rapid ventricular response Left axis deviation no acute ischemic changes noted Chest xray reviewed from admission: IMPRESSION: 1. Cardiomegaly with mild congestive change and trace bilateral pleural effusions. 2. Bibasilar linear densities are nonspecific but may represent atelectasis. A pneumonia could also have a similar appearance in the appropriate clinical setting. Medications Administered Current Inpatient Medications Acetaminophen (Acetaminophen 325 Mg Tab) 650 mg PO Q4H PRN PRN Reason: Moderate Pain (Scale 4, 5, 6) Stop: 11/01/23 18:15 Bisacodyl (Bisacodyl 5 Mg Tabec) 10 mg PO DAILY [facility] Stop: 11/01/23 18:15 Last Admin: 10/03/23 08:08 Dose: 10 mg Furosemide (Furosemide Inj 20 Mg/2 Ml Vial) 20 mg IV DAILY [facility] Stop: 11/02/23 08:59 Last Admin: 10/03/23 08:08 Dose: 20 mg Heparin Sodium/Dextrose (Heparin Sodium/Dextrose) 25,000 units in 500 mls @ 22 mls/hr IV .[id number] [facility]; Protocol Stop: 11/01/23 14:29 Last Admin: 10/03/23 14:04 Dose: Not Given Levalbuterol HCl (Levalbuterol 1.25mg/0.5ml Neb) 1.25 mg NEB Q2H PRN; Protocol PRN Reason: Shortness Of Breath Stop: 11/01/23 18:34 Metoprolol Tartrate (Metoprolol Tartrate 25 Mg Tab) 12.5 mg PO Q6 [facility] Stop: 11/01/23 18:44 Last Admin: 10/03/23 11:30 Dose: Not Given Ondansetron HCl (Ondansetron Inj 2 Mg/Ml 2 Ml Vial) 4 mg IV Q4H PRN PRN Reason: Nausea And Vomiting Stop: 11/01/23 18:15
[2023-10-03] MEDS: DIGOXIN 125 MCG in SYRINGE 9.5 ML IV ONE (14:42)
[2023-10-03 15:22] LABS: ANTI-Xa, UFH(UnfractionatedHep 0.69 IU/ml (0.3-0.7)
[2023-10-03 17:00] LABS: A calco-baum cmplx NotReported Not Detected (NotDetected); Bact fragilis Not Reported Not Detected (NotDetected); Blood Culture Id Panel See PCR Comment (NotDetected); C auris Not Reported Not Detected (NotDetected); Calbicans Not Reported Not Detected (NotDetected); Candida glabrata Not Reported Not Detected (NotDetected); Candida krusei Not Reported Not Detected (NotDetected); Cneoformans/gatti Not Reported Not Detected (NotDetected); Cparapsilosis Not Reported Not Detected (NotDetected); E cloacae compx Not Reported Not Detected (NotDetected); Efaecalis Not Reported Not Detected (NotDetected); Efaecium Not Reported Not Detected (NotDetected); Enterobacterales Not Reported Not Detected (NotDetected); Escherichia coli Not Reported Not Detected (NotDetected); H influenzae Not Reported Not Detected (NotDetected); K aerogenes Not Reported Not Detected (NotDetected); Koxytoca Not Reported Not Detected (NotDetected); Kpneumoniae grp Not Reported Not Detected (NotDetected); Lmonocyt Not Reported Not Detected (NotDetected); N meningitidis Not Reported Not Detected (NotDetected); P aeruginosa Not Reported Not Detected (NotDetected); Proteus spp Not Reported Not Detected (NotDetected); Salmonella spp Not Reported Not Detected (NotDetected); Smarcescens Not Reported Not Detected (NotDetected); Staph lugdunensis Not Reported Not Detected (NotDetected); Staph spp. Not Reported DETECTED (NotDetected); Staphaureus Not Reported Not Detected (NotDetected); Staphepi Not Reported DETECTED (NotDetected); Stenmaltophilia Not Reported Not Detected (NotDetected); Strep agal(GrpB) Not Reported Not Detected (NotDetected); Strep pneum Not Reported Not Detected (NotDetected); Strep pyog (GrpA) Not Reported Not Detected (NotDetected); Strep spp Not Reported Not Detected (NotDetected); mecAC Resistant Gene Not Detected (NotDetected)
[2023-10-03 17:15] LABS: Staphylococcus epidermidis DETECTED (NotDetected); Staphylococcus spp. DETECTED (NotDetected)
[2023-10-03] MEDS: METOPROLOL TARTRATE 25 MG TAB PO SCH (19:54)
--- NOTE | 2023-10-03 22:28 | Hospitalist Progress Note ---
Date of Service October 03, 2023 Assessment & Plan (1) Atrial fibrillation, new onset: (2) Acute respiratory failure with hypoxia: (3) Atrial fibrillation with rapid ventricular response: (4) Acute HFrEF (heart failure with reduced ejection fraction): Plan Pt is an 88-year-old male with PMHx significant for GERD, 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 Acute hypoxic Respiratory Failure Pt presented with oxygen saturation in the 80s, new oxygen requirement VBG pH 7.35, pCO2 of 56, was reportedly on bipap at one point Biofire negative Chest XRAY with cardiomegaly with mild congestive change and trace bilateral pleural effusions. Symptoms likely in setting of a fib with RVR, acute HFrEF (see below) Oxygen supplementation as needed, wean as tolerated Atrial Fibrillation with RVR HR in 130s on presentation EKG with a fib with rvr with HR 122 Was started on po metoprolol tartrate 25mg q6h on admission for rate control, however was held for multiple doses due to low BP Cardiology previously consulted- pt received dose of IV digoxin 125mcg, transitioned to met tart 25mg BID On heparin drip for anticoagulation, continue Continue to monitor on telemetry Acute HFrEF BNP 672 EKG with a fib with rvr with HR 122, trop wnl Echo with EF 35-40%, mild LVH, moderate L ventricle hypokinesis, moderate mitral regurgitation Continue IV Lasix 20mg [place] for accurate I and O, daily weights Monitor BP with diuresis and heart rate control noted above Constipation Was started on miralax and dulcolax Pt with reported diarrhea per nursing, discontinued DVT ppx: heparin gtt currently FEN/GI: HH diet/fluid restriction 1500 ml/low sodium CODE: DNR/DNI Dispo: PT recommending rehab Admission and Anticipated Discharge Date Admission Date: October 02, 2023 Subjective Pt stated that he was a bit confused as to what was going on. AAOx2. Stated that he felt "great". Asking for his . Review of Systems Review of Systems: All systems reviewed & are unremarkable except as noted in Subjective Physical Exam Physical Exam: General: Alert. No acute distress Skin: No noted rashes or bruises Psych: Appropriate mood and affect Neuro:Difficulty with movements in the bed HEENT: NC/AT Chest: Nontender to palpation. CV: Irregular Resp: Breath sounds clear bilaterally, no increased effort of breathing. Abdomen: Soft, nontender Extremities: edema in lower extremities bilaterally. Results & Data Results & Data Vital Signs (Past 12 Hours) Vital Signs Temp Pulse Pulse Resp BP Pulse Ox O2 Del Method 10/03/23 11:31 36.4 C L 96 H 18 91/59 L 98 Room Air 10/03/23 08:04 36.3 C L 98 H 112 H 20 108/64 98 Nasal Cannula 10/03/23 08:00 Room Air 10/03/23 04:00 36.8 C 104 H 16 92/71 L 90 Nasal Cannula O2 Flow Rate 10/03/23 11:31 10/03/23 08:04 2 10/03/23 08:00 10/03/23 04:00 2
[2023-10-04 06:08] LABS: Basophils # (auto) 0.04 K/uL (0.00-0.20); Basophils % (auto) 0.4 %; Hematocrit (blood only) 37.3 % (42.0-52.0); Hemoglobin 12.5 g/dl (14.0-18.0); Immature Granulocytes # (auto) 0.11 K/uL (0.01-0.20); Immature Granulocytes % (auto) 1.1 %; Lymphocytes # (auto) 1.28 K/uL (1.20-3.40); Lymphocytes % (auto) 13.2 %; Mean Corpuscular Hemoglobin 30.9 pg (25.0-34.0); Mean Corpuscular Hgb Conc 33.5 g/dL (32.0-36.0); Mean Corpuscular Volume 92.3 fL (80.0-100.0); Mean Platelet Volume 11.4 fL (9.4-12.4); Monocytes # (auto) 0.93 K/uL (0.11-0.59); Monocytes % (auto) 9.6 %; Neutrophils # (auto) 7.27 K/uL (1.40-6.50); Neutrophils % (auto) 74.7 %; Platelet Count 247 K/uL (130-400); RDW Coefficient of Variation 14.9 % (11.5-14.5); RDW Standard Deviation 49.9 fL (36.4-46.3); Red Blood Count 4.04 M/uL (4.70-6.10); White Blood Count 9.73 K/ul (4.8-10.8)
[2023-10-04 06:36] LABS: Albumin Globulin Ratio 1.3 (0.9-2); Albumin Level 3.2 gm/dl (3.4-5.0); BUN Creatinine Ratio 33.6 (10-20); Bilirubin,Total 0.7 mg/dl (0.2-1.0); Calcium 8.4 mg/dl (8.6-10.3); Creatinine Clr Calc Pharmacy 39.7 ml/min; Est GFR (African American) 60.5 ml/min; Est GFR (Non-African American) 52.2 ml/min; Globulin 2.4 gm/dl (2.5-4.0); Phosphorus 3.4 mg/dl (2.5-4.9); Potassium 4.5 mmol/L (3.5-5.1); Total Protein 5.6 gm/dl (6.0-8.3)
[2023-10-04 16:01] LABS: ANTI-Xa, UFH(UnfractionatedHep 0.41 IU/ml (0.3-0.7)
--- NOTE | 2023-10-04 16:19 | Cardiology Progress Note ---
Date of Service October 04, 2023 Assessment & Plan (1) Acute respiratory failure with hypoxia: (2) Atrial fibrillation with rapid ventricular response: (3) Acute heart failure with reduced ejection fraction and diastolic dysfunction: Plan Patient admitted for signs/symptoms of possible respiratory virus x2 weeks with cough/SOB, however viral panel has been negative. Symptoms now associated with SOB, edema and small b/l pleural effusions, suggesting symptoms are likely due to acute CHF exacerbation. Echo completed since admission with moderately reduced LVEF at 35-40%. EKG without ischemic changes. HS troponin negative. Likely old [place] based on echo findings. Medical management recommended. No symptoms to suggest angina. Continue ASA. Continue low dose furosemide 20 mg IV BP hypotensive and limiting guideline directed medications for CHF. Continue low dose beta marilee as BP allow. Monitor I+O's Daily weight, standing scale. In regards to afib RVR, patient started on metoprolol 12.5 mg q 6 hours, however dose has been held multiple times due to hypotension. Give digoxin 125 mcg x1 dose IV now Monitor on telemetry. continue metoprolol tartrate 12.5 mg q 6 with holding parameters. Continue IV heparin for now. 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 No history of frequent falls, typically fairly active. No history of anemia or bleeding. 10/04/23: HR trending down but remains borderline elevated. Beta marilee limited due to hypotension Received dose of digoxin yesterday and repeat IV digoxin today. Possibly transition to oral dose tomorrow Continue low dose metoprolol 12.5 mg BID. Continue IV furosemide. Received one dose of 20 mg IV this morning. Repeat one dose 20 mg x1 now. Will hold diuretics in AM and review labs/BP. Repeat chest xray in AM. Continue unfractionated heparin for now, local intermodal truck driver anticoagulation will need to be discussed. CHADSVASC score of 3 Conservative management for presumed underlying coronary heart disease Continue ASA. Will follow. Case discussed with Dr. Schulz I spent a total of 35 minutes on the date of service in preparation, delivery, and documentation of the care provided to this patient, excluding any time spent in the performance of separately billed services. Marion Sky PA-C Department of Cardiology, [facility] This chart was completed in part utilizing Speech Voice Recognition Software. Grammatical errors, random word insertions, pronoun errors, and incomplete sentences are an occasional consequence of this system due to software limitations, ambient noise, and hardware issues. Any formal questions or concerns about the content, text, or information contained within the body of this dictation should be directly addressed to the provider for clarification. Admission and Anticipated Discharge Date Admission Date: October 02, 2023 Supervising Physician Co-Signing Physician Notes Attending attestation: I have reviewed the advanced practitioner's documentation on the date of service referenced in note, and I agree with, and take responsibility for the plan of care. Subjective: Patient without acute symptoms at the time my assessment. Telemetry reveals AF with HR 100-110 bpm. Denies CP or SOB. Exam: Cardiovascular: Irregular rhythm, II/ systolic murmur, 12+ lower extremity edema, Data: A/P: 88 y/o male with acute heart failure with reduced ejection fraction, atrial fibrillation with rapid ventricular response, and chronic hypotension. Continue digoxin load, low metoprolol and IV diuresis. Monitor daily weight, GFR, and electrolytes. I spent a total of 20 minutes coordinating, documenting, and providing care for this patient excluding time spent in the performance of separately billed services or time spent by another provider. Subjective Patient resting in chair comfortably. Ongoing cough and dyspnea reported. No chest pain. Tolerating meds. approx 2 L output since yesterday with low dose lasix. meds limited due to hypotension. Review of Systems Review of Systems: All systems reviewed & are unremarkable except as noted in HPI & below Physical Exam Constitutional: WD/WN, vitals as above + ill appearing; no acute distress Respiratory: no respiratory distress and no labored breathing Auscultation: + crackles and + rhonchi Cardiovascular: Rate/Rhythm: + tachycardic and + irregularly irregular Vessels: + JVD Extremities: + edema (1-2+ b/l) Gastrointestinal (Abdomen): normal bowel sounds, soft, nontender, no hepatosplenomegaly Neurologic: PERRL, EOMI, accommodation nl, no face palsy, no dysarthria Results & Data Vital Signs (Past 12 Hours) Vital Signs Temp Pulse Pulse Resp BP Pulse Ox O2 Del Method 10/04/23 15:12 100 H 10/04/23 15:02 36.3 C L 96 H 22 103/96 92 Room Air 10/04/23 11:58 36.6 C 104 H 18 94/62 L 96 Room Air 10/04/23 08:18 36.5 C 111 H 18 113/73 96 Nasal Cannula 10/04/23 08:15 105 H 10/04/23 08:00 Nasal Cannula O2 Flow Rate 10/04/23 15:12 10/04/23 15:02 10/04/23 11:58 10/04/23 08:18 2 10/04/23 08:15 10/04/23 08:00 2 Laboratory Results Cardiac Enzymes 10/04/23 Range/Units 05:43 AST 11 L (13-39) U/L CBC 10/04/23 Range/Units 05:43 WBC 9.73 (4.8-10.8) K/ul RBC 4.04 L (4.70-6.10) M/uL Hgb 12.5 L (14.0-18.0) g/dl Hct 37.3 L (42.0-52.0) % Plt Count 247 (130-400) K/uL Neut # (Auto) 7.27 H (1.40-6.50) K/uL Lymph # (Auto) 1.28 (1.20-3.40) K/uL [place] # (Auto) 0.93 H (0.11-0.59) K/uL Eos # (Auto) 0.10 (0.00-0.50) K/uL Baso # (Auto) 0.04 (0.00-0.20) K/uL Comprehensive Metabolic Panel 10/04/23 Range/Units 05:43 Sodium 138 (136-145) mmol/L Potassium 4.5 (3.5-5.1) mmol/L Chloride 103 (98-107) mmol/L Carbon Dioxide 30 (21-32) mmol/L BUN 41 H (6-23) mg/dl Creatinine 1.22 (0.6-1.4) mg/dl Glucose 110 H (70-99(Fasting)) mg/dl Calcium 8.4 L (8.6-10.3) mg/dl AST 11 L (13-39) U/L ALT 13 (7-52) U/L Alkaline Phosphatase 73 (34-104) U/L Total Protein 5.6 L D (6.0-8.3) gm/dl Albumin 3.2 L (3.4-5.0) gm/dl Intake and Output 10/04/23 10/04/23 10/04/23 06:59 14:59 22:59 Intake Total 750.600 / 750.600 Output Total 300 / 455 1150 / 1150 Balance -300 / 1210.801 -399.400 / -399.400 Intake: IV 270.600 / 270.600 Heparin Sodium/Dextrose 25,000 270.600 / 270.600 units In 500 ml @ 950 UNITS/HR 19 mls/hr IV .Q24H [facility] Rx#: [id number] Oral 480 / 480 Output: Urine Amount (Catheter) 300 / 450 1150 / 1150 Tapia/Indwelling 300 / 450 1150 / 1150 Other: Weight 78.2 kg Weight Measurement Method Built in [facility] Diagnostic Findings Telemetry reviewed: Afib ranging 100-110 Echo completed yesterday reviewed Afib with mildly elevated rates noted during study Mild concentric LVH Moderate diffuse LV hypokinesis with akinesis within septal/inferior wallace. LVEF 35-40% Moderate MR Medications Administered Current Inpatient Medications Acetaminophen (Acetaminophen 325 Mg Tab) 650 mg PO Q4H PRN PRN Reason: Moderate Pain (Scale 4, 5, 6) Stop: 11/01/23 18:15 Furosemide (Furosemide Inj 20 Mg/2 Ml Vial) 20 mg IV DAILY [facility] Stop: 11/02/23 08:59 Last Admin: 10/04/23 08:55 Dose: 20 mg Furosemide (Furosemide Inj 20 Mg/2 Ml Vial) 20 mg IV NOW STA Stop: 10/04/23 16:19 Heparin Sodium/Dextrose (Heparin Sodium/Dextrose) 25,000 units in 500 mls @ 19 mls/hr IV .Q24H [facility]; Protocol Stop: 11/01/23 14:29 Last Titration: 10/04/23 08:43 Dose: 950 units/hr, 19 mls/hr Levalbuterol HCl (Levalbuterol 1.25mg/0.5ml Neb) 1.25 mg NEB Q2H PRN; Protocol PRN Reason: Shortness Of Breath Stop: 11/01/23 18:34 Metoprolol Tartrate (Metoprolol Tartrate 25 Mg Tab) 12.5 mg PO BID [facility] Stop: 11/02/23 20:59 Last Admin: 10/04/23 08:55 Dose: 12.5 mg Ondansetron HCl (Ondansetron Inj 2 Mg/Ml 2 Ml Vial) 4 mg IV Q4H PRN PRN Reason: Nausea And Vomiting Stop: 11/01/23 18:15
[2023-10-04] MEDS: DIGOXIN 125 MCG in SYRINGE 9.5 ML IV ONE (16:40)
[2023-10-04] MEDS: FUROSEMIDE INJ 20 MG/2 ML VIAL IV STA (16:40)
--- NOTE | 2023-10-05 06:32 | Hospitalist Progress Note ---
Date of Service October 04, 2023 Assessment & Plan (1) Atrial fibrillation, new onset: (2) Acute respiratory failure with hypoxia: (3) Atrial fibrillation with rapid ventricular response: (4) Acute HFrEF (heart failure with reduced ejection fraction): Plan Pt is an 88-year-old male with PMHx significant for GERD, 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 Acute hypoxic Respiratory Failure Pt presented with oxygen saturation in the 80s, new oxygen requirement VBG pH 7.35, pCO2 of 56, was reportedly on bipap at one point Biofire negative Chest XRAY with cardiomegaly with mild congestive change and trace bilateral pleural effusions. Symptoms likely in setting of a fib with RVR, acute HFrEF (see below) Oxygen supplementation as needed, wean as tolerated Currently on RA Atrial Fibrillation with RVR HR in 130s on presentation EKG with a fib with rvr with HR 122 Was started on po metoprolol tartrate 25mg q6h on admission for rate control, however was held for multiple doses due to low BP Cardiology previously consulted- pt received dose of IV digoxin 125mcg, transitioned to met tart 12.5mg BID On heparin drip for anticoagulation, continue Continue to monitor on telemetry Acute HFrEF BNP 672 EKG with a fib with rvr with HR 122, trop wnl Echo with EF 35-40%, mild LVH, moderate L ventricle hypokinesis, moderate mitral regurgitation Continue IV Lasix 20mg Tapia for accurate I and O, daily weights Monitor BP with diuresis and heart rate control noted above Constipation Was started on miralax and dulcolax Pt with reported diarrhea per nursing, discontinued DVT ppx: heparin gtt currently FEN/GI: HH diet/fluid restriction 1500 ml/low sodium CODE: DNR/DNI Dispo: PT recommending rehab Admission and Anticipated Discharge Date Admission Date: October 02, 2023 Subjective Pt seen sitting in chair at bedside. Denied acute issues. Extensive discussion with present about dispo needs and current course. would like to discuss further with CM. Review of Systems Review of Systems: All systems reviewed & are unremarkable except as noted in Subjective Physical Exam Physical Exam: General: Alert. No acute distress Skin: No noted rashes or bruises Psych: Appropriate mood and affect Neuro:Difficulty with movements HEENT: NC/AT Chest: Nontender to palpation. CV: Irregular Resp: Breath sounds clear bilaterally, no increased effort of breathing. Abdomen: Soft, nontender Extremities: edema in lower extremities bilaterally. Results & Data Results & Data Vital Signs (Past 12 Hours) Vital Signs Temp Pulse Pulse Resp BP Pulse Ox O2 Del Method 10/04/23 11:58 36.6 C 104 H 18 94/62 L 96 Room Air 10/04/23 08:18 36.5 C 111 H 18 113/73 96 Nasal Cannula 10/04/23 08:15 105 H 10/04/23 08:00 Nasal Cannula 10/04/23 03:46 36.4 C L 104 H 16 92/66 L 98 Nasal Cannula O2 Flow Rate 10/04/23 11:58 10/04/23 08:18 2 10/04/23 08:15 10/04/23 08:00 2 10/04/23 03:46 2
[2023-10-05 06:44] LABS: Hematocrit (blood only) 35.2 % (42.0-52.0); Hemoglobin 12.6 g/dl (14.0-18.0); Mean Corpuscular Hemoglobin 34.4 pg (25.0-34.0); Mean Corpuscular Hgb Conc 35.8 g/dL (32.0-36.0); Mean Corpuscular Volume 96.2 fL (80.0-100.0); Mean Platelet Volume 11.4 fL (9.4-12.4); Platelet Count 229 K/uL (130-400); RDW Coefficient of Variation 15.5 % (11.5-14.5); Red Blood Count 3.66 M/uL (4.70-6.10); White Blood Count 10.27 K/ul (4.8-10.8)
[2023-10-05 07:03] LABS: Albumin Globulin Ratio 1.3 (0.9-2); Albumin Level 3.2 gm/dl (3.4-5.0); BUN Creatinine Ratio 32.5 (10-20); Bilirubin,Total 0.9 mg/dl (0.2-1.0); Calcium 8.5 mg/dl (8.6-10.3); Creatinine Clr Calc Pharmacy 39.4 ml/min; Est GFR (Non-African American) 51.7 ml/min; Globulin 2.4 gm/dl (2.5-4.0); Total Protein 5.6 gm/dl (6.0-8.3)
[2023-10-05 07:10] LABS: ANTI-Xa, UFH(UnfractionatedHep 0.39 IU/ml (0.3-0.7)
--- NOTE | 2023-10-05 07:26 | XRay Report ---
XR chest 1V portable HISTORY: 88 years-old Male CHF acute shortness of breath with congestive heart failure COMPARISON: 10/02/2023 TECHNIQUE: AP view of the chest FINDINGS: Cardiomegaly with unchanged pulmonary edema. No pneumothorax. Layering pleural effusions with mildly progressive bibasilar opacities. Degenerative changes of the shoulders and spine. IMPRESSION: 1. Cardiomegaly with persistent pulmonary edema. 2. Layering pleural effusions with bibasilar consolidation which has mildly progressed. ACT 112: Negative or not required by law. The above report was generated using voice recognition software. It may contain grammatical, syntax o r spelling errors. Electronically signed by: Donis Fuller M.D. 10/05/2023 7:25 AM
[2023-10-05] MEDS: FUROSEMIDE INJ 20 MG/2 ML VIAL IV SCH (10:05)
[2023-10-05] MEDS: DIGOXIN 0.125 MG TAB PO SCH (10:05)
--- NOTE | 2023-10-05 10:44 | Cardiology Progress Note ---
Date of Service October 05, 2023 Assessment & Plan (1) Acute respiratory failure with hypoxia: (2) Atrial fibrillation with rapid ventricular response: (3) Acute heart failure with reduced ejection fraction and diastolic dysfunction: Plan Patient admitted for signs/symptoms of possible respiratory virus x2 weeks with cough/SOB, however viral panel has been negative. Symptoms now associated with SOB, edema and small b/l pleural effusions, suggesting symptoms are likely due to acute CHF exacerbation. Echo completed since admission with moderately reduced LVEF at 35-40%. EKG without ischemic changes. HS troponin negative. Likely old [place] based on echo findings. Medical management recommended. No symptoms to suggest angina. Continue ASA. Continue low dose furosemide 20 mg IV BP hypotensive and limiting guideline directed medications for CHF. Continue low dose beta marilee as BP allow. Monitor I+O's Daily weight, standing scale. In regards to afib RVR, patient started on metoprolol 12.5 mg q 6 hours, however dose has been held multiple times due to hypotension. Give digoxin 125 mcg x1 dose IV now Monitor on telemetry. continue metoprolol tartrate 12.5 mg q 6 with holding parameters. Continue IV heparin for now. Stroke risks discussed with patient/ - [id number] score of 3 (age, CHF) and may benefit from roasterman anticoagulation. No history of frequent falls, typically fairly active. No history of anemia or bleeding. 10/04/23: HR trending down but remains borderline elevated. Beta marilee limited due to hypotension Received dose of digoxin yesterday and repeat IV digoxin today. Possibly transition to oral dose tomorrow Continue low dose metoprolol 12.5 mg BID. Continue IV furosemide. Received one dose of 20 mg IV this morning. Repeat one dose 20 mg x1 now. Will hold diuretics in AM and review labs/BP. Repeat chest xray in AM. Continue unfractionated heparin for now, roasterman anticoagulation will need to be discussed. CHADSVASC score of 3 Conservative management for presumed underlying coronary heart disease Continue ASA. 10/05/23: Patient with persistent cough, pulm edema on xray with b/l pleural effusions. Increase furosemide to 20 mg IV BID today. Dose limited due to hypotension Monitor I+O's. Monitor renal function, electrolytes. Afib rates have improved with several doses of IV digoxin, now transitioning to oral digoxin 125 mcg - 1 tab daily Continue metoprolol 12.5 mg BID. Dose limited by hypotension CHADSVASC score of 3 - continue IV heparin for now. 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 No history of bleeding complications. No recent falls. But patient is elderly and frail. Not able to add other GDMT for cardiomyopathy given hypotension. No ARNEL/ARB or Entresto. Conservative therapies recommended for underlying CAD. Currently on heparin. Add ASA on discharge if not initiating anticoagulation Case discussed with Dr. Schulz I spent a total of 35 minutes on the date of service in preparation, delivery, and documentation of the care provided to this patient, excluding any time spent in the performance of separately billed services. Marion Sky PA-C Department of Cardiology, [facility] This chart was completed in part utilizing Speech Voice Recognition Software. Grammatical errors, random word insertions, pronoun errors, and incomplete sentences are an occasional consequence of this system due to software limitations, ambient noise, and hardware issues. Any formal questions or concerns about the content, text, or information contained within the body of this dictation should be directly addressed to the provider for clarification. Admission and Anticipated Discharge Date Admission Date: October 02, 2023 Supervising Physician Co-Signing Physician Notes I have reviewed the advance practitioner's documentation, and I agree with, and take responsibility for the plan of care. Subjective: Patient without acute symptoms at the time my assessment. Telemetry reveals AF with HR 90-100 bpm. Denies CP or SOB. Poor historian. Exam: Cardiovascular: Irregular rhythm, II/ systolic murmur, 12+ lower extremity edema. Pulm: Diminished breath sounds at the bases bilateral. Data: A/P: 88 y/o male with acute heart failure with reduced ejection fraction, atrial fibrillation with rapid ventricular response, and chronic hypotension. Heart rate control improving over the past 24 hours. Continue rate control strategy with digoxin, and low dose metoprolol. Titrate furosemide to 20 mg IV twice daily. Add potassium supplementation, KCl 20 mEq daily. Monitor fluid balance, daily weight, GFR, and electrolytes. I spent a total of 20 minutes coordinating, documenting, and providing care for this patient excluding time spent in the performance of separately billed services or time spent by another provider. Subjective Patient resting in bed this morning. Reports feeling "better". Still has loose cough. Still with edema, but improved from yesterday. No SOB at rest. No chest pain. No dizziness. Tolerating medications. Review of Systems Review of Systems: All systems reviewed & are unremarkable except as noted in HPI & below Physical Exam Constitutional: WD/WN, vitals as above + ill appearing; no acute distress Respiratory: no respiratory distress and no labored breathing Auscultation: + crackles and + rhonchi Cardiovascular: Rate/Rhythm: + tachycardic and + irregularly irregular Vessels: + JVD Extremities: + edema (1-2+ b/l) Gastrointestinal (Abdomen): normal bowel sounds, soft, nontender, no hepatosplenomegaly Neurologic: PERRL, EOMI, accommodation nl, no face palsy, no dysarthria Results & Data Vital Signs (Past 12 Hours) Vital Signs Temp Pulse Pulse Resp BP Pulse Ox O2 Del Method 10/05/23 10:05 97 H 10/05/23 08:31 36.5 C 103 H 18 118/73 92 Room Air 10/05/23 08:00 Room Air 10/05/23 08:00 97 H 10/05/23 03:05 36.5 C 103 H 18 111/78 93 Room Air Laboratory Results Cardiac Enzymes 10/05/23 Range/Units 06:02 AST 11 L (13-39) U/L CBC 10/05/23 Range/Units 06:02 WBC 10.27 (4.8-10.8) K/ul RBC 3.66 L (4.70-6.10) M/uL Hgb 12.6 L (14.0-18.0) g/dl Hct 35.2 L (42.0-52.0) % Plt Count 229 (130-400) K/uL Comprehensive Metabolic Panel 10/05/23 Range/Units 06:02 Sodium 137 (136-145) mmol/L Potassium 4.0 (3.5-5.1) mmol/L Chloride 101 (98-107) mmol/L Carbon Dioxide 30 (21-32) mmol/L BUN 40 H (6-23) mg/dl Creatinine 1.23 (0.6-1.4) mg/dl Glucose 119 H (70-99(Fasting)) mg/dl Calcium 8.5 L (8.6-10.3) mg/dl AST 11 L (13-39) U/L ALT 12 (7-52) U/L Alkaline Phosphatase 75 (34-104) U/L Total Protein 5.6 L (6.0-8.3) gm/dl Albumin 3.2 L (3.4-5.0) gm/dl Intake and Output 10/04/23 10/05/23 10/05/23 22:59 06:59 14:59 Intake Total 428.450 / 428.450 Output Total 1450 / 3050 450 / 3050 Balance -1450 / -2299.400 -450 / -2299.400 428.450 / 428.450 Intake: IV 428.450 / 428.450 Heparin Sodium/Dextrose 25,000 428.450 / 428.450 units In 500 ml @ 950 UNITS/HR 19 mls/hr IV .Q24H [facility] Rx#: [id number] Output: Urine Amount (Catheter) 1450 / 3050 450 / 3050 Tapia/Indwelling 1450 / 3050 450 / 3050 Diagnostic Findings Telemetry reviewed: AFib in the 90-110 bmp range. Chest xray reviewed from today: IMPRESSION: 1. Cardiomegaly with persistent pulmonary edema. 2. Layering pleural effusions with bibasilar consolidation which has mildly progressed. Medications Administered Current Inpatient Medications Acetaminophen (Acetaminophen 325 Mg Tab) 650 mg PO Q4H PRN PRN Reason: Moderate Pain (Scale 4, 5, 6) Stop: 11/01/23 18:15 Digoxin (Digoxin 0.125 Mg Tab) 0.125 mg PO QAM [facility] Stop: 11/04/23 08:59 Last Admin: 10/05/23 10:05 Dose: 0.125 mg Furosemide (Furosemide Inj 20 Mg/2 Ml Vial) 20 mg IV BID [facility] Stop: 11/04/23 08:59 Last Admin: 10/05/23 10:05 Dose: 20 mg Heparin Sodium/Dextrose (Heparin Sodium/Dextrose) 25,000 units in 500 mls @ 19 mls/hr IV .Q24H [facility]; Protocol Stop: 11/01/23 14:29 Last Admin: 10/05/23 07:17 Dose: Not Given Levalbuterol HCl (Levalbuterol 1.25mg/0.5ml Neb) 1.25 mg NEB Q2H PRN; Protocol PRN Reason: Shortness Of Breath Stop: 11/01/23 18:34 Metoprolol Tartrate (Metoprolol Tartrate 25 Mg Tab) 12.5 mg PO BID [facility] Stop: 11/02/23 20:59 Last Admin: 10/05/23 08:28 Dose: 12.5 mg Ondansetron HCl (Ondansetron Inj 2 Mg/Ml 2 Ml Vial) 4 mg IV Q4H PRN PRN Reason: Nausea And Vomiting Stop: 11/01/23 18:15
--- NOTE | 2023-10-05 17:45 | Hospitalist Progress Note ---
Date of Service October 05, 2023 Assessment & Plan (1) Atrial fibrillation, new onset: (2) Acute respiratory failure with hypoxia: (3) Atrial fibrillation with rapid ventricular response: (4) Acute HFrEF (heart failure with reduced ejection fraction): Plan Pt is an 88-year-old male with PMHx significant for GERD, 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 Acute hypoxic Respiratory Failure Pt presented with oxygen saturation in the 80s, new oxygen requirement On admission, VBG pH 7.35, pCO2 of 56, was on bipap at one point Biofire negative Chest XRAY with cardiomegaly with mild congestive change and trace bilateral pleural effusions. Symptoms likely in setting of a fib with RVR, acute HFrEF (see below) Oxygen supplementation as needed, wean as tolerated Atrial Fibrillation with RVR HR in 130s on presentation EKG with a fib with rvr with HR 122 Was started on po metoprolol tartrate 25mg q6h on admission for rate control, however was held for multiple doses due to low BP Cardiology on board, appreciate recs -Digoxin and low dose metoprolol for rate control, monitoring BP as pt on hypotensive side -Continue IV heparin at this time for anticoagulation Continue to monitor on telemetry Acute HFrEF BNP 672 EKG with a fib with rvr with HR 122, trop wnl Echo with EF 35-40%, mild LVH, moderate L ventricle hypokinesis, moderate mitral regurgitation Continue IV Lasix 20mg, increased to BID dosing Vera for accurate I and O, daily weights Monitor BP with diuresis and heart rate control noted above Holding off on ARNEL/ARB, Entresto due to hypotension Constipation Was started on miralax and dulcolax Pt with reported diarrhea per nursing, discontinued Last BM on 10/03/22 DVT ppx: heparin gtt currently FEN/GI: HH diet/fluid restriction 1500 ml/low sodium CODE: DNR/DNI Dispo: PT recommending rehab Admission and Anticipated Discharge Date Admission Date: October 02, 2023 Subjective Pt was seen with at bedside. Questions answered and reassured. Concern about vera being and how long. Pt states that he feels good. Would like to go home. Review of Systems Review of Systems: All systems reviewed & are unremarkable except as noted in Subjective Physical Exam Physical Exam: General: Alert. No acute distress Skin: No noted rashes or bruises Psych: Appropriate mood and affect Neuro:Difficulty with movements HEENT: NC/AT Chest: Nontender to palpation. CV: Irregular Resp: Breath sounds coarse, coughing, no increased effort of breathing. Abdomen: Soft, nontender Extremities: edema in lower extremities bilaterally. Results & Data Results & Data Vital Signs (Past 12 Hours) Vital Signs Temp Pulse Pulse Resp BP Pulse Ox O2 Del Method 10/05/23 16:34 98 H 10/05/23 15:12 36.6 C 100 H 16 107/78 96 Room Air 10/05/23 11:29 35.7 C L 87 16 97/68 L 97 Room Air 10/05/23 10:05 97 H 10/05/23 08:31 36.5 C 103 H 18 118/73 92 Room Air 10/05/23 08:00 Room Air 10/05/23 08:00 97 H
[2023-10-06 07:08] LABS: Hematocrit (blood only) 37.1 % (42.0-52.0); Hemoglobin 13.2 g/dl (14.0-18.0); Mean Corpuscular Hemoglobin 32.7 pg (25.0-34.0); Mean Corpuscular Hgb Conc 35.6 g/dL (32.0-36.0); Mean Corpuscular Volume 91.8 fL (80.0-100.0); Platelet Count 200 K/uL (130-400); RDW Coefficient of Variation 14.6 % (11.5-14.5); RDW Standard Deviation 46.5 fL (36.4-46.3); Red Blood Count 4.04 M/uL (4.70-6.10); White Blood Count 8.97 K/ul (4.8-10.8)
[2023-10-06 07:59] LABS: Albumin Globulin Ratio 1.3 (0.9-2); Albumin Level 3.1 gm/dl (3.4-5.0); BUN Creatinine Ratio 31.7 (10-20); Bilirubin,Total 1.1 mg/dl (0.2-1.0); Calcium 8.5 mg/dl (8.6-10.3); Est GFR (African American) 76.1 ml/min; Est GFR (Non-African American) 65.6 ml/min; Globulin 2.4 gm/dl (2.5-4.0); Magnesium 1.9 mg/dl (1.7-2.4); Phosphorus 2.9 mg/dl (2.5-4.9); Potassium 3.7 mmol/L (3.5-5.1); Total Protein 5.5 gm/dl (6.0-8.3)
--- NOTE | 2023-10-06 09:11 | Hospitalist Progress Note ---
Date of Service October 06, 2023 Assessment & Plan (1) Atrial fibrillation, new onset: (2) Acute respiratory failure with hypoxia: (3) Atrial fibrillation with rapid ventricular response: (4) Acute HFrEF (heart failure with reduced ejection fraction): Plan Pt is an 88-year-old male with PMHx significant for GERD, 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 Acute hypoxic Respiratory Failure Pt presented with oxygen saturation in the 80s, new oxygen requirement On admission, VBG pH 7.35, pCO2 of 56, was on bipap at one point Biofire negative Chest XRAY with cardiomegaly with mild congestive change and trace bilateral pleural effusions. Symptoms likely in setting of a fib with RVR, acute HFrEF (see below) Oxygen supplementation as needed, wean as tolerated Atrial Fibrillation with RVR HR in 130s on presentation EKG with a fib with rvr with HR 122 Was started on po metoprolol tartrate 25mg q6h on admission for rate control, however was held for multiple doses due to low BP Cardiology on board, appreciate recs -Digoxin and low dose metoprolol for rate control, monitoring BP as pt on hypotensive side -Continue IV heparin at this time for anticoagulation Continue to monitor on telemetry Acute HFrEF BNP 672 EKG with a fib with rvr with HR 122, trop wnl Echo with EF 35-40%, mild LVH, moderate L ventricle hypokinesis, moderate mitral regurgitation Per cardiology, continue IV Lasix 20mg BID. Low dose spironolactone added on 10/06, chest xray from 10/05 showing progressing layering pleural effusions. Willie for accurate I and O, daily weights Monitor BP with diuresis and heart rate control noted above Holding off on ARNEL/ARB, Entresto due to hypotension Appreciate Cardiology recs Constipation Was started on miralax and dulcolax Pt with reported diarrhea per nursing, discontinued Last BM on 10/03/22 DVT ppx: heparin gtt currently FEN/GI: HH diet/fluid restriction 1500 ml/low sodium CODE: DNR/DNI Dispo: PT recommending rehab Admission and Anticipated Discharge Date Admission Date: October 02, 2023 Subjective Pt was seen sitting in bed eating breakfast. Stated he was doing well but asking for his . Slightly confused this AM. Review of Systems Review of Systems: All systems reviewed & are unremarkable except as noted in Subjective Physical Exam Physical Exam: General: Alert. No acute distress Skin: No noted rashes or bruises Psych: Appropriate mood and affect Neuro:Difficulty with movements HEENT: NC/AT Chest: Nontender to palpation. CV: Irregular Resp: Breath sounds decreased, no increased effort of breathing. Abdomen: Soft, nontender Extremities: edema in lower extremities bilaterally. Results & Data Results & Data Vital Signs (Past 12 Hours) Vital Signs Temp Pulse Pulse Resp BP Pulse Ox O2 Del Method 10/06/23 08:02 88 20 99/67 L 94 Nasal Cannula 10/06/23 04:04 36.6 C 85 20 98/66 L 95 Nasal Cannula 10/05/23 23:59 102/64 91 Nasal Cannula 10/05/23 23:43 36.5 C 89 20 102/64 89 L Nasal Cannula 10/05/23 22:00 94 H O2 Flow Rate 10/06/23 08:02 10/06/23 04:04 2 10/05/23 23:59 2 10/05/23 23:43 2 10/05/23 22:00
--- NOTE | 2023-10-06 09:40 | Cardiology Progress Note ---
Date of Service October 06, 2023 Assessment & Plan (1) Heart failure, systolic, with acute decompensation: (2) Atrial fibrillation with rapid ventricular response: (3) Acute respiratory failure with hypoxia: Plan 88 year old male patient initially admitted with cough and shortness of breath attributed to a URI and acute decompensated systolic and diastolic congestive heart failure with small bilateral pleural effusions and atrial fibrillation with a rapid ventricular response. Acute decompensated systolic and diastolic congestive heart failure. LVEF 35 to 40%. Narrow QRS duration. EKG without acute change. High-sensitivity troponin negative. Echo with an old [place]. Patient without overt angina. Volume status improving though patient remains mildly hypervolemic. Continue IV furosemide. Supplement potassium. Add low-dose spironolactone. Continue medical ma nagement. Hypotension limiting appropriate guideline directed medical therapy. No ARNEL/ARB/Entresto at this point. Atrial fibrillation with a rapid ventricular response. Ventricular rates acceptably controlled present on metoprolol tartrate 12.5 mg twice per day and oral digoxin 125 mcg/day. Switch to metoprolol succinate in AM. Continue low- dose oral digoxin. [id number] score 3 points. Risks and benefits of anticoagulation discussed with patient and . notes personally having atrial fibrillation, on Eliquis, followed by Dr. Berry. Continue heparin for now, transitioning to Eliquis anticoagulation, 5 mg twice per day. Discontinue aspirin. Admission and Anticipated Discharge Date Admission Date: October 02, 2023 Supervising Physician Co-Signing Physician Notes I have reviewed the advance practitioner's documentation, and I agree with, and take responsibility for the plan of care. Subjective: Patient without acute symptoms at the time my assessment. Telemetry reveals AF with HR 80-90 bpm. Denies CP or SOB. Poor historian. Exam: Cardiovascular: Irregular rhythm, II/ systolic murmur, 12+ lower extremity edema. Pulm: Diminished breath sounds at the bases bilateral. Data: A/P: 88 y/o male with acute heart failure with reduced ejection fraction, atrial fibrillation, and chronic hypotension. Heart rate controlled over the past 24 hours. Continue rate control strategy with digoxin, and low dose metoprolol. IV anticoagulation with heparin currently. Transition to Eliquis prior to discharge. Continue furosemide to 20 mg IV twice daily with potassium supplementation, KCl 20 mEq daily. Monitor fluid balance, daily weight, GFR, and electrolytes. Cautious addition of low-dose spironolactone today. I spent a total of 30 minutes coordinating, documenting, and providing care for this patient excluding time spent in the performance of separately billed services or time spent by another provider. Subjective Patient seen and examined. Chart, medications, and telemetry reviewed. at bedside. Feeling better. Ongoing cough, chest congestion. Peripheral edema has improved but not resolved. Tapia catheter in place. I's/O's -3402 mL overall. Telemetry: Atrial fibrillation with a controlled ventricular response over the last 12 hours. Resting echocardiography on October 03, 2023: A-fib with mildly elevated rate. Mild concentric LVH. Moderate diffuse LV hypokinesis with more focal hypokinesis to akinesis encompassing the septal and inferior wallace. LV systolic function moderately reduced, EF 35 to 40%. Moderate aortic valve sclerosis, without significant aortic valve stenosis. Moderate mitral regurgitation. Review of Systems Review of Systems: Complete review of systems is otherwise as stated above, negative, or noncontributory. Physical Exam Physical Exam: General: A&Ox3. NAD. HENT: Normocephalic. Atraumatic. Eyes: PER. Conjunctiva pink, sclera clear. Neck: JVD. Heart: Irregularly irregular at 90 bpm. No murmur appreciated. No rub. Lungs: Bibasilar crackles. No wheeze. Abdomen: +BS. Soft. Nontender. No masses or organomegaly. Tapia catheter in place Extremities: Trace to 1+ pretibial edema. No clubbing. No cyanosis Limited neurological examination is without focal deficits. Pulses: radial=2/4, posterior tibial=1/4. Results & Data Vital Signs (Past 12 Hours) Vital Signs Temp Pulse Pulse Resp BP Pulse Ox O2 Del Method 10/06/23 08:02 88 20 99/67 L 94 Nasal Cannula 10/06/23 04:04 36.6 C 85 20 98/66 L 95 Nasal Cannula 10/05/23 23:59 102/64 91 Nasal Cannula 10/05/23 23:43 36.5 C 89 20 102/64 89 L Nasal Cannula 10/05/23 22:00 94 H O2 Flow Rate 10/06/23 08:02 10/06/23 04:04 2 10/05/23 23:59 2 10/05/23 23:43 2 10/05/23 22:00 Laboratory Results Cardiac Enzymes 10/06/23 Range/Units 06:20 AST 11 L (13-39) U/L CBC 10/06/23 Range/Units 06:20 WBC 8.97 (4.8-10.8) K/ul RBC 4.04 L (4.70-6.10) M/uL Hgb 13.2 L (14.0-18.0) g/dl Hct 37.1 L (42.0-52.0) % Plt Count 200 (130-400) K/uL Comprehensive Metabolic Panel 10/06/23 Range/Units 06:20 Sodium 139 (136-145) mmol/L Potassium 3.7 (3.5-5.1) mmol/L Chloride 100 (98-107) mmol/L Carbon Dioxide 35 H (21-32) mmol/L BUN 32 H (6-23) mg/dl Creatinine 1.01 (0.6-1.4) mg/dl Glucose 104 H (70-99(Fasting)) mg/dl Calcium 8.5 L (8.6-10.3) mg/dl AST 11 L (13-39) U/L ALT 10 (7-52) U/L Alkaline Phosphatase 71 (34-104) U/L Total Protein 5.5 L (6.0-8.3) gm/dl Albumin 3.1 L (3.4-5.0) gm/dl Intake and Output 10/05/23 10/06/23 10/06/23 22:59 06:59 14:59 Intake Total 560 / 1415.250 355.617 / 1415.250 Output Total 800 / 2750 750 / 2750 Balance -240 / -1334.750 -394.383 / -1334.750 Intake: IV 355.617 / 855.250 Heparin Sodium/Dextrose 25,000 355.617 / 855.250 units In 500 ml @ 950 UNITS/HR 19 mls/hr IV .Q24H [facility] Rx#: [id number] Oral 560 / 560 Output: Urine Amount (Catheter) 800 / 2750 750 / 2750 Tapia/Indwelling 800 / 2750 750 / 2750 Diagnostic Findings Cardiac Enzymes 10/06/23 Range/Units 06:20 AST 11 L (13-39) U/L CBC 10/06/23 Range/Units 06:20 WBC 8.97 (4.8-10.8) K/ul RBC 4.04 L (4.70-6.10) M/uL Hgb 13.2 L (14.0-18.0) g/dl Hct 37.1 L (42.0-52.0) % Plt Count 200 (130-400) K/uL Comprehensive Metabolic Panel 10/06/23 Range/Units 06:20 Sodium 139 (136-145) mmol/L Potassium 3.7 (3.5-5.1) mmol/L Chloride 100 (98-107) mmol/L Carbon Dioxide 35 H (21-32) mmol/L BUN 32 H (6-23) mg/dl Creatinine 1.01 (0.6-1.4) mg/dl Glucose 104 H (70-99(Fasting)) mg/dl Calcium 8.5 L (8.6-10.3) mg/dl AST 11 L (13-39) U/L ALT 10 (7-52) U/L Alkaline Phosphatase 71 (34-104) U/L Total Protein 5.5 L (6.0-8.3) gm/dl Albumin 3.1 L (3.4-5.0) gm/dl Intake and Output 10/05/23 10/06/23 10/06/23 22:59 06:59 14:59 Intake Total 560 / 1415.250 355.617 / 1415.250 Output Total 800 / 2750 750 / 2750 Balance -240 / -1334.750 -394.383 / -1334.750 Intake: IV 355.617 / 855.250 Heparin Sodium/Dextrose 25,000 355.617 / 855.250 units In 500 ml @ 950 UNITS/HR 19 mls/hr IV .Q24H [facility] Rx#: [id number] Oral 560 / 560 Output: Urine Amount (Catheter) 800 / 2750 750 / 2750 Tapia/Indwelling 800 / 2750 750 / 2750
[2023-10-06] MEDS: POTASSIUM CHLORIDE CRTAB 20 MEQ TABCR PO ONE (10:24)
[2023-10-06] MEDS: POTASSIUM CHLORIDE CRTAB 20 MEQ TABCR PO SCH (10:25)
[2023-10-06] MEDS: SPIRONOLACTONE 12.5 MG TAB PO SCH (10:25)
[2023-10-06] MEDS: DOCUSATE SODIUM 100 MG CAP PO SCH (13:45)
[2023-10-07 04:54] LABS: Hematocrit (blood only) 36.6 % (42.0-52.0); Hemoglobin 12.9 g/dl (14.0-18.0); Mean Corpuscular Hemoglobin 33.2 pg (25.0-34.0); Mean Corpuscular Hgb Conc 35.2 g/dL (32.0-36.0); Mean Corpuscular Volume 94.1 fL (80.0-100.0); Mean Platelet Volume 11.1 fL (9.4-12.4); Platelet Count 215 K/uL (130-400); RDW Coefficient of Variation 14.7 % (11.5-14.5); Red Blood Count 3.89 M/uL (4.70-6.10); White Blood Count 8.35 K/ul (4.8-10.8)
[2023-10-07 05:15] LABS: ANTI-Xa, UFH(UnfractionatedHep 0.37 IU/ml (0.3-0.7)
[2023-10-07 05:20] LABS: Albumin Globulin Ratio 1.1 (0.9-2); BUN Creatinine Ratio 31.2 (10-20); Calcium 8.4 mg/dl (8.6-10.3); Creatinine Clr Calc Pharmacy 52.1 ml/min; Est GFR (African American) 84.1 ml/min; Est GFR (Non-African American) 72.5 ml/min; Globulin 2.7 gm/dl (2.5-4.0); Magnesium 1.9 mg/dl (1.7-2.4); Phosphorus 2.7 mg/dl (2.5-4.9); Potassium 3.8 mmol/L (3.5-5.1); Total Protein 5.7 gm/dl (6.0-8.3)
[2023-10-07] MEDS: METOPROLOL SUCC 25MG EXT REL TAB PO SCH (09:31)
--- NOTE | 2023-10-07 10:02 | Cardiology Progress Note ---
Date of Service October 07, 2023 Assessment & Plan (1) Heart failure, systolic, with acute decompensation: (2) Atrial fibrillation with rapid ventricular response: (3) Acute respiratory failure with hypoxia: Plan 88 year old male patient admitted with cough and shortness of breath, URI and acute decompensated systolic and diastolic congestive heart failure with small bilateral pleural effusions and atrial fibrillation with a rapid ventricular response. Acute decompensated systolic and diastolic congestive heart failure. LVEF 35 to 40%. Narrow QRS duration. EKG without acute change. High-sensitivity troponin negative. Echo with an old MD. Patient without overt angina. Volume status improving though remains hypervolemic. Continue IV furosemide. Supplement potassium today. Low-dose spironolactone added on October 06, 2023; continue. Continue medical management. Borderline blood pressures have limited guideline directed medical therapy. No ARNEL/ARB/Entresto at this point. Atrial fibrillation with a rapid ventricular response. Ventricular rates acc eptably controlled. Lopressor transitioned to Toprol-XL 25 mg/day on October 07, 2023. Continue low-dose digoxin. Check digoxin level. [id number] score 3 points. Risks and benefits of anticoagulation discussed with patient and on October 06, 2023. noted personally having atrial fibrillation, on Eliquis, followed by Dr. Berry. Plan is to transition from heparin to Eliquis anticoagulation, discontinuing aspirin. Admission and Anticipated Discharge Date Admission Date: October 02, 2023 Supervising Physician Co-Signing Physician Notes I have reviewed the advance practitioner's documentation, and I agree with, and take responsibility for the plan of care. Subjective: Patient without acute symptoms at the time my assessment. Telemetry reveals AF with HR 80-90 bpm. Denies CP or SOB. Poor historian. Negative fluid balance since admission. Weight loss recorded. Renal function remained stable. Exam: Cardiovascular: Irregular rhythm, II/ systolic murmur, 12+ lower extremity edema. Pulm: Diminished breath sounds at the bases bilateral. Data: A/P: 88 y/o male with acute heart failure with reduced ejection fraction, atrial fibrillation, and chronic hypotension. Heart rate controlled over the past 24 hours. Continue rate control strategy with digoxin, and low dose metoprolol. IV anticoagulation with heparin currently. Transition to Eliquis prior to discharge. Discontinue aspirin. Continue furosemide to 20 mg IV twice daily with potassium supplementation, KCl 20 mEq daily. Monitor fluid balance, daily weight, GFR, and electrolytes. Continue low-dose spironolactone (added 10/06/2023). Subjective Patient seen and examined. Chart, medications, and telemetry reviewed. Ongoing cough productive of phlegm, chest congestion. No chest pain. No pal pitations. Tapia catheter in place. I's/O's -4311 mL overall Creatinine stable. Telemetry: Atrial fibrillation with heart rates predominantly in the 70s to 90s. No significant bradycardia. No periods of sinus. Resting echocardiography on October 03, 2023: A-fib with mildly elevated rate. Mild concentric LVH. Moderate diffuse LV hypokinesis with more focal hypokinesis to akinesis encompassing the septal and inferior wallace. LV systolic function moderately reduced, EF 35 to 40%. Moderate aortic valve sclerosis, without significant aortic valve stenosis. Moderate mitral regurgitation. Review of Systems Review of Systems: Complete review of systems is otherwise as stated above, negative, or noncontributory. Physical Exam Physical Exam: General: Alert to person and place but not to time. NAD. HENT: Normocephalic. Atraumatic. Eyes: PER. Conjunctiva pink, sclera clear. Neck: JVD. Heart: Irregularly irregular at 80 bpm. No murmur appreciated. No rub. Lungs: Bibasilar crackles. Scattered rhonchi Abdomen: +BS. Soft. Nontender. No masses or organomegaly. Tapia catheter in place Extremities: Trace to 1+ pretibial edema. No clubbing. No cyanosis Limited neurological examination is without focal deficits. Pulses: radial=2/4, posterior tibial=1/4. Results & Data Vital Signs (Past 12 Hours) Vital Signs Temp Pulse Pulse Resp BP Pulse Ox O2 Del Method 10/07/23 09:00 36.5 C 99 H 110/71 91 Room Air 10/07/23 02:21 36.6 C 82 18 113/68 91 Room Air 10/06/23 23:17 36.4 C L 87 18 103/76 93 Room Air 10/06/23 22:59 88 Laboratory Results Cardiac Enzymes 10/07/23 Range/Units 04:24 AST 13 (13-39) U/L CBC 10/07/23 Range/Units 04:24 WBC 8.35 (4.8-10.8) K/ul RBC 3.89 L (4.70-6.10) M/uL Hgb 12.9 L (14.0-18.0) g/dl Hct 36.6 L (42.0-52.0) % Plt Count 215 (130-400) K/uL Comprehensive Metabolic Panel 10/07/23 Range/Units 04:24 Sodium 137 (136-145) mmol/L Potassium 3.8 (3.5-5.1) mmol/L Chloride 98 (98-107) mmol/L Carbon Dioxide 33 H (21-32) mmol/L BUN 29 H (6-23) mg/dl Creatinine 0.93 (0.6-1.4) mg/dl Glucose 113 H (70-99(Fasting)) mg/dl Calcium 8.4 L (8.6-10.3) mg/dl AST 13 (13-39) U/L ALT 12 (7-52) U/L Alkaline Phosphatase 66 (34-104) U/L Total Protein 5.7 L (6.0-8.3) gm/dl Albumin 3.0 L (3.4-5.0) gm/dl Intake and Output 10/06/23 10/07/23 10/07/23 22:59 06:59 14:59 Intake Total 347.217 / 1066.001 229.267 / 1066.001 Output Total 1974 Balance -602.783 / -908.999 -95.733 / -908.999 Intake: IV 97.217 / 456.001 229.267 / 456.001 Heparin Sodium/Dextrose 25,000 97.217 / 456.001 229.267 / 456.001 units In 500 ml @ 950 UNITS/HR 19 mls/hr IV .Q24H [facility] Rx#: [id number] Oral 250 / 610 Output: Urine Amount (Catheter) 1974 Tapia/Indwelling 1974 Other: Weight 76.3 kg Weight Measurement Method Built in [facility]
[2023-10-07] MEDS: POTASSIUM CHLORIDE 10 MEQ TABCR PO ONE (11:41)
--- NOTE | 2023-10-07 14:25 | Hospitalist Progress Note ---
Date of Service October 07, 2023 Assessment & Plan (1) Atrial fibrillation, new onset: (2) Acute respiratory failure with hypoxia: (3) Atrial fibrillation with rapid ventricular response: (4) Acute HFrEF (heart failure with reduced ejection fraction): Plan Pt is an 88-year-old male with PMHx significant for GERD, 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 Acute hypoxic Respiratory Failure Pt presented with oxygen saturation in the 80s, new oxygen requirement On admission, VBG pH 7.35, pCO2 of 56, was on bipap at one point Biofire negative Chest XRAY with cardiomegaly with mild congestive change and trace bilateral pleural effusions. Symptoms likely in setting of a fib with RVR, acute HFrEF (see below) Oxygen supplementation as needed, wean as tolerated Atrial Fibrillation with RVR HR in 130s on presentation EKG with a fib with rvr with HR 122 Was started on po metoprolol tartrate 25mg q6h on admission for rate control, however was held for multiple doses due to low BP Cardiology on board, appreciate recs -Digoxin and low dose metoprolol for rate control, monitoring BP as pt on hypotensive side -Continue IV heparin at this time for anticoagulation, plan to transition to Eliquis Continue to monitor on telemetry Acute HFrEF BNP 672 EKG with a fib with rvr with HR 122, trop wnl Echo with EF 35-40%, mild LVH, moderate L ventricle hypokinesis, moderate mitral regurgitation Per cardiology, continue IV Lasix 20mg BID. Low dose spironolactone added on 10/06, chest xray from 10/05 showing progressing layering pleural effusions. Vera for accurate I and O, daily weights Monitor BP with diuresis and heart rate control noted above Holding off on ARNEL/ARB, Entresto due to hypotension Appreciate Cardiology recs Dysuria Pt noted burning with vera in place on 10/07. UA ordered. Follow and treat as needed Constipation Was started on miralax and dulcolax Pt with reported diarrhea per nursing, discontinued Last BM on 10/03/22 DVT ppx: heparin gtt currently FEN/GI: HH diet/fluid restriction 1500 ml/low sodium CODE: DNR/DNI Dispo: PT recommending rehab Admission and Anticipated Discharge Date Admission Date: October 02, 2023 Subjective pt was seen with at bedside. States that he is having some discomfort with the vera and asking about having it out. Review of Systems Review of Systems: All systems reviewed & are unremarkable except as noted in Subjective Physical Exam Physical Exam: General: Alert. No acute distress Skin: No noted rashes or bruises Psych: Appropriate mood and affect Neuro:Difficulty with movements HEENT: NC/AT Chest: Nontender to palpation. CV: Irregular Resp: Breath sounds decreased, no increased effort of breathing. Abdomen: Soft, nontender Extremities: edema in lower extremities bilaterally. Results & Data Results & Data Vital Signs (Past 12 Hours) Vital Signs Temp Pulse Resp BP Pulse Ox O2 Del Method 10/07/23 11:03 36.4 C L 88 20 93/60 L 93 Room Air 10/07/23 09:00 36.5 C 99 H 110/71 91 Room Air 10/07/23 02:21 36.6 C 82 18 113/68 91 Room Air
[2023-10-08 04:57] LABS: Basophils # (auto) 0.03 K/uL (0.00-0.20); Basophils % (auto) 0.3 %; Eosinophils # (auto) 0.08 K/uL (0.00-0.50); Eosinophils % (auto) 0.7 %; Hematocrit (blood only) 38.2 % (42.0-52.0); Hemoglobin 13.2 g/dl (14.0-18.0); Immature Granulocytes % (auto) 0.9 %; Lymphocytes # (auto) 0.99 K/uL (1.20-3.40); Lymphocytes % (auto) 8.6 %; Mean Corpuscular Hgb Conc 34.6 g/dL (32.0-36.0); Mean Corpuscular Volume 92.5 fL (80.0-100.0); Mean Platelet Volume 11.3 fL (9.4-12.4); Monocytes # (auto) 0.88 K/uL (0.11-0.59); Monocytes % (auto) 7.7 %; Neutrophils # (auto) 9.38 K/uL (1.40-6.50); Neutrophils % (auto) 81.8 %; Platelet Count 225 K/uL (130-400); RDW Coefficient of Variation 14.6 % (11.5-14.5); RDW Standard Deviation 48.6 fL (36.4-46.3); Red Blood Count 4.13 M/uL (4.70-6.10); White Blood Count 11.46 K/ul (4.8-10.8)
[2023-10-08 05:05] LABS: Albumin Globulin Ratio 1.1 (0.9-2); Albumin Level 3.1 gm/dl (3.4-5.0); BUN Creatinine Ratio 27.6 (10-20); Bilirubin,Total 1.2 mg/dl (0.2-1.0); Calcium 8.6 mg/dl (8.6-10.3); Creatinine Clr Calc Pharmacy 55.7 ml/min; Est GFR (African American) 88.7 ml/min; Est GFR (Non-African American) 76.5 ml/min; Globulin 2.8 gm/dl (2.5-4.0); Magnesium 1.9 mg/dl (1.7-2.4); Phosphorus 2.8 mg/dl (2.5-4.9); Potassium 4.2 mmol/L (3.5-5.1); Total Protein 5.9 gm/dl (6.0-8.3)
[2023-10-08 05:31] LABS: ANTI-Xa, UFH(UnfractionatedHep 0.34 IU/ml (0.3-0.7)
--- NOTE | 2023-10-08 08:43 | Cardiology Progress Note ---
Date of Service October 08, 2023 Assessment & Plan (1) Heart failure, systolic, with acute decompensation: (2) Atrial fibrillation with rapid ventricular response: (3) Acute respiratory failure with hypoxia: Plan 88 year old male patient admitted with cough and shortness of breath, URI and acute decompensated systolic and diastolic congestive heart failure with small bilateral pleural effusions and atrial fibrillation with a rapid ventricular response. Acute decompensated systolic and diastolic congestive heart failure. LVEF 35 to 40%. Narrow QRS duration. EKG without acute change. High-sensitivity troponin negative. Echo with an old [place]. Patient without angina. Volume status appears euvolemic. Discontinue IV furosemide (20 mg twice daily), transitioning to oral furosemide (40 mg/day). Continue low-dose spironolactone (12.5 mg/day). Decrease potassium chloride from 20 mEq/day to 10 mEq/day. Continue medical management as blood pressure allows. Hypotension will not permit GDMT ARNEL/ARB/Entresto at this point. Atrial fibrillation with a rapid ventricular response. Ventricular rates acceptably controlled on the current rate lowering regimen. Continue Toprol-XL 25 mg/day and digoxin 125 mcg/day. [id number] score 3 points. Risks and benefits of anticoagulation discussed with patient and on October 06, 2023. Robert noted personally having atrial fibrillation, on Eliquis, followed by Dr. Berry. Recommend transitioning heparin to Eliquis anticoagulation, 5 mg twice per day. Discontinue aspirin. Increase activity as tolerated. Admission and Anticipated Discharge Date Admission Date: October 02, 2023 Supervising Physician Co-Signing Physician Notes Patient was seen and personally examined. Ambulating with walker in room and in hallway. Tapia catheter remains in place Full assessment and plan as well outlined above. Still with significant mental status challenges with delirium/dementia Exam: Heart rate 85 blood pressure 101/69 Lungs clear with fair Cardiovascular Jhonatan irregularly irregular with rate controlled Plan: As above transition diuretics to oral regimen. Anticoagulation being initiated with some risk given impulsiveness. All parties aware Subjective Patient seen and examined. Chart, medications, and telemetry reviewed. Confusion noted. Patient notes improvement in cough, chest congestion, peripheral edema, and energy. No chest pain. No palpitations. I's/O's -5,328 mL's overall Creatinine stable. Telemetry: Atrial fibrillation with heart rates predominantly 80s and 90s. Resting echocardiography on October 03, 2023: A-fib with mildly elevated rate. Mild concentric LVH. Moderate diffuse LV hypokinesis with more focal hypokinesis to akinesis encompassing the septal and inferior wallace. LV systolic function moderately reduced, EF 35 to 40%. Moderate aortic valve sclerosis, without significant aortic valve stenosis. Moderate mitral regurgitation Review of Systems Review of Systems: A complete and accurate review of systems was unable to be obtained, Re: Confusion Physical Exam Physical Exam: General: Alert to person and place but not to time. NAD. HENT: Normocephalic. Atraumatic. Eyes: PER. Conjunctiva pink, sclera clear. Neck: JVD. Heart: Irregularly irregular at 90 bpm. No murmur appreciated. No rub. Lungs: Improved aeration. Decreased breath sounds at the bases. Less rhonchorous. No wheeze. Abdomen: +BS. Soft. Nontender. No masses or organomegaly. Tapia catheter in place Extremities: No significant edema. No clubbing. No cyanosis. Limited neurological examination is without focal deficits. Pulses: radial=2/4, posterior tibial=1/4. Results & Data Vital Signs (Past 12 Hours) Vital Signs Temp Pulse Pulse Resp BP Pulse Ox O2 Del Method 10/08/23 03:06 36.5 C 90 18 109/69 92 Room Air 10/07/23 23:41 36.7 C 92 H 18 106/73 90 Room Air 10/07/23 22:00 93 H Laboratory Results Cardiac Enzymes 10/08/23 Range/Units 04:34 AST 13 (13-39) U/L CBC 10/08/23 Range/Units 04:34 WBC 11.46 H (4.8-10.8) K/ul RBC 4.13 L (4.70-6.10) M/uL Hgb 13.2 L (14.0-18.0) g/dl Hct 38.2 L (42.0-52.0) % Plt Count 225 (130-400) K/uL Neut # (Auto) 9.38 H (1.40-6.50) K/uL Lymph # (Auto) 0.99 L (1.20-3.40) K/uL [place] # (Auto) 0.88 H (0.11-0.59) K/uL Eos # (Auto) 0.08 (0.00-0.50) K/uL Baso # (Auto) 0.03 (0.00-0.20) K/uL Comprehensive Metabolic Panel 10/08/23 Range/Units 04:34 Sodium 136 (136-145) mmol/L Potassium 4.2 (3.5-5.1) mmol/L Chloride 98 (98-107) mmol/L Carbon Dioxide 33 H (21-32) mmol/L BUN 24 H (6-23) mg/dl Creatinine 0.87 (0.6-1.4) mg/dl Glucose 121 H (70-99(Fasting)) mg/dl Calcium 8.6 (8.6-10.3) mg/dl AST 13 (13-39) U/L ALT 12 (7-52) U/L Alkaline Phosphatase 69 (34-104) U/L Total Protein 5.9 L (6.0-8.3) gm/dl Albumin 3.1 L (3.4-5.0) gm/dl Intake and Output 10/07/23 10/08/23 10/08/23 22:59 06:59 14:59 Intake Total 733.516 / 733.516 Output Total 1200 / 1751 Balance -466.484 / -1017.484 Intake: IV 173.516 / 173.516 Heparin Sodium/Dextrose 25,000 173.516 / 173.516 units In 500 ml @ 950 UNITS/HR 19 mls/hr IV .Q24H [facility] Rx#: [id number] Oral 560 / 560 Output: Urine Amount (Catheter) 1200 / 1750 Tapia/Indwelling 1200 / 1750 Other: Weight 73.9 kg Weight Measurement Method Built in [facility]
[2023-10-08 11:09] LABS: Appearance Urine Clear (Clear); Bacteria Urine Automated Negative (Negative); Bilirubin Urine Negative (Negative); Blood Urine Negative (Negative); Color Urine Yellow; Glucose Urine UA Negative (Negative); Ketones Urine Negative (Negative); Leukocyte Esterase Urine 1+ (Negative); Nitrite Urine Negative (Negative); RBC Urine Automated 0-4 /hpf (0-4); Specific Gravity Urine 1.017 (1.000-1.030); Urobilinogen Urine Negative (Negative); pH Urine >= 9.0 (4.5-7.5)
[2023-10-08 11:12] LABS: Protein Urine Trace (Negative)
[2023-10-08] MEDS: cefTRIAXone SODIUM 2,000 MG in DEXTROSE 5 % MINI-B 50 ML IV SCH (13:30)
--- NOTE | 2023-10-08 15:28 | Discharge Summary ---
Discharge Summary Date of Service October 08, 2023 Notes For Next Care Provider Please monitor blood pressure after discharge Please limit falls as much as possible-pt and opting for Eliquis use for anticoagulation in setting of atrial fibrillation. Aware of risks. Please ensure close follow up with Cardiology Medication Changes From Visit Started on: -Lasix 40mg daily -Spironolactone 12.5mg daily -potassium chloride 10mEq daily -metoprolol succinate 25mg daily -digoxin 0.125mg daily -Eliquis 5mg BID STOP: -aspirin 81mg Admission HPI Per Admitting Provider This is an 88-year-old male with PMHx of GERD, history of basal cell carcinoma of scalp/skin of neck, mitral valve regurgitation, history of colonic polyp removal, presents to the hospital with acute onset of shortness of breath. He was sent over from urgent care visit to facility because of O2 sats reading in the high 80s low 90s.. Patient is found to be in what appears to be new onset heart failure and atrial fibrillation with heart rate of 120-130s upon presentation. He notes that he has had viral symptoms for a few weeks. Here his BNP is 672, heart rate in the 130s, BP is stable at 116/94, he was placed on DuoNeb treatment and BiPAP and his respiratory status significantly improved. VBG showing pH of 7.35, P CO2 56. The patient is present at bedside. Pt states that on Sep 17 pt went to a nurse visit for a cough, was given mucinex. He was working with a nurse and got a cough medication Desolin every 12 hrs. Pt still with a nonproductive cough. He has had dizziness, nausea and sometimes disoriented. Pt concerned that he wasn't breathing well, not getting enough O2. She has attempted to get in contact with provider since last due to his decline, but today was instructed to go to urgent care clinic. They referred him here. Pt notes he has never had heart issues before, denies swelling in the legs, but notes there is some puffiness compared to normal. He admits to increased shortness of breath on exertion, no orthopnea. He has never required previous hospitalization. notes that he has never experienced intermittent memory issues or timeframes of delirium prior to having these viral symptoms and issues he is currently experiencing. Admission Exam Per Admitting Provider General: awake, alert, no apparent distress, elderly white male Head: Normocephalic, atraumatic ENT: PERRL, EOMI, no pharyngeal exudate, mucous membranes moist Chest: Wet breath sounds, on 3 L via NC, wet cough is nonproductive Cardiac:+ atrial fibrillation with RVR, no murmur, no JVD, normal peripheral pulses, good capillary refill Abdominal: NABS x 4 quadrants, soft, nondistended, nontender to palpation, no rebound or guarding Extremities: Normal inspection, 2+ peripheral edema up to knees, dull erythema BLE, no signs of acute skin infection, calfs nontender to palpation Psych: Normal mood and affect Neuro: AAO x 3, strength intact bilaterally and rated 5/5, no motor deficits, speech is clear, no peripheral sensory deficits Principal Dx & Hospital Course #1 = Principal Diagnosis (1) Atrial fibrillation, new onset: (2) Acute respiratory failure with hypoxia: (3) Atrial fibrillation with rapid ventricular response: (4) Acute HFrEF (heart failure with reduced ejection fraction): Plan Pt is an 88-year-old male with PMHx significant for GERD, 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 Acute hypoxic Respiratory Failure Pt presented with oxygen saturation in the 80s, new oxygen requirement On admission, VBG pH 7.35, pCO2 of 56, was on bipap at one point Biofire negative Chest XRAY with cardiomegaly with mild congestive change and trace bilateral pleural effusions. Symptoms likely in setting of a fib with RVR, acute HFrEF (see below) Oxygen supplementation as needed, wean as tolerated Pt was on RA on discharge Atrial Fibrillation with RVR HR in 130s on presentation EKG with a fib with rvr with HR 122 Was started on po metoprolol tartrate 25mg q6h on admission for rate control, however was held for multiple doses due to low BP Cardiology consulted, appreciate recs -Started on Digoxin and low dose metoprolol for rate control, monitoring BP as pt on hypotensive side -IV heparin for anticoagulation, transitioned to Eliquis 5mg BID -Per Cardiology, discharge regimen of metoprolol succinate 25mg daily with digoxin 0.125mg daily -Cardiology had discussion with pt and about risks of anticoagulation, pt a fall risk, requesting anticoagulation with Eliquis 5mg BID. -recommended discontinuing home baby aspirin while on Eliquis. Cardiology followup in 1-2 weeks after discharge. Acute HFrEF BNP 672 EKG with a fib with rvr with HR 122, trop wnl Echo with EF 35-40%, mild LVH, moderate L ventricle hypokinesis, moderate mitral regurgitation Per cardiology, treated with IV Lasix 20mg BID. Low dose spironolactone added on 10/06, chest xray from 10/05 showing progressing layering pleural effusions. Vera for accurate I and O, daily weights. Pt discharged with the same. Further care and removal after voiding trial at [facility]. Monitor BP with diuresis and heart rate control noted above Holding off on ARNEL/ARB/Entresto due to hypotension Cardiology consulted, recommended the following for discharge: -po lasix 40mg daily -Spironolactone 12.5mg daily -potassium chloride 10mEq daily Cardiology followup Dysuria Pt noted burning with vera in place on 10/07. UA ordered- not suggestive of infection Continue to monitor Constipation Was started on miralax and docusate Pt with reported diarrhea per nursing, both discontinued Last BM on 10/03/22 Continue with docusate on discharge Discharge Exam General: Alert. No acute distress Skin: No noted rashes or bruises Psych: Appropriate mood and affect Neuro:Difficulty with movements HEENT: NC/AT Chest: Nontender to palpation. CV: Irregular Resp: Breath sounds decreased, no increased effort of breathing. Abdomen: Soft, nontender Extremities: edema in lower extremities bilaterally. Updated Medication List Medication Instructions Recorded Confirmed Type docusate sodium 100 mg capsule 100 mg PO DAILY 10/02/23 10/02/23 History (Dulcolax Stool Softener (docusate)) apixaban 5 mg tablet (Eliquis) 5 mg PO BID #60 tabs 10/08/23 Rx digoxin 125 mcg (0.125 mg) tablet 0.125 mg PO QAM #30 tabs 10/08/23 Rx (Digitek) furosemide 40 mg tablet 40 mg PO QAM #30 tabs 10/08/23 Rx metoprolol succinate 25 mg 25 mg PO QAM #30 tabs 10/08/23 Rx tablet,extended release 24 hr potassium chloride 10 mEq 10 meq PO QAM #30 tabs 10/08/23 Rx tablet,extended release(part/cryst) spironolactone 25 mg tablet 12.5 mg (1/2 x 25 mg) PO DAILY #15 10/08/23 Rx tabs Hospital Stay Data Consultations 10/02/23 14:10 ED Decision to Admit Stat 10/02/23 18:16 Consult Cardiology Routine Diagnostic Imagining Performed Chest X-Ray 10/02/23 12:37 XR chest 1V portable HISTORY: Sepsis COMPARISON: None. FINDINGS: No pneumothorax. The heart is enlarged. Trace bilateral pleural fusions and bibasilar linear densities. There is diffuse interstitial/vascular thickening consistent with mild congestive change. Calcifications within the aortic knob. No acute fractures identified. IMPRESSION: 1. Cardiomegaly with mild congestive change and trace bilateral pleural effusions. 2. Bibasilar linear densities are nonspecific but may represent atelectasis. A pneumonia could also have a similar appearance in the appropriate clinical setting. ACT 112: Negative or not required by law. Electronically signed by: Alon Shaikh M.D. 10/02/2023 1:23 PM Chest X-Ray 10/05/23 08:00 XR chest 1V portable HISTORY: 88 years-old Male CHF acute shortness of breath with congestive heart failure COMPARISON: 10/02/2023 TECHNIQUE: AP view of the chest FINDINGS: Cardiomegaly with unchanged pulmonary edema. No pneumothorax. Layering pleural effusions with mildly progressive bibasilar opacities. Degenerative changes of the shoulders and spine. IMPRESSION: 1. Cardiomegaly with persistent pulmonary edema. 2. Layering pleural effusions with bibasilar consolidation which has mildly progressed. ACT 112: Negative or not required by law. The above report was generated using voice recognition software. It may contain grammatical, syntax or spelling errors. Electronically signed by: Donis Fuller M.D. 10/05/2023 7:25 AM Pending Results Patient Have Any Pending Studies at Discharge: No Discharge Instructions Given to Patient (Per Discharging Provider) Mr. Lopez, You are being discharged to [facility]. While you were here you were seen by Cardiology and they started you on several medications. In addition they recommend that you discontinue the baby aspirin you were taking at home. Your medications are as follows: -Lasix 40mg daily -Spironolactone 12.5mg daily -potassium chloride 10mEq daily -metoprolol succinate 25mg daily -digoxin 0.125mg daily -Eliquis 5mg BID You opted to continue with the blood thinner Eliquis and you and your indicated that you were aware of the risks. Please be careful and try to limit falls as much as possible. Please keep close follow up with Cardiology after discharge. We are discharging you with a vera catheter. Further care and removal of that will be dictated by the provider at [facility]. Please keep close follow up with your primary care provider as well after discharge. Please do not hesitate to come back to the emergency room if your symptoms worsen or return. It was a pleasure taking care of you while you were here. Total Time Total Time Spent Total Time Spent (In Minutes): >30 minutes
[2023-10-08] MEDS ORDERED: APIXABAN 5 MG TABLET PO SCH (21:00)
[2023-10-09] MEDS ORDERED: POTASSIUM CHLORIDE 10 MEQ TABCR PO SCH (09:00)
[2023-10-09] MEDS ORDERED: FUROSEMIDE 40 MG TAB PO SCH (09:00)
== END 2023-10-08 16:02 | DRG 291 ==
LOC: ED 12:31 → SUATTDRO 14:24 → 2S 14:24